=== PATIENT | female | born 1940 | race Caucasian/White ===

== ENCOUNTER 2016-11-29 18:42 | Inpatient (IN) | payer MEDICARE, OTHER ==
[~2016-11-29] VITALS: Ht 162.6 cm; Wt 71.8 kg
--- NOTE | 2016-11-29 18:48 | ED.ADGEN ---
Past History Past Medical History: Dementia, UTI Adult General Chief Complaint Chief Complaint ".. Nothing is really bothering in me.." HPI HPI Patient is a 76 year old female who presents with above hx and complaints of mental status change. Pt. Primary is Dr. Jose Onofre. Pt. has a hx of dementia, Alzheimer, hyper thyroid. Pt has new exacerbation of dementia complaints, Hallucinations, increased confusion, urinating on floors, constantly agitated, walking floors , going into other pts. rooms, psychotic behaviors, talking to people not present. Patient recently had a neuro-psych evaluation prior to admission to [place], [place]. She has been a resident there since 11/28/16. Mohit Brasher, . Family advised patient has had some of these problems agitation, delusions, confusion, and disruptive behavior for some time, it just that behavioral management has become more difficult. Current [facility] at [facility] requested further evaluation because of behavior management problems. Review of Systems Review of Systems Constitutional: Denies fever or chills [] Eyes: Denies change in visual acuity, redness, or eye pain [] HENT: Denies nasal congestion or sore throat [] Respiratory: Denies cough or shortness of breath [] Cardiovascular: No additional information not addressed in HPI [] GI: Denies abdominal pain, nausea, vomiting, bloody stools or diarrhea [] : Denies dysuria or hematuria [] Musculoskeletal: Denies back pain or joint pain [] Integument: Denies rash or skin lesions [] Neurologic: Denies headache, focal weakness or sensory changes [] Endocrine: Denies polyuria or polydipsia [] Family History Family History Noncontributory Current Medications Current Medications Current Medications Medications (Trade) Dose Ordered Sig/Venita Start Time Stop Time Status Last Admin Dose Admin Diphenhydramine HCl (Benadryl) 25 mg STK-MED ONCE 11/29/16 20:02 11/29/16 20:03 DC Lorazepam (Ativan) 1 mg 1X ONCE 11/29/16 20:00 11/29/16 20:11 DC 11/29/16 20:05 1 MG Olanzapine (Zyprexa) 10 mg 1X ONCE 11/29/16 20:00 11/29/16 20:12 DC 11/29/16 20:05 10 MG See nursing for home meds Allergies Allergies Allergies Coded Allergies Type Severity Reaction Last Updated Verified No Known Drug Allergies 11/29/16 No NKDA Physical Exam Physical Exam Constitutional: no acute distress, non-toxic appearance. [] HENT: Normocephalic, atraumatic, bilateral external ears normal, oropharynx moist, no oral exudates, nose normal. [] Eyes: PERRLA, EOMI, conjunctiva normal, no discharge. [] Neck: Normal range of motion, no tenderness, supple, no stridor. [] Cardiovascular:Heart rate regular rhythm, no murmur , PMI to Lt. Lungs & Thorax: Bilateral breath sounds clear to auscultation at apexes. Abdomen: Bowel sounds normal, soft, no tenderness, no masses, no pulsatile masses. Obese. Skin: Warm, dry, no erythema, no rash. Poor turgor. Back: No tenderness, no CVA tenderness. [] Extremities: No tenderness, no cyanosis, no clubbing, ROM intact, no edema. Arthritic changes.- Neurologic: Alert and oriented X 3, gross motor function deficits,no gross sensory function deficits, moves all ext. on request and is ambulatory with slightly wide gait. . DTR's 2 patella and brachial. Psychologic: Affect mildly anxious, judgement unable to determine, mood normal. At base line per son and at her bedside. Current Patient Data Vital Signs Vital Signs Date Time Temp Pulse Resp B/P Pulse Ox O2 Delivery O2 Flow Rate FiO2 11/29/16 20:16 98.2 11/29/16 20:10 72 16 140/71 98 Room Air Lab Results Laboratory Tests Test 11/29/16 19:10 11/29/16 19:30 White Blood Count 7.5x10^3/uL (4.0-11.0) Red Blood Count 4.42x10^6/uL (3.50-5.40) Hemoglobin 13.4g/dL (12.0-15.5) Hematocrit 41.0% (36.0-47.0) Mean Corpuscular Volume 93fL (79-100) Mean Corpuscular Hemoglobin 30pg (25-35) Mean Corpuscular Hemoglobin Concent 33g/dL (31-37) Red Cell Distribution Width 14.2% (11.5-14.5) Platelet Count 215x10^3/uL (140-400) Neutrophils (%) (Auto) 68% (31-73) Lymphocytes (%) (Auto) 19% (24-48) L Monocytes (%) (Auto) 8% (0-9) Eosinophils (%) (Auto) 4% (0-3) H Basophils (%) (Auto) 1% (0-3) Neutrophils # (Auto) 5.1x10^3uL (1.8-7.7) Lymphocytes # (Auto) 1.4x10^3/uL (1.0-4.8) Monocytes # (Auto) 0.6x10^3/uL (0.0-1.1) Eosinophils # (Auto) 0.3x10^3/uL (0.0-0.7) Basophils # (Auto) 0.0x10^3/uL (0.0-0.2) Erythrocyte Sedimentation Rate Pending Sodium Level 141mmol/L (136-145) Potassium Level 3.7mmol/L (3.5-5.1) Chloride Level 106mmol/L (98-107) Carbon Dioxide Level 28mmol/L (21-32) Anion Gap 7 (6-14) Blood Urea Nitrogen 14mg/dL (7-20) Creatinine 0.9mg/dL (0.6-1.0) Estimated GFR (Cockcroft-Gault) 61.2 Glucose Level 182mg/dL (70-99) H Calcium Level 8.8mg/dL (8.5-10.1) Magnesium Level 2.1mg/dL (1.8-2.4) Total Bilirubin 0.6mg/dL (0.2-1.0) Direct Bilirubin 0.1mg/dL (0.0-0.2) Aspartate Amino Transferase (AST) 27U/L (15-37) Alanine Aminotransferase (ALT) 46U/L (14-59) Alkaline Phosphatase 75U/L (46-116) Creatine Kinase 188U/L (26-192) Creatine Kinase MB (Mass) 2.7ng/mL (0.0-3.6) Creatine Kinase MB Relative Index 1.4% (0-4) Troponin I Quantitative < 0.017ng/mL (0-0.055) C-Reactive Protein 1.6mg/L (0-3.3) XS-Gqv-M-Type Natriuretic Peptide 383pg/mL (0-124) H Total Protein 6.2g/dL (6.4-8.2) L Albumin 3.3g/dL (3.4-5.0) L Lipase 235U/L (73-393) Urine Collection Type U cath Urine Color Yellow Urine Clarity Clear Urine pH 5.0 Urine Specific [place] 1.015 Urine Protein Neg (NEG-TRACE) Urine Glucose (UA) Negmg/dL (NEG) Urine Ketones (Stick) 15mg/dL (NEG) Urine Blood Small (NEG) Urine Nitrite Pos (NEG) Urine Bilirubin Neg (NEG) Urine Urobilinogen Dipstick 0.2mg/dL (0.2 mg/dL) Urine Leukocyte Esterase Small (NEG) Urine RBC 1-2/HPF (0-2) Urine WBC >40/HPF (0-4) Urine Squamous Epithelial Cells Mod/LPF Urine Bacteria Mod/HPF (0-FEW) Urine Opiates Screen Neg (NEG) Urine Methadone Screen Neg (NEG) Urine Barbiturates Neg (NEG) Urine Phencyclidine Screen Neg (NEG) Urine Amphetamine/Methamphetamine Neg (NEG) Urine Benzodiazepines Screen Neg (NEG) Urine Cocaine Screen Neg (NEG) Urine Cannabinoids Screen Neg (NEG) Urine Ethyl Alcohol Neg (NEG) EKG EKG My interpretation of EKG shows a sinus rhythm at 81 bpm. Does have left axis deviation. Some anterior fascicular block. No finding to acute STEMI of contralateral changes. [] Radiology/Procedures Radiology/Procedures My interpretation CT of head shows dilated ventricles. Generalized atrophy. No findings of acute bleed, edema, shift, mass, or bleed or fracture. [] My interpretation chest x-ray shows chronic changes . Large H. Hernia. Course & Med Decision Making Course & Med Decision Making Pertinent Labs and Imaging studies reviewed. (See chart for details)./ Admit to Dr. Middleton, Consult to Med- Dr. Middleton- for follow up UA, Glucose and Thyroid and pending labs. UA still pending at time of admit. [] Final Impression Final Impression 1. Mental Status Change 2. Dementia[]-Alzheimer 3. History of hyperthyroid ? 4. Elevated Glucose 5. UTI 6. H. Hernia 7. Delusions Problems: Dragon Disclaimer Dragon Disclaimer This electronic medical record was generated, in whole or in part, using a voice recognition dictation system. JASON CUEVA MD Nov 29, 2016 18:48
--- NOTE | 2016-11-29 19:14 | EKG ---
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
[2016-11-29 19:48] LABS: BASO % 1 % (0-3); EOS # 0.3 x10^3/uL (0.0-0.7); EOS % 4 % (0-3); HEMOGLOBIN 13.4 g/dL (12.0-15.5); LYMPH # 1.4 x10^3/uL (1.0-4.8); LYMPH % 19 % (24-48); MEAN CORPUSCULAR HEMOGLOBIN 30 pg (25-35); MEAN CORPUSCULAR HGB CONC 33 g/dL (31-37); MEAN CORPUSCULAR VOLUME 93 fL (79-100); MONO # 0.6 x10^3/uL (0.0-1.1); MONO % 8 % (0-9); NEUT # 5.1 x10^3uL (1.8-7.7); NEUT % 68 % (31-73); PLATELET COUNT 215 x10^3/uL (140-400); RED BLOOD COUNT 4.42 x10^6/uL (3.50-5.40); RED CELL DISTRIBUTION WIDTH 14.2 % (11.5-14.5); WHITE BLOOD COUNT 7.5 x10^3/uL (4.0-11.0)
[2016-11-29] MEDS ORDERED: OLANZAPINE 2.5 MG TABLET PO ONE (20:00)
[2016-11-29] MEDS ORDERED: LORAZEPAM 1 MG TABLET. PO ONE (20:00)
[2016-11-29] MEDS ORDERED: DIPHENHYDRAMINE HCL 50 MG CAPSULE PO ONE (20:00)
[2016-11-29] MEDS ORDERED: DIPHENHYDRAMINE HCL 25 MG CAPSULE PO ONE (20:02)
[2016-11-29 20:09] LABS: ALBUMIN 3.3 g/dL (3.4-5.0); C REACTIVE PROTEIN 1.6 mg/L (0-3.3); CALCIUM 8.8 mg/dL (8.5-10.1); CREATININE 0.9 mg/dL (0.6-1.0); DIRECT BILIRUBIN 0.1 mg/dL (0.0-0.2); GFR 61.2; MAGNESIUM 2.1 mg/dL (1.8-2.4); POTASSIUM 3.7 mmol/L (3.5-5.1); TOTAL BILIRUBIN 0.6 mg/dL (0.2-1.0); TOTAL PROTEIN 6.2 g/dL (6.4-8.2)
[2016-11-29 20:10] LABS: AMPHETAMINE/METHAMPHETAMINE NEG (NEG); BARBITURATES NEG (NEG); BENZODIAZEPINES NEG (NEG); CANNABINOIDS NEG (NEG); COCAINE NEG (NEG); METHADONE NEG (NEG); OPIATES NEG (NEG); PHENCYCLIDINE NEG (NEG)
--- NOTE | 2016-11-29 20:13 | RAD ---
PROCEDURE CT of the head without contrast HISTORY Mental status change. Frequent falls. TECHNIQUE Standard noncontrast images are obtained. Exposure: One or more of the following individualized dose reduction techniques were utilized for this exam: 1. Automated exposure control. 2. Adjustment of the mA and/or kV according to patient size. 3. Use of iterative reconstruction technique. COMPARISON None FINDINGS Posterior fossa unremarkable. Partially included sinuses are clear. Visualized orbits unremarkable. No acute skull pathology. No acute intracranial hemorrhage, mass effect, midline shift or abnormal extra-axial fluid collection. Generalized atrophy is seen. Enlargement of the lateral ventricles may be due to atrophy, but hydrocephalus is possible as well. Low-density in the white matter bilaterally, typically represent small vessel ischemic disease in a patient of this age. Orbits unremarkable. Partially visualized paranasal sinuses are clear. No evidence of acute skull abnormality IMPRESSION 1. Chronic changes as detailed above. 2. No evidence of acute intracranial pathology. Electronically signed by: Deion Goldberg MD (Nov 29, 2016 20:12:49)
[2016-11-29 20:19] LABS: BILIRUBIN,URINE NEG (NEG); CLARITY,URINE CLEAR; COLOR,URINE YELLOW; GLUCOSE,URINE NEG (NEG); NITRITE,URINE POS (NEG); UROBILINOGEN,URINE 0.2 mg/dL (0.2 mg/dL)
[2016-11-29 20:20] LABS: BACTERIA,URINE MOD /HPF (0-FEW); SQUAMOUS EPITHELIAL CELL,UR MOD /LPF; WBC,URINE >40 /HPF (0-4)
[2016-11-29] MEDS ORDERED: [UNRECOGNIZED DRUG - CODE] PO (20:31)
[2016-11-29] MEDS ORDERED: SERT25TA PO (20:31)
[2016-11-29] MEDS ORDERED: MEMA5TAB PO ×2 (20:31)
[2016-11-29] MEDS ORDERED: CALC-222 PO (20:31)
[2016-11-29] MEDS ORDERED: LEVO25TA2 PO (20:31)
[2016-11-29] MEDS ORDERED: RIVA1PAT TD (20:31)
[2016-11-29] MEDS ORDERED: MEMA7CAP PO (20:31)
[2016-11-29] MEDS ORDERED: RALO60TA PO (20:31)
[2016-11-29] MEDS ORDERED: OLAN10TA5 PO (20:31)
[2016-11-29] MEDS ORDERED: OLAN2.5T3 PO (20:31)
[2016-11-29] MEDS ORDERED: MAG HYDROX/AL HYDROX/SIMETH 30 ML ORAL.SUSP PO PRN (20:45)
[2016-11-29] MEDS ORDERED: ACETAMINOPHEN 325 MG TABLET PO PRN (20:45)
[2016-11-29] MEDS ORDERED: METHYL SALICYLATE/MENTHOL TOPICAL OINTMENT 29GM TUBE. TP PRN (20:45)
[2016-11-29 21:16] LABS: SEDIMENTATION RATE 8 (0-25)
[2016-11-29] MEDS: CEPHALEXIN 500 MG CAPSULE PO SCH (21:39)
[2016-11-29] MEDS: MEMANTINE 5 MG TABLET. PO SCH (21:39)
[2016-11-29 22:37] VITALS: BP 129/70
[2016-11-29] MEDS ORDERED: IOHEXOL 300 MG/ML 75 ML VIAL. IV ONE (22:45)
[2016-11-29] MEDS ORDERED: CONTRAST GIVEN MC PRN (22:45)
--- NOTE | 2016-11-29 23:24 | RAD ---
PROCEDURE Bilateral lower extremity venous Doppler HISTORY elevated d-dimer 1.38
pt has no leg complaints

limted eval of the calf veins due to pt agitation TECHNIQUE Venous Doppler was utilized to evaluate the lower extremities. Real-time imaging with compression, color flow imaging and spectral Doppler with augmentation were utilized for evaluation. COMPARISON None FINDINGS The common femoral, femoral, greater saphenous, and popliteal veins are compressible in both lower extremities. There is normal antegrade flow with augmentation. There is flow with color imaging. There is flow with color imaging in the the calf veins although the calf veins are incompletely evaluated. IMPRESSION Negative for acute deep venous thrombosis, some limitation in evaluation of the calf veins. Electronically signed by: Barber Iniguez MD (Nov 29, 2016 23:23:10)
--- NOTE | 2016-11-30 00:51 | ACF ---
Admission Criteria Forms MENTAL STATUS CHANGE Clinical Indications for Inpatient Care (Place 'X' for any and all applicable criteria): Ongoing inpatient care may be needed for ANY ONE of the following(1)(2)(3)(5)(6) : [X]I. Suspected serious etiology (eg, medical disorder, SALES ENABLEMENT SPECIALIST event) of mental status change [ ]II. Danger to self or others not manageable at lower level of care [ ]III. Grave disability (eg, inability to perform self care necessary at lower level of care) [ ]IV. Agitation or inappropriate behavior interfering with care for primary condition (eg, attempting to discontinue lines or drains prematurely, unable to cooperate with respiratory care) [ ]V. Delirium [A] [D][E] as described by ANY ONE of the following(26): [ ]a) Delirium due to alcohol or sedative [F] withdrawal [ ]b) Delirium of uncertain etiology that has not responded to appropriate empiric treatment [ ]c) Delirium that prevents performance of a life-sustaining function (eg, feeding or hydrating oneself) [ ]. General contraindications and/or Inappropriate clinical situations for Observational Care in patients with Mental Status Change, when ANY ONE of the following is required: [ ]a) Prediction of prolongation of LOS based on ANY ONE of the following may be considered as a contraindication for observational care 2, 3, 4, 5, 6, 7, 8, 9, 10, 11 [ ]i) Age > 65 yrs. [ ]ii) Patient arriving by ambulance [ ]iii) Patient with high acuity [ ]iv) Patient requiring vital sign monitoring [ ]v) Patient on IV medication [ ]b) Systolic blood pressures 180mmHg 3,12 [ ]c) Patient with altered mental status including delirium and other alteration of consciousness, (3) [ ]d) Patient whose discharge disposition will be to a correction home or rehabilitation home should not be managed in Emergency Department Observation Unit. CMS rule requires 3 days hospital stay before such placement.3,13 [ ]e) Patient with failure to thrive due to broad array of etiologies 3,16,17 [ ]f) Inability to ambulate 3,14 Extended stay beyond goal length of stay for the primary condition may be needed until ALL of the following are present(3)(5): [ ]a) Underlying medical etiology of mental status change is absent, or has been established and adequately treated [ ]b) Danger to self or others is absent or manageable at lower level of care. [ ]c) Behavior crisis management, including physical or chemical restraints, is not required or available at lower level of car [ ]d) Substance or alcohol withdrawal is absent or manageable at lower level of care. [ ]e) Behavioral symptoms (eg, agitation, somnolence, inappropriate behavior) are absent, or are manageable at lower level of care. The original [facility] content created by [facility] has been revised. The portions of the content which have been revised are identified through the use of italic text or in bold, and [facility] has neither reviewed nor approved the modified material. All other unmodified content is copyright [facility]. Please see references footnoted in the original [facility] edition 2016 Admission Criteria Met?: Yes UBALDO HURTADO Nov 30, 2016 00:51
--- NOTE | 2016-11-30 01:24 | RAD ---
PROCEDURE CT arteriogram of the chest HISTORY 253283.001 Elevated D-Dimer. IV contrast omni 300 75cc. No priors. TECHNIQUE One or more of the following individualized dose reduction techniques were utilized for this examination: 1. Automated exposure control; 2. Adjustment of the mA and/or kV according to patient size; 3. Use of iterative reconstruction technique.One or more of the following individualized dose reduction techniques were utilized for this examination: 1. Automated exposure control; 2. Adjustment of the mA and/or kV according to patient size; 3. Use of iterative reconstruction technique. CT arteriogram was done using 75 mL of Omnipaque 300 contrast sagittal and coronal MIP images were reconstructed. COMPARISON None FINDINGS There is a thyroid nodule on the right. There is no mediastinal adenopathy or pleural effusion. There is a large hiatus hernia. The visualized portions of the liver and spleen are normal. Adrenal glands are normal. There is a large cyst at the upper pole of the left kidney. There is no acute infiltrate other than mild basilar atelectasis. The study is negative for evidence of a pulmonary embolus. IMPRESSION No acute pulmonary embolus Large hiatus hernia No acute infiltrates. Right thyroid nodule Electronically signed by: Barber Iniguez MD (Nov 30, 2016 01:22:35)
[2016-11-30] MEDS: LEVOTHYROXINE 25 MCG TABLET. PO SCH (05:47)
[2016-11-30 06:52] VITALS: BP 108/73
[2016-11-30] MEDS: CEPHALEXIN 500 MG CAPSULE PO SCH ×3 (07:35→19:45)
[2016-11-30] MEDS: MEMANTINE 5 MG TABLET. PO SCH ×2 (07:35→19:45)
[2016-11-30] MEDS: VITAMIN B COMPLEX CAPSULE. PO SCH (08:02)
[2016-11-30] MEDS: FOLIC ACID 0.4 MG TABLET PO SCH (08:02)
[2016-11-30] MEDS: RIVASTIGMINE 4.6MG PATCH. TD SCH (08:03)
[2016-11-30] MEDS: RALOXIFENE 60 MG TABLET. PO SCH (08:03)
[2016-11-30] MEDS: SERTRALINE 25 MG TABLET. PO SCH (08:03)
[2016-11-30] MEDS: CALCIUM CARB/VIT D3 500/200 TABLET PO SCH (08:03)
--- NOTE | 2016-11-30 08:24 | RAD ---
Chest, 2 views, 11/29/2016: History: Frequent falls, mental status change The patient is rotated to the right. There is a large hiatal hernia containing gas. The heart size and pulmonary vascularity are normal. There is a calcified granuloma in the left base. There are a few scattered parenchymal scars. No acute infiltrate is seen. There is no evidence of pleural fluid. Moderate spurring is present in the spine. IMPRESSION: 1. Large hiatal hernia. 2. No acute cardiopulmonary abnormality is detected.
--- NOTE | 2016-11-30 08:30 | PDOC ---
Exam Olivier Demential Exam: Olivier Note: Please also refer to the separate dictated note~for this date of service dictated separately.~Patient seen individually. Discussed the patient with Nursing staff reviewed the chart.~Reviewed interim history and current functioning. Reviewed vital signs,~Labs/ Radiology~and current medications noted below. Continue current treatment with the changes noted in the dictated addendum note Assessment: Vital Signs: Vital Signs Date Time Temp Pulse Resp B/P Pulse Ox O2 Delivery O2 Flow Rate FiO2 11/30/16 06:52 98.9 75 22 108/73 96 Room Air Labs: Laboratory Tests Test 11/29/16 19:10 11/29/16 19:30 White Blood Count 7.5x10^3/uL (4.0-11.0) Red Blood Count 4.42x10^6/uL (3.50-5.40) Hemoglobin 13.4g/dL (12.0-15.5) Hematocrit 41.0% (36.0-47.0) Mean Corpuscular Volume 93fL (79-100) Mean Corpuscular Hemoglobin 30pg (25-35) Mean Corpuscular Hemoglobin Concent 33g/dL (31-37) Red Cell Distribution Width 14.2% (11.5-14.5) Platelet Count 215x10^3/uL (140-400) Neutrophils (%) (Auto) 68% (31-73) Lymphocytes (%) (Auto) 19% (24-48) L Monocytes (%) (Auto) 8% (0-9) Eosinophils (%) (Auto) 4% (0-3) H Basophils (%) (Auto) 1% (0-3) Neutrophils # (Auto) 5.1x10^3uL (1.8-7.7) Lymphocytes # (Auto) 1.4x10^3/uL (1.0-4.8) Monocytes # (Auto) 0.6x10^3/uL (0.0-1.1) Eosinophils # (Auto) 0.3x10^3/uL (0.0-0.7) Basophils # (Auto) 0.0x10^3/uL (0.0-0.2) Erythrocyte Sedimentation Rate 8 (0-25) Prothrombin Time 10.5SEC (9.4-11.4) Prothrombin Time INR 1.0 (0.9-1.1) PTT 21SEC (23-33) L D-Dimer ([place]) 1.38mg/L (0.00-0.50) H Sodium Level 141mmol/L (136-145) Potassium Level 3.7mmol/L (3.5-5.1) Chloride Level 106mmol/L (98-107) Carbon Dioxide Level 28mmol/L (21-32) Anion Gap 7 (6-14) Blood Urea Nitrogen 14mg/dL (7-20) Creatinine 0.9mg/dL (0.6-1.0) Estimated GFR (Cockcroft-Gault) 61.2 Glucose Level 182mg/dL (70-99) H Calcium Level 8.8mg/dL (8.5-10.1) Magnesium Level 2.1mg/dL (1.8-2.4) Total Bilirubin 0.6mg/dL (0.2-1.0) Direct Bilirubin 0.1mg/dL (0.0-0.2) Aspartate Amino Transferase (AST) 27U/L (15-37) Alanine Aminotransferase (ALT) 46U/L (14-59) Alkaline Phosphatase 75U/L (46-116) Creatine Kinase 188U/L (26-192) Creatine Kinase MB (Mass) 2.7ng/mL (0.0-3.6) Creatine Kinase MB Relative Index 1.4% (0-4) Troponin I Quantitative < 0.017ng/mL (0-0.055) C-Reactive Protein 1.6mg/L (0-3.3) AC-Ema-S-Type Natriuretic Peptide 383pg/mL (0-124) H Total Protein 6.2g/dL (6.4-8.2) L Albumin 3.3g/dL (3.4-5.0) L Lipase 235U/L (73-393) Urine Collection Type U cath Urine Color Yellow Urine Clarity Clear Urine pH 5.0 Urine Specific [place] 1.015 Urine Protein Neg (NEG-TRACE) Urine Glucose (UA) Negmg/dL (NEG) Urine Ketones (Stick) 15mg/dL (NEG) Urine Blood Small (NEG) Urine Nitrite Pos (NEG) Urine Bilirubin Neg (NEG) Urine Urobilinogen Dipstick 0.2mg/dL (0.2 mg/dL) Urine Leukocyte Esterase Small (NEG) Urine RBC 1-2/HPF (0-2) Urine WBC >40/HPF (0-4) Urine Squamous Epithelial Cells Mod/LPF Urine Bacteria Mod/HPF (0-FEW) Urine Opiates Screen Neg (NEG) Urine Methadone Screen Neg (NEG) Urine Barbiturates Neg (NEG) Urine Phencyclidine Screen Neg (NEG) Urine Amphetamine/Methamphetamine Neg (NEG) Urine Benzodiazepines Screen Neg (NEG) Urine Cocaine Screen Neg (NEG) Urine Cannabinoids Screen Neg (NEG) Urine Ethyl Alcohol Neg (NEG) Current Medications: Meds: Current Medications Diphenhydramine HCl (Benadryl) 50 mg 1X ONCE PO Last administered on 20:00; Start 11/29/16 at 20:00; Stop 11/29/16 at 20:11; Status DC Olanzapine (Zyprexa) 10 mg 1X ONCE PO Last administered on 11/29/16 20:05; Start 11/29/16 at 20:00; Stop 11/29/16 at 20:12; Status DC Lorazepam (Ativan) 1 mg 1X ONCE PO Last administered on 11/29/16 20:05; Start 11/29/16 at 20:00; Stop 11/29/16 at 20:11; Status DC Diphenhydramine HCl (Benadryl) 25 mg STK-MED ONCE PO ; Start 11/29/16 at 20:02; Stop 11/29/16 at 20:03; Status DC Cephalexin HCl (Keflex) 500 mg TID PO Last administered on 11/30/16 07:35; Start 11/29/16 at 21:00 Acetaminophen (Tylenol) 650 mg PRN Q6HRS PRN PO PAIN / TEMP; Start 11/29/16 at 20:45 Multi-Ingredient Ointment (Analgesic [place]) 1 sagar PRN QID PRN TP MUSCLE PAIN; Start 11/29/16 at 20:45 Al Hydroxide/Mg Hydroxide (Mylanta Plus Xs) 15 ml PRN AFTMEALHC PRN PO DYSPEPSIA; Start 11/29/16 at 20:45 Magnesium Hydroxide (Milk Of Magnesia) 2,400 mg PRN QHS PRN PO CONSTIPATION; Start 11/29/16 at 20:45 Memantine (Namenda) 5 mg BID PO Last administered on 11/30/16 07:35; Start at 21:00 Rivastigmine (Exelon) 1 patch DAILY TD Last administered on 11/30/16 08:03; Start 11/30/16 at 09:00 Sertraline HCl (Zoloft) 25 mg DAILY PO Last administered on 11/30/16 08:03; Start 11/30/16 at 09:00 Olanzapine (Zyprexa Zydis) 2.5 mg PRN Q2HR PRN PO Psych; Start 11/29/16 at 20: 45 Calcium/Vitamin D (Oscal D 500mg/ 200uts) 1 tab DAILYWBKFT PO Last administered on 11/30/16 08:03; Start 11/30/16 at 08:00 Levothyroxine Sodium (Synthroid) 25 mcg DAILY06 PO Last administered on 05:47; Start 11/30/16 at 06:00 Raloxifene HCl (Evista) 60 mg DAILY PO Last administered on 11/30/16 08:03; Start 11/30/16 at 09:00 Vitamin B Complex 1 cap DAILY PO Last administered on 11/30/16 08:02; Start at 09:00 Iohexol (Omnipaque 300 Mg/ml) 75 ml 1X ONCE IV ; Start 11/29/16 at 22:45; Stop 11/29/16 at 22:46; Status DC Info (Do NOT chart on this entry -- for MONITORING) 1 each PRN DAILY PRN MC SEE COMMENTS; Start 11/29/16 at 22:45; Stop 12/01/16 at 22:44 Folic Acid (Folic Acid) 0.8 mg DAILY PO Last administered on 11/30/16 08:02; Start 11/30/16 at 09:00 Active Scripts Active Reported Zyprexa Zydis (Olanzapine) 10 Mg Tab.rapdis 10 Mg PO PRN Q4HRS PRN Zyprexa (Olanzapine) 2.5 Mg Tablet 2.5 Mg PO QHS Namenda (Memantine Hcl) 5 Mg Tablet 2.5 Mg PO QHS 4 Days Namenda (Memantine Hcl) 5 Mg Tablet 5 Mg PO DAILY 4 Days Synthroid (Levothyroxine Sodium) 25 Mcg Tablet 25 Mcg PO DAILY06 Zoloft (Sertraline Hcl) 25 Mg Tablet 25 Mg PO DAILY Oyster Shell 500 Mg + Vit D Tb (Calcium Carbonate/Vitamin D3) 1 Each Tablet 1 Tab PO DAILY Evista (Raloxifene Hcl) 60 Mg Tablet 60 Mg PO DAILY Gnp B-50 Complex Tablet (Vitamin B Complex/Folic Acid) 0.4 Mg Tablet.er 0.8 Mg PO DAILY Namenda Xr (Memantine Hcl) 7 Mg Cap.spr.24 7 Mg PO DAILY EXELON 4.6mg/24hr (Rivastigmine) 1 Each Patch.td24 1 Patch TD DAILY Diagnosis: Problems: (1) Mental status change YOGESH VELASQUEZ MD Nov 30, 2016 08:30
[2016-11-30 11:08] LABS: THYROXINE 5.8 ug/dL (4.5-12.0)
--- NOTE | 2016-11-30 11:47 | PDOC1 ---
History of Present Illness Reason for Visit: Behaviors History of Present Illness Pt has been having hallucinations, increased confusion, urinating on floors, constantly agitated, going into other patients' rooms, psychotic behaviors, visual hallucinations. She had been evaluated from a neuropsych perspective recently, and admitted to a [facility] on 11/28. Unfortunately, the behaviors were felt to have worsened, so she was sent here for evaluation and treatment. 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 Allergies: Coded Allergies: No Known Drug Allergies (Unverified , 11/29/16) Medications Current Medications Diphenhydramine HCl (Benadryl) 50 mg 1X ONCE PO Last administered on 20:00; Start 11/29/16 at 20:00; Stop 11/29/16 at 20:11; Status DC Olanzapine (Zyprexa) 10 mg 1X ONCE PO Last administered on 11/29/16 20:05; Start 11/29/16 at 20:00; Stop 11/29/16 at 20:12; Status DC Lorazepam (Ativan) 1 mg 1X ONCE PO Last administered on 11/29/16 20:05; Start 11/29/16 at 20:00; Stop 11/29/16 at 20:11; Status DC Diphenhydramine HCl (Benadryl) 25 mg STK-MED ONCE PO ; Start 11/29/16 at 20:02; Stop 11/29/16 at 20:03; Status DC Cephalexin HCl (Keflex) 500 mg TID PO Last administered on 11/30/16 07:35; Start 11/29/16 at 21:00 Acetaminophen (Tylenol) 650 mg PRN Q6HRS PRN PO PAIN / TEMP; Start 11/29/16 at 20:45 Multi-Ingredient Ointment (Analgesic [place]) 1 sagar PRN QID PRN TP MUSCLE PAIN; Start 11/29/16 at 20:45 Al Hydroxide/Mg Hydroxide (Mylanta Plus Xs) 15 ml PRN AFTMEALHC PRN PO DYSPEPSIA; Start 11/29/16 at 20:45 Magnesium Hydroxide (Milk Of Magnesia) 2,400 mg PRN QHS PRN PO CONSTIPATION; Start 11/29/16 at 20:45 Memantine (Namenda) 5 mg BID PO Last administered on 11/30/16 07:35; Start at 21:00 Rivastigmine (Exelon) 1 patch DAILY TD Last administered on 11/30/16 08:03; Start 11/30/16 at 09:00 Sertraline HCl (Zoloft) 25 mg DAILY PO Last administered on 11/30/16 08:03; Start 11/30/16 at 09:00 Olanzapine (Zyprexa Zydis) 2.5 mg PRN Q2HR PRN PO Psych; Start 11/29/16 at 20: 45 Calcium/Vitamin D (Oscal D 500mg/ 200uts) 1 tab DAILYWBKFT PO Last administered on 11/30/16 08:03; Start 11/30/16 at 08:00 Levothyroxine Sodium (Synthroid) 25 mcg DAILY06 PO Last administered on 05:47; Start 11/30/16 at 06:00 Raloxifene HCl (Evista) 60 mg DAILY PO Last administered on 11/30/16 08:03; Start 11/30/16 at 09:00 Vitamin B Complex 1 cap DAILY PO Last administered on 11/30/16 08:02; Start at 09:00 Iohexol (Omnipaque 300 Mg/ml) 75 ml 1X ONCE IV ; Start 11/29/16 at 22:45; Stop 11/29/16 at 22:46; Status DC Info (Do NOT chart on this entry -- for MONITORING) 1 each PRN DAILY PRN MC SEE COMMENTS; Start 11/29/16 at 22:45; Stop 12/01/16 at 22:44 Folic Acid (Folic Acid) 0.8 mg DAILY PO Last administered on 11/30/16 08:02; Start 11/30/16 at 09:00 Active Scripts Active Reported Zyprexa Zydis (Olanzapine) 10 Mg Tab.rapdis 10 Mg PO PRN Q4HRS PRN Zyprexa (Olanzapine) 2.5 Mg Tablet 2.5 Mg PO QHS Namenda (Memantine Hcl) 5 Mg Tablet 2.5 Mg PO QHS 4 Days Namenda (Memantine Hcl) 5 Mg Tablet 5 Mg PO DAILY 4 Days Synthroid (Levothyroxine Sodium) 25 Mcg Tablet 25 Mcg PO DAILY06 Zoloft (Sertraline Hcl) 25 Mg Tablet 25 Mg PO DAILY Oyster Shell 500 Mg + Vit D Tb (Calcium Carbonate/Vitamin D3) 1 Each Tablet 1 Tab PO DAILY Evista (Raloxifene Hcl) 60 Mg Tablet 60 Mg PO DAILY Gnp B-50 Complex Tablet (Vitamin B Complex/Folic Acid) 0.4 Mg Tablet.er 0.8 Mg PO DAILY Namenda Xr (Memantine Hcl) 7 Mg Cap.spr.24 7 Mg PO DAILY EXELON 4.6mg/24hr (Rivastigmine) 1 Each Patch.td24 1 Patch TD DAILY Exam Vital Signs Vital Signs Date Time Temp Pulse Resp B/P Pulse Ox O2 Delivery O2 Flow Rate FiO2 11/30/16 06:52 98.9 75 22 108/73 96 Room Air General Appearance: Alert, Cooperative, No acute distress HEENT: Atraumatic, PERRLA, EOMI, Mucous membr. moist/pink, Other (Neck supple, no JVD, no thyromegaly) Respiratory: Clear to auscultation, Normal air movement Heart: Regular rate, Normal S1, Normal S2, No murmurs Abdominal: Normal bowel sounds, Soft, No tenderness, No masses Extremities: Other (Trace BLE edema) Skin: No rashes Neuro: Other (No focal findings) Psych/Mental Status: Other (Cooperative, not aware of her surroundings.) Assessment/Plan Assessment/Plan 1. Dementia w/ behavioral disturbances: Per Dr. Middleton 2. Osteoporosis: Continue Evista. 3. Hypothyroid: F/u on TSH, continue Levothyroxine. 4. Thyroid nodule: Incidental finding on CT, can pursue sono as outpatient if family wishes. 5. D-Dimer elevateD: Ct chest neg, venous doppler neg. 6. DVT proph: Pt covered in bruises due to frequent falls, will encourage ambulation w/ assistance, no blood thinners. COURSE Allergies Coded Allergies Type Severity Reaction Last Updated Verified No Known Drug Allergies 11/29/16 No Laboratory Tests Test 11/29/16 19:10 11/29/16 19:30 11/29/16 20:50 White Blood Count 7.5x10^3/uL (4.0-11.0) Red Blood Count 4.42x10^6/uL (3.50-5.40) Hemoglobin 13.4g/dL (12.0-15.5) Hematocrit 41.0% (36.0-47.0) Mean Corpuscular Volume 93fL (79-100) Mean Corpuscular Hemoglobin 30pg (25-35) Mean Corpuscular Hemoglobin Concent 33g/dL (31-37) Red Cell Distribution Width 14.2% (11.5-14.5) Platelet Count 215x10^3/uL (140-400) Neutrophils (%) (Auto) 68% (31-73) Lymphocytes (%) (Auto) 19% (24-48) Monocytes (%) (Auto) 8% (0-9) Eosinophils (%) (Auto) 4% (0-3) Basophils (%) (Auto) 1% (0-3) Neutrophils # (Auto) 5.1x10^3uL (1.8-7.7) Lymphocytes # (Auto) 1.4x10^3/uL (1.0-4.8) Monocytes # (Auto) 0.6x10^3/uL (0.0-1.1) Eosinophils # (Auto) 0.3x10^3/uL (0.0-0.7) Basophils # (Auto) 0.0x10^3/uL (0.0-0.2) Erythrocyte Sedimentation Rate 8 (0-25) Prothrombin Time 10.5SEC (9.4-11.4) Prothromb Time International Ratio 1.0 (0.9-1.1) Activated Partial Thromboplast Time 21SEC (23-33) D-Dimer (Letha) 1.38mg/L (0.00-0.50) Sodium Level 141mmol/L (136-145) Potassium Level 3.7mmol/L (3.5-5.1) Chloride Level 106mmol/L (98-107) Carbon Dioxide Level 28mmol/L (21-32) Anion Gap 7 (6-14) Blood Urea Nitrogen 14mg/dL (7-20) Creatinine 0.9mg/dL (0.6-1.0) Estimated GFR (Cockcroft-Gault) 61.2 Glucose Level 182mg/dL (70-99) Calcium Level 8.8mg/dL (8.5-10.1) Magnesium Level 2.1mg/dL (1.8-2.4) Total Bilirubin 0.6mg/dL (0.2-1.0) Direct Bilirubin 0.1mg/dL (0.0-0.2) Aspartate Amino Transf (AST/SGOT) 27U/L (15-37) Alanine Aminotransferase (ALT/SGPT) 46U/L (14-59) Alkaline Phosphatase 75U/L (46-116) Creatine Kinase 188U/L (26-192) Creatine Kinase MB (Mass) 2.7ng/mL (0.0-3.6) Creatine Kinase MB Relative Index 1.4% (0-4) Troponin I Quantitative < 0.017ng/mL (0-0.055) C-Reactive Protein 1.6mg/L (0-3.3) EN-Ysd-D-Type Natriuretic Peptide 383pg/mL (0-124) Total Protein 6.2g/dL (6.4-8.2) Albumin 3.3g/dL (3.4-5.0) Lipase 235U/L (73-393) Urine Collection Type U cath Urine Color Yellow Urine Clarity Clear Urine pH 5.0 Urine Specific [place]askell 1.015 Urine Protein Neg (NEG-TRACE) Urine Glucose (UA) Negmg/dL (NEG) Urine Ketones (Stick) 15mg/dL (NEG) Urine Blood Small (NEG) Urine Nitrite Pos (NEG) Urine Bilirubin Neg (NEG) Urine Urobilinogen Dipstick 0.2mg/dL (0.2 mg/dL) Urine Leukocyte Esterase Small (NEG) Urine RBC 1-2/HPF (0-2) Urine WBC >40/HPF (0-4) Urine Squamous Epithelial Cells Mod/LPF Urine Bacteria Mod/HPF (0-FEW) Urine Opiates Screen Neg (NEG) Urine Methadone Screen Neg (NEG) Urine Barbiturates Neg (NEG) Urine Phencyclidine Screen Neg (NEG) Urine Amphetamine/Methamphetamine Neg (NEG) Urine Benzodiazepines Screen Neg (NEG) Urine Cocaine Screen Neg (NEG) Urine Cannabinoids Screen Neg (NEG) Urine Ethyl Alcohol Neg (NEG) Thyroxine (T4) 5.8ug/dL (4.5-12.0) Total Triiodothyronine 93ng/dL (71-180) Current Medications Medications (Trade) Dose Ordered Sig/Venita Route PRN Reason Start Time Stop Time Status Last Admin Dose Admin Diphenhydramine HCl (Benadryl) 50 mg 1X ONCE PO 11/29/16 20:00 11/29/16 20:11 DC 11/29/16 20:00 Olanzapine (Zyprexa) 10 mg 1X ONCE PO 11/29/16 20:00 11/29/16 20:12 DC 11/29/16 20:05 Lorazepam (Ativan) 1 mg 1X ONCE PO 11/29/16 20:00 11/29/16 20:11 DC 11/29/16 20:05 Diphenhydramine HCl (Benadryl) 25 mg STK-MED ONCE PO 11/29/16 20:02 11/29/16 20:03 DC Cephalexin HCl (Keflex) 500 mg TID PO 11/29/16 21:00 11/30/16 07:35 Acetaminophen (Tylenol) 650 mg PRN Q6HRS PRN PO PAIN / TEMP 11/29/16 20:45 Multi-Ingredient Ointment (Analgesic [place]) 1 sagar PRN QID PRN TP MUSCLE PAIN 11/29/16 20:45 Al Hydroxide/Mg Hydroxide (Mylanta Plus Xs) 15 ml PRN AFTMEALHC PRN PO DYSPEPSIA 11/29/16 20:45 Magnesium Hydroxide (Milk Of Magnesia) 2,400 mg PRN QHS PRN PO CONSTIPATION 11/29/16 20:45 Memantine (Namenda) 5 mg BID PO 11/29/16 21:00 11/30/16 07:35 Rivastigmine (Exelon) 1 patch DAILY TD 11/30/16 09:00 11/30/16 08:03 Sertraline HCl (Zoloft) 25 mg DAILY PO 11/30/16 09:00 11/30/16 08:03 Olanzapine (Zyprexa Zydis) 2.5 mg PRN Q2HR PRN PO Psych 11/29/16 20:45 Calcium/Vitamin D (Oscal D 500mg/ 200uts) 1 tab DAILYWBKFT PO 11/30/16 08:00 11/30/16 08:03 Levothyroxine Sodium (Synthroid) 25 mcg DAILY06 PO 11/30/16 06:00 11/30/16 05:47 Raloxifene HCl (Evista) 60 mg DAILY PO 11/30/16 09:00 11/30/16 08:03 Vitamin B Complex 1 cap DAILY PO 11/30/16 09:00 11/30/16 08:02 Iohexol (Omnipaque 300 Mg/ml) 75 ml 1X ONCE IV 11/29/16 22:45 11/29/16 22:46 DC Info (Do NOT chart on this entry -- for MONITORING) 1 each PRN DAILY PRN MC SEE COMMENTS 11/29/16 22:45 12/01/16 22:44 Folic Acid (Folic Acid) 0.8 mg DAILY PO 11/30/16 09:00 11/30/16 08:02 Vital Signs Date Time Temp Pulse Resp B/P Pulse Ox O2 Delivery O2 Flow Rate FiO2 11/30/16 06:52 98.9 75 22 108/73 [address] of the head without contrast HISTORY Mental status change. Frequent falls. TECHNIQUE Standard noncontrast images are obtained. Exposure: One or more of the following individualized dose reduction techniques were utilized for this exam: 1. Automated exposure control. 2. Adjustment of the mA and/or kV according to patient size. 3. Use of iterative reconstruction technique. COMPARISON None FINDINGS Posterior fossa unremarkable. Partially included sinuses are clear. Visualized orbits unremarkable. No acute skull pathology. No acute intracranial hemorrhage, mass effect, midline shift or abnormal extra-axial fluid collection. Generalized atrophy is seen. Enlargement of the lateral ventricles may be due to atrophy, but hydrocephalus is possible as well. Low-density in the white matter bilaterally, typically represent small vessel ischemic disease in a patient of this age. Orbits unremarkable. Partially visualized paranasal sinuses are clear. No evidence of acute skull abnormality IMPRESSION 1. Chronic changes as detailed above. 2. No evidence of acute intracranial pathology. Chest, 2 views, 11/29/2016: History: Frequent falls, mental status change The patient is rotated to the right. There is a large hiatal hernia containing gas. The heart size and pulmonary vascularity are normal. There is a calcified granuloma in the left base. There are a few scattered parenchymal scars. No acute infiltrate is seen. There is no evidence of pleural fluid. Moderate spurring is present in the spine. IMPRESSION: 1. Large hiatal hernia. 2. No acute cardiopulmonary abnormality is detected. PROCEDURE Bilateral lower extremity venous Doppler HISTORY elevated d-dimer 1.38
pt has no leg complaints

limted eval of the calf veins due to pt agitation TECHNIQUE Venous Doppler was utilized to evaluate the lower extremities. Real-time imaging with compression, color flow imaging and spectral Doppler with augmentation were utilized for evaluation. COMPARISON None FINDINGS The common femoral, femoral, greater saphenous, and popliteal veins are compressible in both lower extremities. There is normal antegrade flow with augmentation. There is flow with color imaging. There is flow with color imaging in the the calf veins although the calf veins are incompletely evaluated. IMPRESSION Negative for acute deep venous thrombosis, some limitation in evaluation of the calf veins. PROCEDURE CT arteriogram of the chest HISTORY 711230.001 Elevated D-Dimer. IV contrast omni 300 75cc. No priors. TECHNIQUE One or more of the following individualized dose reduction techniques were utilized for this examination: 1. Automated exposure control; 2. Adjustment of the mA and/or kV according to patient size; 3. Use of iterative reconstruction technique.One or more of the following individualized dose reduction techniques were utilized for this examination: 1. Automated exposure control; 2. Adjustment of the mA and/or kV according to patient size; 3. Use of iterative reconstruction technique. CT arteriogram was done using 75 mL of Omnipaque 300 contrast sagittal and coronal MIP images were reconstructed. COMPARISON None FINDINGS There is a thyroid nodule on the right. There is no mediastinal adenopathy or pleural effusion. There is a large hiatus hernia. The visualized portions of the liver and spleen are normal. Adrenal glands are normal. There is a large cyst at the upper pole of the left kidney. There is no acute infiltrate other than mild basilar atelectasis. The study is negative for evidence of a pulmonary embolus. IMPRESSION No acute pulmonary embolus Large hiatus hernia No acute infiltrates. Right thyroid nodule SILVINA ENNIS MD Nov 30, 2016 11:46
[2016-11-30 13:31] LABS: IRON,SERUM 50 ug/dL (50-170)
[2016-11-30 15:46] VITALS: BP 126/90
[2016-11-30] MEDS: traZODone 50 MG TABLET. PO PRN ×2 (19:46→21:08)
[2016-11-30] MEDS: OLANZAPINE ZYDIS 5 MG TAB.RAPDIS PO PRN (21:47)
[2016-12-01] MEDS: LEVOTHYROXINE 25 MCG TABLET. PO SCH (05:56)
[2016-12-01 06:07] VITALS: BP 161/65
[2016-12-01] MEDS: RALOXIFENE 60 MG TABLET. PO SCH (07:57)
[2016-12-01] MEDS: CALCIUM CARB/VIT D3 500/200 TABLET PO SCH (07:57)
[2016-12-01] MEDS: RIVASTIGMINE 4.6MG PATCH. TD SCH (07:57)
[2016-12-01] MEDS: MEMANTINE 5 MG TABLET. PO SCH ×2 (07:57→20:16)
[2016-12-01] MEDS: VITAMIN B COMPLEX CAPSULE. PO SCH (07:57)
[2016-12-01] MEDS: SERTRALINE 25 MG TABLET. PO SCH (07:57)
[2016-12-01] MEDS: FOLIC ACID 0.4 MG TABLET PO SCH (07:57)
[2016-12-01] MEDS: CEPHALEXIN 500 MG CAPSULE PO SCH ×2 (07:57→13:48)
[2016-12-01 09:08] LABS: RPR REFLEX Non Reactive (Non Reactive)
--- NOTE | 2016-12-01 09:12 | PDOC ---
Exam Olivier Demential Exam: Olivier Note: Please also refer to the separate dictated note~for this date of service dictated separately.~Patient seen individually. Discussed the patient with Nursing staff reviewed the chart.~Reviewed interim history and current functioning. Reviewed vital signs,~Labs/ Radiology~and current medications noted below. Continue current treatment with the changes noted in the dictated addendum note Assessment: Vital Signs: Vital Signs Date Time Temp Pulse Resp B/P Pulse Ox O2 Delivery O2 Flow Rate FiO2 12/01/16 06:07 98.1 72 18 161/65 96 11/30/16 06:52 Room Air I&O Intake and Output 12/01/16 07:00 Intake Total 1320 ml Balance 1320 ml Intake Oral 1320 ml Current Medications: Meds: Current Medications Diphenhydramine HCl (Benadryl) 50 mg 1X ONCE PO Last administered on 20:00; Start 11/29/16 at 20:00; Stop 11/29/16 at 20:11; Status DC Olanzapine (Zyprexa) 10 mg 1X ONCE PO Last administered on 11/29/16 20:05; Start 11/29/16 at 20:00; Stop 11/29/16 at 20:12; Status DC Lorazepam (Ativan) 1 mg 1X ONCE PO Last administered on 11/29/16 20:05; Start 11/29/16 at 20:00; Stop 11/29/16 at 20:11; Status DC Diphenhydramine HCl (Benadryl) 25 mg STK-MED ONCE PO ; Start 11/29/16 at 20:02; Stop 11/29/16 at 20:03; Status DC Cephalexin HCl (Keflex) 500 mg TID PO Last administered on 12/01/16 07:57; Start 11/29/16 at 21:00 Acetaminophen (Tylenol) 650 mg PRN Q6HRS PRN PO PAIN / TEMP; Start 11/29/16 at 20:45 Multi-Ingredient Ointment (Analgesic [place]) 1 sagar PRN QID PRN TP MUSCLE PAIN; Start 11/29/16 at 20:45 Al Hydroxide/Mg Hydroxide (Mylanta Plus Xs) 15 ml PRN AFTMEALHC PRN PO DYSPEPSIA; Start 11/29/16 at 20:45 Magnesium Hydroxide (Milk Of Magnesia) 2,400 mg PRN QHS PRN PO CONSTIPATION; Start 11/29/16 at 20:45 Memantine (Namenda) 5 mg BID PO Last administered on 12/01/16 07:57; Start at 21:00 Rivastigmine (Exelon) 1 patch DAILY TD Last administered on 12/01/16 07:57; Start 11/30/16 at 09:00 Sertraline HCl (Zoloft) 25 mg DAILY PO Last administered on 12/01/16 07:57; Start 11/30/16 at 09:00 Olanzapine (Zyprexa Zydis) 2.5 mg PRN Q2HR PRN PO Psych Last administered on 21:47; Start 11/29/16 at 20:45 Calcium/Vitamin D (Oscal D 500mg/ 200uts) 1 tab DAILYWBKFT PO Last administered on 12/01/16 07:57; Start 11/30/16 at 08:00 Levothyroxine Sodium (Synthroid) 25 mcg DAILY06 PO Last administered on 05:56; Start 11/30/16 at 06:00 Raloxifene HCl (Evista) 60 mg DAILY PO Last administered on 12/01/16 07:57; Start 11/30/16 at 09:00 Vitamin B Complex 1 cap DAILY PO Last administered on 12/01/16 07:57; Start at 09:00 Iohexol (Omnipaque 300 Mg/ml) 75 ml 1X ONCE IV ; Start 11/29/16 at 22:45; Stop 11/29/16 at 22:46; Status DC Info (Do NOT chart on this entry -- for MONITORING) 1 each PRN DAILY PRN MC SEE COMMENTS; Start 11/29/16 at 22:45; Stop 12/01/16 at 22:44 Folic Acid (Folic Acid) 0.8 mg DAILY PO Last administered on 12/01/16 07:57; Start 11/30/16 at 09:00 Trazodone HCl (Desyrel) 50 mg PRN QHS PRN PO INSOMNIA, MAY REPEAT X1 Last administered on 11/30/16 21:08; Start 11/30/16 at 16:45 Active Scripts Active Reported Zyprexa Zydis (Olanzapine) 10 Mg Tab.rapdis 10 Mg PO PRN Q4HRS PRN Zyprexa (Olanzapine) 2.5 Mg Tablet 2.5 Mg PO QHS Namenda (Memantine Hcl) 5 Mg Tablet 2.5 Mg PO QHS 4 Days Namenda (Memantine Hcl) 5 Mg Tablet 5 Mg PO DAILY 4 Days Synthroid (Levothyroxine Sodium) 25 Mcg Tablet 25 Mcg PO DAILY06 Zoloft (Sertraline Hcl) 25 Mg Tablet 25 Mg PO DAILY Oyster Shell 500 Mg + Vit D Tb (Calcium Carbonate/Vitamin D3) 1 Each Tablet 1 Tab PO DAILY Evista (Raloxifene Hcl) 60 Mg Tablet 60 Mg PO DAILY Gnp B-50 Complex Tablet (Vitamin B Complex/Folic Acid) 0.4 Mg Tablet.er 0.8 Mg PO DAILY Namenda Xr (Memantine Hcl) 7 Mg Cap.spr.24 7 Mg PO DAILY EXELON 4.6mg/24hr (Rivastigmine) 1 Each Patch.td24 1 Patch TD DAILY Diagnosis: Problems: (1) Mental status change YOGESH VELASQUEZ MD Dec 01, 2016 09:12
[2016-12-01 12:08] LABS: HEMOGLOBIN A1C 5.1 % (4.8-5.6)
[2016-12-01 15:43] VITALS: BP 119/66
--- NOTE | 2016-12-01 19:46 | HP ---
ADMIT DATE: 11/30/2016 This is a late entry for 11/30/2016. The patient was seen individually evening of 11/30/2016 for this assessment. Reviewed information from [facility], reviewed the chart, discussed with nursing staff. IDENTIFYING DATA: The patient is a 76-year-old female referred to us from [facility] in [place] by her primary care physician, Dr. Jose Rivera on account of increasing confusion, agitation, delusions, hallucinations inappropriate, aggressive, disruptive behaviors. The patient was urinating on the floor crawling on the floor getting into other patient's rooms, nonredirectable, agitated, aggressive and had failed outpatient psychiatric interventions. She had recently been hospitalized at the [facility] in [place] and had failed this treatment. Nursing staff had specifically called the prior to admission to get a sense from if he felt she needed to be rehospitalized given her recent psychiatric admission and he felt this was necessary given the extent of the patient's behaviors. CHIEF COMPLAINT: "No." HISTORY OF PRESENT ILLNESS: The patient has a history of dementia, Alzheimer's vascular type. More recently, she has been increasingly psychotic, agitated, disruptive, difficult to redirect. No clear suicidal or homicidal ideation. No clear history of bipolar disorder. PAST PSYCHIATRIC HISTORY: As above. MEDICAL HISTORY: Hyperthyroidism. She takes her medications crushed. DRUG ALLERGIES: Negative. CODE STATUS: DNR. LABORATORY DATA: UA is positive. Culture is pending. CURRENT PSYCHOTROPICS: Exelon patch 4.6 mg a day, Namenda 5 mg b.i.d., Zoloft 25 mg a day and we have added Zyprexa Zydis p.r.n. for psychosis, agitation and she was on scheduled Zyprexa 5 mg at bedtime at admission as well. FAMILY HISTORY: Noncontributory. SOCIAL HISTORY: The patient is . No alcohol or drug abuse, physical, sexual, or elder abuse. She is not known to be a perpetrator. Reaction to hospitalization, the patient oblivious of this. Assets: Supportive family, reasonably physically healthy. MENTAL STATUS EXAM: The patient was seen individually evening of 11/30/2016. She is oriented to herself. Insight, judgment, recent and remote memory, attention, concentration, fund of knowledge poor, consistent with her diagnosis. She is in a Broda chair, was attempting to eat a chocolate ice cream by pressing the cup and was unable to do this. I fed her most of the chocolate ice cream cup as I assessed her. REVIEW OF SYSTEMS: Ambulation impaired. No CV, , pulmonary, eye, ENT system symptoms on review. Reliability poor. PHYSICAL EXAMINATION: VITAL SIGNS: Temperature 98.9, BP 108/73, pulse 75, respirations 22. IMPRESSION: Major neurocognitive disorder, Alzheimer, vascular with depression, delusion, behavioral disturbance; anxiety disorder, unspecified; impulse control disorder, unspecified. Rest as above. PLAN: Admit to the geropsychiatry unit at [facility]. I will see the patient daily individually from a psychiatric standpoint. Request medical followup with Dr. Bob/Dr. Carson. Continue patient on her current psychotropics, observe baseline and make further adjustments as clinically indicated. May consider Depakote as a mood stabilizer, BuSpar for anxiety and/or increase of Zoloft and consider atypical antipsychotics if necessary and consider increase of Exelon patch as well. MAN Jaclyn VELASQUEZ MD DR: AMARJIT/mason JOB#: [id number] / [id number]
[2016-12-01] MEDS: AMOXICILLIN 500 MG CAPSULE PO SCH (20:16)
[2016-12-01] MEDS: MIRTAZAPINE 7.5 MG TABLET. PO SCH (20:17)
[2016-12-02] MEDS: LEVOTHYROXINE 25 MCG TABLET. PO SCH (05:15)
[2016-12-02 06:14] VITALS: BP 139/64
[2016-12-02] MEDS: MEMANTINE 5 MG TABLET. PO SCH ×2 (07:48→20:07)
[2016-12-02] MEDS: VITAMIN B COMPLEX CAPSULE. PO SCH (07:48)
[2016-12-02] MEDS: CALCIUM CARB/VIT D3 500/200 TABLET PO SCH (07:48)
[2016-12-02] MEDS: RALOXIFENE 60 MG TABLET. PO SCH (07:48)
[2016-12-02] MEDS: SERTRALINE 25 MG TABLET. PO SCH (07:48)
[2016-12-02] MEDS: AMOXICILLIN 500 MG CAPSULE PO SCH ×3 (07:48→20:06)
[2016-12-02] MEDS: RIVASTIGMINE 4.6MG PATCH. TD SCH (07:48)
[2016-12-02] MEDS: FOLIC ACID 0.4 MG TABLET PO SCH (07:48)
--- NOTE | 2016-12-02 09:53 | PDOC ---
Exam Olivier Demential Exam: Olivier Note: Please also refer to the separate dictated note~for this date of service dictated separately.~Patient seen individually. Discussed the patient with Nursing staff reviewed the chart.~Reviewed interim history and current functioning. Reviewed vital signs,~Labs/ Radiology~and current medications noted below. Continue current treatment with the changes noted in the dictated addendum note Assessment: Vital Signs: Vital Signs Date Time Temp Pulse Resp B/P Pulse Ox O2 Delivery O2 Flow Rate FiO2 12/02/16 06:14 98.3 78 20 139/64 93 11/30/16 06:52 Room Air I&O Intake and Output 12/02/16 07:00 Intake Total 1080 ml Balance 1080 ml Intake Oral 1080 ml Current Medications: Meds: Current Medications Diphenhydramine HCl (Benadryl) 50 mg 1X ONCE PO Last administered on 20:00; Start 11/29/16 at 20:00; Stop 11/29/16 at 20:11; Status DC Olanzapine (Zyprexa) 10 mg 1X ONCE PO Last administered on 11/29/16 20:05; Start 11/29/16 at 20:00; Stop 11/29/16 at 20:12; Status DC Lorazepam (Ativan) 1 mg 1X ONCE PO Last administered on 11/29/16 20:05; Start 11/29/16 at 20:00; Stop 11/29/16 at 20:11; Status DC Diphenhydramine HCl (Benadryl) 25 mg STK-MED ONCE PO ; Start 11/29/16 at 20:02; Stop 11/29/16 at 20:03; Status DC Cephalexin HCl (Keflex) 500 mg TID PO Last administered on 12/01/16 13:48; Start 11/29/16 at 21:00; Stop 12/01/16 at 14:15; Status DC Acetaminophen (Tylenol) 650 mg PRN Q6HRS PRN PO PAIN / TEMP; Start 11/29/16 at 20:45 Multi-Ingredient Ointment (Analgesic [place]) 1 sagar PRN QID PRN TP MUSCLE PAIN; Start 11/29/16 at 20:45 Al Hydroxide/Mg Hydroxide (Mylanta Plus Xs) 15 ml PRN AFTMEALHC PRN PO DYSPEPSIA; Start 11/29/16 at 20:45 Magnesium Hydroxide (Milk Of Magnesia) 2,400 mg PRN QHS PRN PO CONSTIPATION; Start 11/29/16 at 20:45 Memantine (Namenda) 5 mg BID PO Last administered on 12/02/16 07:48; Start at 21:00 Rivastigmine (Exelon) 1 patch DAILY TD Last administered on 12/02/16 07:48; Start 11/30/16 at 09:00 Sertraline HCl (Zoloft) 25 mg DAILY PO Last administered on 12/02/16 07:48; Start 11/30/16 at 09:00 Olanzapine (Zyprexa Zydis) 2.5 mg PRN Q2HR PRN PO Psych Last administered on 21:47; Start 11/29/16 at 20:45 Calcium/Vitamin D (Oscal D 500mg/ 200uts) 1 tab DAILYWBKFT PO Last administered on 12/02/16 07:48; Start 11/30/16 at 08:00 Levothyroxine Sodium (Synthroid) 25 mcg DAILY06 PO Last administered on 05:15; Start 11/30/16 at 06:00 Raloxifene HCl (Evista) 60 mg DAILY PO Last administered on 12/02/16 07:48; Start 11/30/16 at 09:00 Vitamin B Complex 1 cap DAILY PO Last administered on 12/02/16 07:48; Start at 09:00 Iohexol (Omnipaque 300 Mg/ml) 75 ml 1X ONCE IV ; Start 11/29/16 at 22:45; Stop 11/29/16 at 22:46; Status DC Info (Do NOT chart on this entry -- for MONITORING) 1 each PRN DAILY PRN MC SEE COMMENTS; Start 11/29/16 at 22:45; Stop 12/01/16 at 22:44; Status DC Folic Acid (Folic Acid) 0.8 mg DAILY PO Last administered on 12/02/16 07:48; Start 11/30/16 at 09:00 Trazodone HCl (Desyrel) 50 mg PRN QHS PRN PO INSOMNIA, MAY REPEAT X1 Last administered on 11/30/16 21:08; Start 11/30/16 at 16:45 Amoxicillin (Amoxil) 500 mg [id number] PO Last administered on 12/02/16 07:48; Start 12/01/16 at 21:00; Stop 12/08/16 at 20:59 Mirtazapine (Remeron) 7.5 mg QHS PO Last administered on 12/01/16 20:17; Start 12/01/16 at 21:00 Hydroxyzine HCl (Atarax) 25 mg PRN Q2HR PRN PO ANXIETY / AGITATION; Start 12/01 at 18:15 Active Scripts Active Reported Zyprexa Zydis (Olanzapine) 10 Mg Tab.rapdis 10 Mg PO PRN Q4HRS PRN Zyprexa (Olanzapine) 2.5 Mg Tablet 2.5 Mg PO QHS Namenda (Memantine Hcl) 5 Mg Tablet 2.5 Mg PO QHS 4 Days Namenda (Memantine Hcl) 5 Mg Tablet 5 Mg PO DAILY 4 Days Synthroid (Levothyroxine Sodium) 25 Mcg Tablet 25 Mcg PO DAILY06 Zoloft (Sertraline Hcl) 25 Mg Tablet 25 Mg PO DAILY Oyster Shell 500 Mg + Vit D Tb (Calcium Carbonate/Vitamin D3) 1 Each Tablet 1 Tab PO DAILY Evista (Raloxifene Hcl) 60 Mg Tablet 60 Mg PO DAILY Gnp B-50 Complex Tablet (Vitamin B Complex/Folic Acid) 0.4 Mg Tablet.er 0.8 Mg PO DAILY Namenda Xr (Memantine Hcl) 7 Mg Cap.spr.24 7 Mg PO DAILY EXELON 4.6mg/24hr (Rivastigmine) 1 Each Patch.td24 1 Patch TD DAILY Diagnosis: Problems: (1) Mental status change YOGESH VELASQUEZ MD Dec 02, 2016 09:53
[2016-12-02] MEDS: HYDROXYZINE HCL 25 MG TABLET PO PRN (11:21)
[2016-12-02 15:55] VITALS: BP 118/78
[2016-12-02] MEDS: QUEtiapine 25 MG TABLET. PO SCH (20:07)
[2016-12-02] MEDS: MIRTAZAPINE 7.5 MG TABLET. PO SCH (20:07)
[2016-12-03] MEDS: LEVOTHYROXINE 25 MCG TABLET. PO SCH (05:54)
[2016-12-03 06:18] VITALS: BP 117/77
--- NOTE | 2016-12-03 08:39 | PDOC ---
Exam Olivier Demential Exam: Olivier Note: Please also refer to the separate dictated note~for this date of service dictated separately.~Patient seen individually. Discussed the patient with Nursing staff reviewed the chart.~Reviewed interim history and current functioning. Reviewed vital signs,~Labs/ Radiology~and current medications noted below. Continue current treatment with the changes noted in the dictated addendum note Assessment: Vital Signs: Vital Signs Date Time Temp Pulse Resp B/P Pulse Ox O2 Delivery O2 Flow Rate FiO2 12/03/16 06:18 99.5 78 18 117/77 95 Room Air I&O Intake and Output 12/03/16 07:00 Intake Total 960 ml Balance 960 ml Intake Oral 960 ml Current Medications: Meds: Current Medications Diphenhydramine HCl (Benadryl) 50 mg 1X ONCE PO Last administered on 20:00; Start 11/29/16 at 20:00; Stop 11/29/16 at 20:11; Status DC Olanzapine (Zyprexa) 10 mg 1X ONCE PO Last administered on 11/29/16 20:05; Start 11/29/16 at 20:00; Stop 11/29/16 at 20:12; Status DC Lorazepam (Ativan) 1 mg 1X ONCE PO Last administered on 11/29/16 20:05; Start 11/29/16 at 20:00; Stop 11/29/16 at 20:11; Status DC Diphenhydramine HCl (Benadryl) 25 mg STK-MED ONCE PO ; Start 11/29/16 at 20:02; Stop 11/29/16 at 20:03; Status DC Cephalexin HCl (Keflex) 500 mg TID PO Last administered on 12/01/16 13:48; Start 11/29/16 at 21:00; Stop 12/01/16 at 14:15; Status DC Acetaminophen (Tylenol) 650 mg PRN Q6HRS PRN PO PAIN / TEMP; Start 11/29/16 at 20:45 Multi-Ingredient Ointment (Analgesic [place]) 1 sagar PRN QID PRN TP MUSCLE PAIN; Start 11/29/16 at 20:45 Al Hydroxide/Mg Hydroxide (Mylanta Plus Xs) 15 ml PRN AFTMEALHC PRN PO DYSPEPSIA; Start 11/29/16 at 20:45 Magnesium Hydroxide (Milk Of Magnesia) 2,400 mg PRN QHS PRN PO CONSTIPATION; Start 11/29/16 at 20:45 Memantine (Namenda) 5 mg BID PO Last administered on 12/02/16 20:07; Start at 21:00 Rivastigmine (Exelon) 1 patch DAILY TD Last administered on 12/02/16 07:48; Start 11/30/16 at 09:00 Sertraline HCl (Zoloft) 25 mg DAILY PO Last administered on 12/02/16 07:48; Start 11/30/16 at 09:00 Olanzapine (Zyprexa Zydis) 2.5 mg PRN Q2HR PRN PO Psych Last administered on 21:47; Start 11/29/16 at 20:45 Calcium/Vitamin D (Oscal D 500mg/ 200uts) 1 tab DAILYWBKFT PO Last administered on 12/02/16 07:48; Start 11/30/16 at 08:00 Levothyroxine Sodium (Synthroid) 25 mcg DAILY06 PO Last administered on 05:54; Start 11/30/16 at 06:00 Raloxifene HCl (Evista) 60 mg DAILY PO Last administered on 12/02/16 07:48; Start 11/30/16 at 09:00 Vitamin B Complex 1 cap DAILY PO Last administered on 12/02/16 07:48; Start at 09:00 Iohexol (Omnipaque 300 Mg/ml) 75 ml 1X ONCE IV ; Start 11/29/16 at 22:45; Stop 11/29/16 at 22:46; Status DC Info (Do NOT chart on this entry -- for MONITORING) 1 each PRN DAILY PRN MC SEE COMMENTS; Start 11/29/16 at 22:45; Stop 12/01/16 at 22:44; Status DC Folic Acid (Folic Acid) 0.8 mg DAILY PO Last administered on 12/02/16 07:48; Start 11/30/16 at 09:00 Trazodone HCl (Desyrel) 50 mg PRN QHS PRN PO INSOMNIA, MAY REPEAT X1 Last administered on 11/30/16 21:08; Start 11/30/16 at 16:45 Amoxicillin (Amoxil) 500 mg [id number] PO Last administered on 12/02/16 20:06; Start 12/01/16 at 21:00; Stop 12/08/16 at 20:59 Mirtazapine (Remeron) 7.5 mg QHS PO Last administered on 12/02/16 20:07; Start 12/01/16 at 21:00 Hydroxyzine HCl (Atarax) 25 mg PRN Q2HR PRN PO ANXIETY / AGITATION Last administered on 12/02/16 11:21; Start 12/01/16 at 18:15 Vitamin D (Vitamin D3) 50,000 unit WEEKLY PO ; Start 12/03/16 at 09:00 Quetiapine Fumarate (SEROquel) 12.5 mg BID PO Last administered on 12/02/16 20 :07; Start 12/02/16 at 21:00 Active Scripts Active Reported Zyprexa Zydis (Olanzapine) 10 Mg Tab.rapdis 10 Mg PO PRN Q4HRS PRN Zyprexa (Olanzapine) 2.5 Mg Tablet 2.5 Mg PO QHS Namenda (Memantine Hcl) 5 Mg Tablet 2.5 Mg PO QHS 4 Days Namenda (Memantine Hcl) 5 Mg Tablet 5 Mg PO DAILY 4 Days Synthroid (Levothyroxine Sodium) 25 Mcg Tablet 25 Mcg PO DAILY06 Zoloft (Sertraline Hcl) 25 Mg Tablet 25 Mg PO DAILY Oyster Shell 500 Mg + Vit D Tb (Calcium Carbonate/Vitamin D3) 1 Each Tablet 1 Tab PO DAILY Evista (Raloxifene Hcl) 60 Mg Tablet 60 Mg PO DAILY Gnp B-50 Complex Tablet (Vitamin B Complex/Folic Acid) 0.4 Mg Tablet.er 0.8 Mg PO DAILY Namenda Xr (Memantine Hcl) 7 Mg Cap.spr.24 7 Mg PO DAILY EXELON 4.6mg/24hr (Rivastigmine) 1 Each Patch.td24 1 Patch TD DAILY Diagnosis: Problems: (1) Mental status change YOGESH VELASQUEZ MD Dec 03, 2016 08:39
[2016-12-03] MEDS: AMOXICILLIN 500 MG CAPSULE PO SCH ×3 (09:18→19:20)
[2016-12-03] MEDS: CALCIUM CARB/VIT D3 500/200 TABLET PO SCH (09:18)
[2016-12-03] MEDS: SERTRALINE 25 MG TABLET. PO SCH (09:18)
[2016-12-03] MEDS: FOLIC ACID 0.4 MG TABLET PO SCH (09:18)
[2016-12-03] MEDS: MEMANTINE 5 MG TABLET. PO SCH ×2 (09:18→19:20)
[2016-12-03] MEDS: RALOXIFENE 60 MG TABLET. PO SCH (09:18)
[2016-12-03] MEDS: VITAMIN B COMPLEX CAPSULE. PO SCH (09:18)
[2016-12-03] MEDS: RIVASTIGMINE 4.6MG PATCH. TD SCH (09:18)
[2016-12-03] MEDS: QUEtiapine 25 MG TABLET. PO SCH ×2 (09:18→19:20)
[2016-12-03] MEDS: CHOLECALCIFEROL (VITAMIN D3) 50,000 UNIT CAPSULE PO SCH (09:20)
[2016-12-03] MEDS: HYDROXYZINE HCL 25 MG TABLET PO PRN (09:24)
[2016-12-03] MEDS: MAGNESIUM HYDROXIDE 2,400 MG/30 ML ORAL.SUSP. PO PRN ×2 (10:06→19:22)
--- NOTE | 2016-12-03 14:02 | PN ---
DATE: 12/01/2016 PSYCHIATRIC PROGRESS NOTE This is a late entry 12/01/2016, covers elements not covered in my initial note. SUBJECTIVE: The patient does have a UTI, which was nonresponsive to Keflex and this is being changed to Amoxil. She remains agitated, slept very poorly the night before. We will add Remeron 7.5 mg at bedtime. Nursing staff had called me earlier in the day because of her marked agitation and we had added hydroxyzine 25 mg q.2 hours p.r.n. anxiety, agitation, maximum 100 mg in 24 hours. REVIEW OF SYSTEMS: No eye, ENT, CV, , pulmonary system symptoms on review. She is in a Broda chair, oblivious of her surroundings, asking for her . MENTAL STATUS EXAM: Oriented to herself. Insight, judgment, recent and remote memory, attention, concentration, fund of knowledge poor, consistent with her diagnoses. LABORATORY DATA: Major neurocognitive disorder, Alzheimer, vascular with depression, delusion, behavioral disturbance; anxiety disorder, unspecified; impulse control disorder, unspecified. PLAN: Treat the UTI. Maintain Exelon patch 4.6 mg a day, Namenda 5 mg b.i.d., Zoloft 25 mg a day, Zyprexa Zydis p.r.n. We will add scheduled Seroquel 12.5 mg twice a day. Make further adjustments as clinically indicated. Hopefully, as the UTIs results she will do better with her mood lability as well. YOGESH VELASQUEZ MD DR: AMARJIT/mason JOB#: [id number] / [id number]
[2016-12-03 15:55] VITALS: BP 110/57
[2016-12-03] MEDS: MIRTAZAPINE 7.5 MG TABLET. PO SCH (19:20)
--- NOTE | 2016-12-04 02:28 | PN ---
DATE: 12/02/2016 This late entry for date of service 12/02/2016 covers elements not covered in my initial note. SUBJECTIVE: Per nursing report, the patient remains confused, oriented just to herself intermittently restless, anxious, trying to get out of the Broda chair. REVIEW OF SYSTEMS: Ambulation impaired. No CV, , pulmonary, eye, ENT system symptoms on review. Reliability poor. MENTAL STATUS EXAM: Oriented to herself. Insight, judgment, recent and remote memory, attention, concentration, fund of knowledge poor, consistent with her diagnosis mentioned in my initial note. She is trying to push herself out of the Broda, pulling on the alarm system, pushing on the table in front of her, nursing staff had to intervene. LABORATORY DATA: Reviewed. IMPRESSION: Major neurocognitive disorder, Alzheimer, vascular with depression, delusion, behavioral disturbance; anxiety disorder, unspecified; impulse control disorder, unspecified. PLAN: Maintain Seroquel 12.5 b.i.d., which was just started. Continue Remeron, Atarax, trazodone, Zoloft, and Exelon patch and Namenda at current dosage. Adjust further as clinically indicated. YOGESH VELASQUEZ MD DR: AMARJIT/mason JOB#: [id number] / [id number]
[2016-12-04] MEDS: LEVOTHYROXINE 25 MCG TABLET. PO SCH (05:49)
[2016-12-04 06:20] VITALS: BP 113/66
--- NOTE | 2016-12-04 08:36 | PDOC ---
Exam Olivier Demential Exam: Olivier Note: Please also refer to the separate dictated note~for this date of service dictated separately.~Patient seen individually. Discussed the patient with Nursing staff reviewed the chart.~Reviewed interim history and current functioning. Reviewed vital signs,~Labs/ Radiology~and current medications noted below. Continue current treatment with the changes noted in the dictated addendum note Assessment: Vital Signs: Vital Signs Date Time Temp Pulse Resp B/P Pulse Ox O2 Delivery O2 Flow Rate FiO2 12/04/16 06:20 98.6 71 18 113/66 95 Room Air I&O Intake and Output 12/04/16 07:00 Intake Total 1200 ml Balance 1200 ml Intake Oral 1200 ml Current Medications: Meds: Current Medications Diphenhydramine HCl (Benadryl) 50 mg 1X ONCE PO Last administered on 20:00; Start 11/29/16 at 20:00; Stop 11/29/16 at 20:11; Status DC Olanzapine (Zyprexa) 10 mg 1X ONCE PO Last administered on 11/29/16 20:05; Start 11/29/16 at 20:00; Stop 11/29/16 at 20:12; Status DC Lorazepam (Ativan) 1 mg 1X ONCE PO Last administered on 11/29/16 20:05; Start 11/29/16 at 20:00; Stop 11/29/16 at 20:11; Status DC Diphenhydramine HCl (Benadryl) 25 mg STK-MED ONCE PO ; Start 11/29/16 at 20:02; Stop 11/29/16 at 20:03; Status DC Cephalexin HCl (Keflex) 500 mg TID PO Last administered on 12/01/16 13:48; Start 11/29/16 at 21:00; Stop 12/01/16 at 14:15; Status DC Acetaminophen (Tylenol) 650 mg PRN Q6HRS PRN PO PAIN / TEMP; Start 11/29/16 at 20:45 Multi-Ingredient Ointment (Analgesic [place]) 1 sagar PRN QID PRN TP MUSCLE PAIN; Start 11/29/16 at 20:45 Al Hydroxide/Mg Hydroxide (Mylanta Plus Xs) 15 ml PRN AFTMEALHC PRN PO DYSPEPSIA; Start 11/29/16 at 20:45 Magnesium Hydroxide (Milk Of Magnesia) 2,400 mg PRN QHS PRN PO CONSTIPATION Last administered on 12/03/16 19:22; Start 11/29/16 at 20:45 Memantine (Namenda) 5 mg BID PO Last administered on 12/03/16 19:20; Start at 21:00 Rivastigmine (Exelon) 1 patch DAILY TD Last administered on 12/03/16 09:18; Start 11/30/16 at 09:00 Sertraline HCl (Zoloft) 25 mg DAILY PO Last administered on 12/03/16 09:18; Start 11/30/16 at 09:00 Olanzapine (Zyprexa Zydis) 2.5 mg PRN Q2HR PRN PO Psych Last administered on 21:47; Start 11/29/16 at 20:45 Calcium/Vitamin D (Oscal D 500mg/ 200uts) 1 tab DAILYWBKFT PO Last administered on 12/03/16 09:18; Start 11/30/16 at 08:00 Levothyroxine Sodium (Synthroid) 25 mcg DAILY06 PO Last administered on 05:49; Start 11/30/16 at 06:00 Raloxifene HCl (Evista) 60 mg DAILY PO Last administered on 12/03/16 09:18; Start 11/30/16 at 09:00 Vitamin B Complex 1 cap DAILY PO Last administered on 12/03/16 09:18; Start at 09:00 Iohexol (Omnipaque 300 Mg/ml) 75 ml 1X ONCE IV ; Start 11/29/16 at 22:45; Stop 11/29/16 at 22:46; Status DC Info (Do NOT chart on this entry -- for MONITORING) 1 each PRN DAILY PRN MC SEE COMMENTS; Start 11/29/16 at 22:45; Stop 12/01/16 at 22:44; Status DC Folic Acid (Folic Acid) 0.8 mg DAILY PO Last administered on 12/03/16 09:18; Start 11/30/16 at 09:00 Trazodone HCl (Desyrel) 50 mg PRN QHS PRN PO INSOMNIA, MAY REPEAT X1 Last administered on 2/26/17at 21:08; Start 11/30/16 at 16:45 Amoxicillin (Amoxil) 500 mg [id number] PO Last administered on 12/03/16 19:20; Start 12/01/16 at 21:00; Stop 12/08/16 at 20:59 Mirtazapine (Remeron) 7.5 mg QHS PO Last administered on 12/03/16 19:20; Start 12/01/16 at 21:00 Hydroxyzine HCl (Atarax) 25 mg PRN Q2HR PRN PO ANXIETY / AGITATION Last administered on 12/03/16 09:24; Start 12/01/16 at 18:15 Vitamin D (Vitamin D3) 50,000 unit WEEKLY PO Last administered on 12/03/16 09: 20; Start 12/03/16 at 09:00 Quetiapine Fumarate (SEROquel) 12.5 mg BID PO Last administered on 12/03/16 19: 20; Start 12/02/16 at 21:00 Active Scripts Active Reported Zyprexa Zydis (Olanzapine) 10 Mg Tab.rapdis 10 Mg PO PRN Q4HRS PRN Zyprexa (Olanzapine) 2.5 Mg Tablet 2.5 Mg PO QHS Namenda (Memantine Hcl) 5 Mg Tablet 2.5 Mg PO QHS 4 Days Namenda (Memantine Hcl) 5 Mg Tablet 5 Mg PO DAILY 4 Days Synthroid (Levothyroxine Sodium) 25 Mcg Tablet 25 Mcg PO DAILY06 Zoloft (Sertraline Hcl) 25 Mg Tablet 25 Mg PO DAILY Oyster Shell 500 Mg + Vit D Tb (Calcium Carbonate/Vitamin D3) 1 Each Tablet 1 Tab PO DAILY Evista (Raloxifene Hcl) 60 Mg Tablet 60 Mg PO DAILY Gnp B-50 Complex Tablet (Vitamin B Complex/Folic Acid) 0.4 Mg Tablet.er 0.8 Mg PO DAILY Namenda Xr (Memantine Hcl) 7 Mg Cap.spr.24 7 Mg PO DAILY EXELON 4.6mg/24hr (Rivastigmine) 1 Each Patch.td24 1 Patch TD DAILY Diagnosis: Problems: (1) Mental status change RONYOGESH Dec 04, 2016 08:36
[2016-12-04] MEDS: OLANZAPINE ZYDIS 5 MG TAB.RAPDIS PO PRN ×2 (09:27→14:47)
[2016-12-04] MEDS: VITAMIN B COMPLEX CAPSULE. PO SCH (09:29)
[2016-12-04] MEDS: CALCIUM CARB/VIT D3 500/200 TABLET PO SCH (09:29)
[2016-12-04] MEDS: RALOXIFENE 60 MG TABLET. PO SCH (09:30)
[2016-12-04] MEDS: AMOXICILLIN 500 MG CAPSULE PO SCH ×3 (09:30→19:37)
[2016-12-04] MEDS: FOLIC ACID 0.4 MG TABLET PO SCH (09:30)
[2016-12-04] MEDS: QUEtiapine 25 MG TABLET. PO SCH ×2 (09:31→19:38)
[2016-12-04] MEDS: MEMANTINE 5 MG TABLET. PO SCH ×2 (09:31→19:37)
[2016-12-04] MEDS: SERTRALINE 25 MG TABLET. PO SCH (09:32)
[2016-12-04] MEDS: RIVASTIGMINE 4.6MG PATCH. TD SCH (09:32)
[2016-12-04 15:40] VITALS: BP 148/83
[2016-12-04] MEDS: MIRTAZAPINE 7.5 MG TABLET. PO SCH (19:37)
[2016-12-05] MEDS: LEVOTHYROXINE 25 MCG TABLET. PO SCH (05:44)
[2016-12-05 06:13] VITALS: BP 146/68
[2016-12-05] MEDS: CALCIUM CARB/VIT D3 500/200 TABLET PO SCH (08:21)
[2016-12-05] MEDS: SERTRALINE 25 MG TABLET. PO SCH (08:21)
[2016-12-05] MEDS: RALOXIFENE 60 MG TABLET. PO SCH (08:21)
[2016-12-05] MEDS: VITAMIN B COMPLEX CAPSULE. PO SCH (08:21)
[2016-12-05] MEDS: MEMANTINE 5 MG TABLET. PO SCH ×2 (08:21→19:47)
[2016-12-05] MEDS: QUEtiapine 25 MG TABLET. PO SCH ×4 (08:21→19:47)
[2016-12-05] MEDS: AMOXICILLIN 500 MG CAPSULE PO SCH ×3 (08:21→19:47)
[2016-12-05] MEDS: FOLIC ACID 0.4 MG TABLET PO SCH (08:22)
[2016-12-05] MEDS: RIVASTIGMINE 4.6MG PATCH. TD SCH (08:22)
--- NOTE | 2016-12-05 13:13 | PN ---
DATE: 12/04/2016 PSYCHIATRIC PROGRESS NOTE This is a late entry 12/04/2016, covers elements not covered in my initial note. SUBJECTIVE: The patient was staffed at treatment team meeting morning of 12/04/2016 with entire team and the patient's attended together with her son, . Lengthy discussion about the patient's diagnoses, current medications, discharge, aftercare plans. The patient seen individually evening of 12/04/2016. Appetite about 85% of meals, sleeping 3 to 4 hours. Remains restless, anxious in a Broda chair, trying to get out of it frequently as I met with her. REVIEW OF SYSTEMS: No CV, , pulmonary, eye, ENT system symptoms on review. Reliability poor. MENTAL STATUS EXAM: Oriented to herself. Insight, judgment, recent and remote memory, attention, concentration, fund of knowledge poor, consistent with her diagnoses as mentioned in my initial note. IMPRESSION: Major neurocognitive disorder, Alzheimer, vascular with depression, delusions and behavior disturbance; anxiety disorder, unspecified; impulse control disorder, unspecified. PLAN: The patient is ambulating feet with physical therapy. History reveals she was living at home with her until about 2 weeks back, ambulating on her own, certainly confused. She had large bowel movement on 12/04/2016, restless at times. Increase Seroquel from 12.5 b.i.d. to 12.5 four times a day. Maintain Remeron 7.5 at bedtime, Atarax p.r.n., trazodone p.r.n., Zoloft 25 mg a day, Namenda 5 b.i.d., Exelon patch 4.6 mg a day. Adjust further as clinically indicated. MAN Jaclyn VELASQUEZ MD DR: AMARIJT/mason JOB#: [id number] / [id number]
[2016-12-05 16:08] VITALS: BP 127/91
[2016-12-05] MEDS: MIRTAZAPINE 7.5 MG TABLET. PO SCH (19:47)
--- NOTE | 2016-12-05 20:14 | PDOC ---
Exam Olivier Demential Exam: Olivier Note: Please also refer to the separate dictated note~for this date of service dictated separately.~Patient seen individually. Discussed the patient with Nursing staff reviewed the chart.~Reviewed interim history and current functioning. Reviewed vital signs,~Labs/ Radiology~and current medications noted below. Continue current treatment with the changes noted in the dictated addendum note Assessment: Vital Signs: Vital Signs Date Time Temp Pulse Resp B/P Pulse Ox O2 Delivery O2 Flow Rate FiO2 12/05/16 16:08 98.4 84 16 127/91 98 12/05/16 06:13 Room Air I&O Intake and Output 12/05/16 07:00 Intake Total 840 ml Balance 840 ml Intake Oral 840 ml # Bowel Movements 1 Current Medications: Meds: Current Medications Diphenhydramine HCl (Benadryl) 50 mg 1X ONCE PO Last administered on 20:00; Start 11/29/16 at 20:00; Stop 11/29/16 at 20:11; Status DC Olanzapine (Zyprexa) 10 mg 1X ONCE PO Last administered on 11/29/16 20:05; Start 11/29/16 at 20:00; Stop 11/29/16 at 20:12; Status DC Lorazepam (Ativan) 1 mg 1X ONCE PO Last administered on 11/29/16 20:05; Start 11/29/16 at 20:00; Stop 11/29/16 at 20:11; Status DC Diphenhydramine HCl (Benadryl) 25 mg STK-MED ONCE PO ; Start 11/29/16 at 20:02; Stop 11/29/16 at 20:03; Status DC Cephalexin HCl (Keflex) 500 mg TID PO Last administered on 12/01/16 13:48; Start 11/29/16 at 21:00; Stop 12/01/16 at 14:15; Status DC Acetaminophen (Tylenol) 650 mg PRN Q6HRS PRN PO PAIN / TEMP; Start 11/29/16 at 20:45 Multi-Ingredient Ointment (Analgesic [place]) 1 sagar PRN QID PRN TP MUSCLE PAIN; Start 11/29/16 at 20:45 Al Hydroxide/Mg Hydroxide (Mylanta Plus Xs) 15 ml PRN AFTMEALHC PRN PO DYSPEPSIA; Start 11/29/16 at 20:45 Magnesium Hydroxide (Milk Of Magnesia) 2,400 mg PRN QHS PRN PO CONSTIPATION Last administered on 12/03/16 19:22; Start 11/29/16 at 20:45 Memantine (Namenda) 5 mg BID PO Last administered on 12/05/16 19:47; Start at 21:00 Rivastigmine (Exelon) 1 patch DAILY TD Last administered on 12/05/16 08:22; Start 11/30/16 at 09:00 Sertraline HCl (Zoloft) 25 mg DAILY PO Last administered on 12/05/16 08:21; Start 11/30/16 at 09:00 Olanzapine (Zyprexa Zydis) 2.5 mg PRN Q2HR PRN PO Psych Last administered on 14:47; Start 11/29/16 at 20:45 Calcium/Vitamin D (Oscal D 500mg/ 200uts) 1 tab DAILYWBKFT PO Last administered on 12/05/16 08:21; Start 11/30/16 at 08:00 Levothyroxine Sodium (Synthroid) 25 mcg DAILY06 PO Last administered on 05:44; Start 11/30/16 at 06:00 Raloxifene HCl (Evista) 60 mg DAILY PO Last administered on 12/05/16 08:21; Start 11/30/16 at 09:00 Vitamin B Complex 1 cap DAILY PO Last administered on 12/05/16 08:21; Start at 09:00 Iohexol (Omnipaque 300 Mg/ml) 75 ml 1X ONCE IV ; Start 11/29/16 at 22:45; Stop 11/29/16 at 22:46; Status DC Info (Do NOT chart on this entry -- for MONITORING) 1 each PRN DAILY PRN MC SEE COMMENTS; Start 11/29/16 at 22:45; Stop 12/01/16 at 22:44; Status DC Folic Acid (Folic Acid) 0.8 mg DAILY PO Last administered on 12/05/16 08:22; Start 11/30/16 at 09:00 Trazodone HCl (Desyrel) 50 mg PRN QHS PRN PO INSOMNIA, MAY REPEAT X1 Last administered on 11/30/16 21:08; Start 11/30/16 at 16:45 Amoxicillin (Amoxil) 500 mg [id number] PO Last administered on 12/05/16 19:47; Start 12/01/16 at 21:00; Stop 12/08/16 at 20:59 Mirtazapine (Remeron) 7.5 mg QHS PO Last administered on 12/05/16 19:47; Start 12/01/16 at 21:00 Hydroxyzine HCl (Atarax) 25 mg PRN Q2HR PRN PO ANXIETY / AGITATION Last administered on 12/03/16 09:24; Start 12/01/16 at 18:15 Vitamin D (Vitamin D3) 50,000 unit WEEKLY PO Last administered on 12/03/16 09: 20; Start 12/03/16 at 09:00 Quetiapine Fumarate (SEROquel) 12.5 mg BID PO Last administered on 12/04/16 09: 31; Start 12/02/16 at 21:00; Stop 12/04/16 at 18:23; Status DC Quetiapine Fumarate (SEROquel) 12.5 mg QID PO Last administered on 12/05/16 19: 47; Start 12/04/16 at 21:00 Active Scripts Active Reported Zyprexa Zydis (Olanzapine) 10 Mg Tab.rapdis 10 Mg PO PRN Q4HRS PRN Zyprexa (Olanzapine) 2.5 Mg Tablet 2.5 Mg PO QHS Namenda (Memantine Hcl) 5 Mg Tablet 2.5 Mg PO QHS 4 Days Namenda (Memantine Hcl) 5 Mg Tablet 5 Mg PO DAILY 4 Days Synthroid (Levothyroxine Sodium) 25 Mcg Tablet 25 Mcg PO DAILY06 Zoloft (Sertraline Hcl) 25 Mg Tablet 25 Mg PO DAILY Oyster Shell 500 Mg + Vit D Tb (Calcium Carbonate/Vitamin D3) 1 Each Tablet 1 Tab PO DAILY Evista (Raloxifene Hcl) 60 Mg Tablet 60 Mg PO DAILY Gnp B-50 Complex Tablet (Vitamin B Complex/Folic Acid) 0.4 Mg Tablet.er 0.8 Mg PO DAILY Namenda Xr (Memantine Hcl) 7 Mg Cap.spr.24 7 Mg PO DAILY EXELON 4.6mg/24hr (Rivastigmine) 1 Each Patch.td24 1 Patch TD DAILY Diagnosis: Problems: (1) Mental status change (2) Anxiety disorder (3) Dementia in Alzheimer's disease with depression (4) Dementia, vascular, with delusions (5) Dementia, vascular, with depression (6) Dementia in Alzheimer's disease with delusions (7) Impulse control disorder YOGESH VELASQUEZ MD Dec 05, 2016 20:14
--- NOTE | 2016-12-05 22:38 | PN ---
DATE: 12/03/2016 PSYCHIATRIC PROGRESS NOTE This is a late entry for 12/03/2016, covers elements not covered in my initial note. SUBJECTIVE: Per nursing report, the patient has been anxious, restless, constantly moving as a fall risk. She is in a Broda chair and staff have to be with her almost all the time. She takes her medications crushed. Received Atarax at 9:30 a.m. because of her restlessness with some help. REVIEW OF SYSTEMS: Ambulation impaired. No CV, , pulmonary, eye, ENT system symptoms on review. Reliability poor. MENTAL STATUS EXAM: Oriented to herself. Insight, judgment, recent and remote memory, attention, concentration, fund of knowledge poor, consistent with her diagnosis. LABORATORY DATA: Reviewed. IMPRESSION: Major neurocognitive disorder, Alzheimer, vascular with depression, delusion and behavioral disturbance; anxiety disorder, unspecified; impulse control disorder, unspecified. PLAN: Continue Exelon patch 4.6 mg a day, may increase it to 9.5 mg a day in due course, Namenda 5 mg b.i.d., Zoloft 25 mg a day, Zyprexa p.r.n., trazodone p.r.n., Remeron 7.5 mg at bedtime, Atarax p.r.n., Seroquel 12.5 mg b.i.d., may need to be adjusted gradually as well. Make further adjustments as clinically indicated. YOGESH VELASQUEZ MD DR: AMARJIT/mason JOB#: [id number] / [id number]
[2016-12-06] MEDS: LEVOTHYROXINE 25 MCG TABLET. PO SCH (06:09)
[2016-12-06 06:26] VITALS: BP 115/54
[2016-12-06] MEDS: HYDROXYZINE HCL 25 MG TABLET PO PRN (06:26)
--- NOTE | 2016-12-06 08:07 | PDOC ---
Exam Olivier Demential Exam: Olivier Note: Please also refer to the separate dictated note~for this date of service dictated separately.~Patient seen individually. Discussed the patient with Nursing staff reviewed the chart.~Reviewed interim history and current functioning. Reviewed vital signs,~Labs/ Radiology~and current medications noted below. Continue current treatment with the changes noted in the dictated addendum note Assessment: Vital Signs: Vital Signs Date Time Temp Pulse Resp B/P Pulse Ox O2 Delivery O2 Flow Rate FiO2 12/06/16 06:26 98.3 74 18 115/54 95 12/05/16 06:13 Room Air I&O Intake and Output 12/06/16 07:00 Intake Total 840 ml Balance 840 ml Intake Oral 840 ml Current Medications: Meds: Current Medications Diphenhydramine HCl (Benadryl) 50 mg 1X ONCE PO Last administered on 20:00; Start 11/29/16 at 20:00; Stop 11/29/16 at 20:11; Status DC Olanzapine (Zyprexa) 10 mg 1X ONCE PO Last administered on 11/29/16 20:05; Start 11/29/16 at 20:00; Stop 11/29/16 at 20:12; Status DC Lorazepam (Ativan) 1 mg 1X ONCE PO Last administered on 11/29/16 20:05; Start 11/29/16 at 20:00; Stop 11/29/16 at 20:11; Status DC Diphenhydramine HCl (Benadryl) 25 mg STK-MED ONCE PO ; Start 11/29/16 at 20:02; Stop 11/29/16 at 20:03; Status DC Cephalexin HCl (Keflex) 500 mg TID PO Last administered on 12/01/16 13:48; Start 11/29/16 at 21:00; Stop 12/01/16 at 14:15; Status DC Acetaminophen (Tylenol) 650 mg PRN Q6HRS PRN PO PAIN / TEMP; Start 11/29/16 at 20:45 Multi-Ingredient Ointment (Analgesic [place]) 1 sagar PRN QID PRN TP MUSCLE PAIN; Start 11/29/16 at 20:45 Al Hydroxide/Mg Hydroxide (Mylanta Plus Xs) 15 ml PRN AFTMEALHC PRN PO DYSPEPSIA; Start 11/29/16 at 20:45 Magnesium Hydroxide (Milk Of Magnesia) 2,400 mg PRN QHS PRN PO CONSTIPATION Last administered on 12/03/16 19:22; Start 11/29/16 at 20:45 Memantine (Namenda) 5 mg BID PO Last administered on 12/05/16 19:47; Start at 21:00 Rivastigmine (Exelon) 1 patch DAILY TD Last administered on 12/05/16 08:22; Start 11/30/16 at 09:00 Sertraline HCl (Zoloft) 25 mg DAILY PO Last administered on 12/05/16 08:21; Start 11/30/16 at 09:00 Olanzapine (Zyprexa Zydis) 2.5 mg PRN Q2HR PRN PO Psych Last administered on 14:47; Start 11/29/16 at 20:45 Calcium/Vitamin D (Oscal D 500mg/ 200uts) 1 tab DAILYWBKFT PO Last administered on 12/05/16 08:21; Start 11/30/16 at 08:00 Levothyroxine Sodium (Synthroid) 25 mcg DAILY06 PO Last administered on 06:09; Start 11/30/16 at 06:00 Raloxifene HCl (Evista) 60 mg DAILY PO Last administered on 12/05/16 08:21; Start 11/30/16 at 09:00 Vitamin B Complex 1 cap DAILY PO Last administered on 12/05/16 08:21; Start at 09:00 Iohexol (Omnipaque 300 Mg/ml) 75 ml 1X ONCE IV ; Start 11/29/16 at 22:45; Stop 11/29/16 at 22:46; Status DC Info (Do NOT chart on this entry -- for MONITORING) 1 each PRN DAILY PRN MC SEE COMMENTS; Start 11/29/16 at 22:45; Stop 12/01/16 at 22:44; Status DC Folic Acid (Folic Acid) 0.8 mg DAILY PO Last administered on 12/05/16 08:22; Start 11/30/16 at 09:00 Trazodone HCl (Desyrel) 50 mg PRN QHS PRN PO INSOMNIA, MAY REPEAT X1 Last administered on 11/30/16 21:08; Start 11/30/16 at 16:45 Amoxicillin (Amoxil) 500 mg [id number] PO Last administered on 12/05/16 19:47; Start 12/01/16 at 21:00; Stop 12/08/16 at 20:59 Mirtazapine (Remeron) 7.5 mg QHS PO Last administered on 12/05/16 19:47; Start 12/01/16 at 21:00 Hydroxyzine HCl (Atarax) 25 mg PRN Q2HR PRN PO ANXIETY / AGITATION Last administered on 12/06/16 06:26; Start 12/01/16 at 18:15 Vitamin D (Vitamin D3) 50,000 unit WEEKLY PO Last administered on 12/03/16 09: 20; Start 12/03/16 at 09:00 Quetiapine Fumarate (SEROquel) 12.5 mg BID PO Last administered on 12/04/16 09: 31; Start 12/02/16 at 21:00; Stop 12/04/16 at 18:23; Status DC Quetiapine Fumarate (SEROquel) 12.5 mg QID PO Last administered on 12/05/16 19: 47; Start 12/04/16 at 21:00 Active Scripts Active Reported Zyprexa Zydis (Olanzapine) 10 Mg Tab.rapdis 10 Mg PO PRN Q4HRS PRN Zyprexa (Olanzapine) 2.5 Mg Tablet 2.5 Mg PO QHS Namenda (Memantine Hcl) 5 Mg Tablet 2.5 Mg PO QHS 4 Days Namenda (Memantine Hcl) 5 Mg Tablet 5 Mg PO DAILY 4 Days Synthroid (Levothyroxine Sodium) 25 Mcg Tablet 25 Mcg PO DAILY06 Zoloft (Sertraline Hcl) 25 Mg Tablet 25 Mg PO DAILY Oyster Shell 500 Mg + Vit D Tb (Calcium Carbonate/Vitamin D3) 1 Each Tablet 1 Tab PO DAILY Evista (Raloxifene Hcl) 60 Mg Tablet 60 Mg PO DAILY Gnp B-50 Complex Tablet (Vitamin B Complex/Folic Acid) 0.4 Mg Tablet.er 0.8 Mg PO DAILY Namenda Xr (Memantine Hcl) 7 Mg Cap.spr.24 7 Mg PO DAILY EXELON 4.6mg/24hr (Rivastigmine) 1 Each Patch.td24 1 Patch TD DAILY Diagnosis: Problems: (1) Mental status change (2) Anxiety disorder (3) Dementia in Alzheimer's disease with depression (4) Dementia, vascular, with delusions (5) Dementia, vascular, with depression (6) Dementia in Alzheimer's disease with delusions (7) Impulse control disorder YOGESH VELASQUEZ MD Dec 06, 2016 08:07
[2016-12-06] MEDS: MEMANTINE 5 MG TABLET. PO SCH ×2 (08:20→21:09)
[2016-12-06] MEDS: VITAMIN B COMPLEX CAPSULE. PO SCH (08:20)
[2016-12-06] MEDS: QUEtiapine 25 MG TABLET. PO SCH ×3 (08:20→16:33)
[2016-12-06] MEDS: AMOXICILLIN 500 MG CAPSULE PO SCH ×3 (08:20→21:10)
[2016-12-06] MEDS: SERTRALINE 25 MG TABLET. PO SCH (08:20)
[2016-12-06] MEDS: CALCIUM CARB/VIT D3 500/200 TABLET PO SCH (08:20)
[2016-12-06] MEDS: FOLIC ACID 0.4 MG TABLET PO SCH (08:20)
[2016-12-06] MEDS: RALOXIFENE 60 MG TABLET. PO SCH (08:20)
[2016-12-06] MEDS: RIVASTIGMINE 4.6MG PATCH. TD SCH (08:21)
[2016-12-06 08:27] LABS: HEMATOCRIT 40.2 % (36.0-47.0); HEMOGLOBIN 13.1 g/dL (12.0-15.5); RED BLOOD COUNT 4.35 x10^6/uL (3.50-5.40); RED CELL DISTRIBUTION WIDTH 14.2 % (11.5-14.5); WHITE BLOOD COUNT 7.3 x10^3/uL (4.0-11.0)
[2016-12-06 08:41] LABS: ALBUMIN 3.2 g/dL (3.4-5.0); ALBUMIN/GLOBULIN RATIO 0.9 (1.0-1.7); CALCIUM 8.7 mg/dL (8.5-10.1); CREATININE 0.8 mg/dL (0.6-1.0); GFR 70.1; MAGNESIUM 2.1 mg/dL (1.8-2.4); POTASSIUM 3.8 mmol/L (3.5-5.1); TOTAL BILIRUBIN 0.5 mg/dL (0.2-1.0); TOTAL PROTEIN 6.7 g/dL (6.4-8.2)
[2016-12-06] MEDS: OLANZAPINE ZYDIS 5 MG TAB.RAPDIS PO PRN (13:07)
[2016-12-06 15:42] VITALS: BP 108/65
[2016-12-06] MEDS ORDERED: OLANZAPINE ZYDIS 5 MG TAB.RAPDIS PO SCH ×2 (21:00)
[2016-12-06] MEDS: MIRTAZAPINE 7.5 MG TABLET. PO SCH (21:09)
--- NOTE | 2016-12-06 23:00 | PN ---
DATE: 12/05/2016 This is a late entry for 12/05/2016 and covers elements not covered in my initial note. SUBJECTIVE: Per nursing report, the patient remains restless. She remains in a Broda chair, constantly moving, slept about 5-1/2 hours, remains on Amoxil 500 t.i.d. until 12/08/2016 for her UTI. REVIEW OF SYSTEMS: Ambulation impaired. No CV, , pulmonary, eye, ENT system symptoms on review. Reliability poor. MENTAL STATUS EXAM: Oriented to herself. Insight, judgment, recent and remote memory, attention, concentration, fund of knowledge poor, consistent with her diagnosis mentioned in my initial note. IMPRESSION: Major neurocognitive disorder, Alzheimer, vascular with depression, delusion, behavioral disturbance; anxiety disorder, unspecified; impulse control disorder, unspecified. PLAN: Continue Exelon patch 4.6 mg a day, which we will go ahead and increase to 9.5 mg a day; Namenda 5 b.i.d.; Zoloft 25 mg a day will be increased to 50 mg a day; Zyprexa Zydis p.r.n.; trazodone p.r.n.; Remeron 7.5 at bedtime; Atarax p.r.n.; Seroquel 25 four times a day. Adjust further as clinically indicated. MAN Jaclyn VELASQUEZ MD DR: AMARJIT/mason JOB#: [id number] / [id number]
[2016-12-07] MEDS: LEVOTHYROXINE 25 MCG TABLET. PO SCH (05:24)
[2016-12-07 06:33] VITALS: BP 137/75
[2016-12-07] MEDS: FOLIC ACID 0.4 MG TABLET PO SCH (07:50)
[2016-12-07] MEDS: VITAMIN B COMPLEX CAPSULE. PO SCH (07:50)
[2016-12-07] MEDS: RALOXIFENE 60 MG TABLET. PO SCH (07:51)
[2016-12-07] MEDS: AMOXICILLIN 500 MG CAPSULE PO SCH ×3 (07:53→19:46)
[2016-12-07] MEDS: CALCIUM CARB/VIT D3 500/200 TABLET PO SCH (07:53)
[2016-12-07] MEDS: MEMANTINE 5 MG TABLET. PO SCH ×2 (07:53→19:46)
[2016-12-07] MEDS: SERTRALINE 50 MG TABLET. PO SCH (07:56)
[2016-12-07] MEDS: OLANZAPINE ZYDIS 5 MG TAB.RAPDIS PO SCH ×2 (07:56→13:36)
[2016-12-07] MEDS: RIVASTIGMINE 9.5MG PATCH. TD SCH (07:56)
--- NOTE | 2016-12-07 08:40 | PDOC ---
Exam Olivier Demential Exam: Olivier Note: Please also refer to the separate dictated note~for this date of service dictated separately.~Patient seen individually. Discussed the patient with Nursing staff reviewed the chart.~Reviewed interim history and current functioning. Reviewed vital signs,~Labs/ Radiology~and current medications noted below. Continue current treatment with the changes noted in the dictated addendum note Assessment: Vital Signs: Vital Signs Date Time Temp Pulse Resp B/P Pulse Ox O2 Delivery O2 Flow Rate FiO2 12/07/16 06:33 97.8 80 137/75 97 12/06/16 15:42 20 12/05/16 06:13 Room Air I&O Intake and Output 12/07/16 07:00 Intake Total 840 ml Balance 840 ml Intake Oral 840 ml Current Medications: Meds: Current Medications Diphenhydramine HCl (Benadryl) 50 mg 1X ONCE PO Last administered on 20:00; Start 11/29/16 at 20:00; Stop 11/29/16 at 20:11; Status DC Olanzapine (Zyprexa) 10 mg 1X ONCE PO Last administered on 11/29/16 20:05; Start 11/29/16 at 20:00; Stop 11/29/16 at 20:12; Status DC Lorazepam (Ativan) 1 mg 1X ONCE PO Last administered on 11/29/16 20:05; Start 11/29/16 at 20:00; Stop 11/29/16 at 20:11; Status DC Diphenhydramine HCl (Benadryl) 25 mg STK-MED ONCE PO ; Start 11/29/16 at 20:02; Stop 11/29/16 at 20:03; Status DC Cephalexin HCl (Keflex) 500 mg TID PO Last administered on 12/01/16 13:48; Start 11/29/16 at 21:00; Stop 12/01/16 at 14:15; Status DC Acetaminophen (Tylenol) 650 mg PRN Q6HRS PRN PO PAIN / TEMP; Start 11/29/16 at 20:45 Multi-Ingredient Ointment (Analgesic [place]) 1 sagar PRN QID PRN TP MUSCLE PAIN; Start 11/29/16 at 20:45 Al Hydroxide/Mg Hydroxide (Mylanta Plus Xs) 15 ml PRN AFTMEALHC PRN PO DYSPEPSIA; Start 11/29/16 at 20:45 Magnesium Hydroxide (Milk Of Magnesia) 2,400 mg PRN QHS PRN PO CONSTIPATION Last administered on 12/03/16 19:22; Start 11/29/16 at 20:45 Memantine (Namenda) 5 mg BID PO Last administered on 12/07/16 07:53; Start at 21:00 Rivastigmine (Exelon) 1 patch DAILY TD Last administered on 12/06/16 08:21; Start 11/30/16 at 09:00; Stop 12/06/16 at 12:19; Status DC Sertraline HCl (Zoloft) 25 mg DAILY PO Last administered on 12/06/16 08:20; Start 11/30/16 at 09:00; Stop 12/06/16 at 12:19; Status DC Olanzapine (Zyprexa Zydis) 2.5 mg PRN Q2HR PRN PO Psych Last administered on 13:07; Start 11/29/16 at 20:45 Calcium/Vitamin D (Oscal D 500mg/ 200uts) 1 tab DAILYWBKFT PO Last administered on 12/07/16 07:53; Start 11/30/16 at 08:00 Levothyroxine Sodium (Synthroid) 25 mcg DAILY06 PO Last administered on 05:24; Start 11/30/16 at 06:00 Raloxifene HCl (Evista) 60 mg DAILY PO Last administered on 12/07/16 07:51; Start 11/30/16 at 09:00 Vitamin B Complex 1 cap DAILY PO Last administered on 12/07/16 07:50; Start at 09:00 Iohexol (Omnipaque 300 Mg/ml) 75 ml 1X ONCE IV ; Start 11/29/16 at 22:45; Stop 11/29/16 at 22:46; Status DC Info (Do NOT chart on this entry -- for MONITORING) 1 each PRN DAILY PRN MC SEE COMMENTS; Start 11/29/16 at 22:45; Stop 12/01/16 at 22:44; Status DC Folic Acid (Folic Acid) 0.8 mg DAILY PO Last administered on 12/07/16 07:50; Start 11/30/16 at 09:00 Trazodone HCl (Desyrel) 50 mg PRN QHS PRN PO INSOMNIA, MAY REPEAT X1 Last administered on 11/30/16 21:08; Start 11/30/16 at 16:45 Amoxicillin (Amoxil) 500 mg [id number] PO Last administered on 12/07/16 07:53; Start 12/01/16 at 21:00; Stop 12/08/16 at 20:59 Mirtazapine (Remeron) 7.5 mg QHS PO Last administered on 12/06/16 21:09; Start 12/01/16 at 21:00 Hydroxyzine HCl (Atarax) 25 mg PRN Q2HR PRN PO ANXIETY / AGITATION Last administered on 12/06/16 06:26; Start 12/01/16 at 18:15 Vitamin D (Vitamin D3) 50,000 unit WEEKLY PO Last administered on 12/03/16 09: 20; Start 12/03/16 at 09:00 Quetiapine Fumarate (SEROquel) 12.5 mg BID PO Last administered on 12/04/16 09: 31; Start 12/02/16 at 21:00; Stop 12/04/16 at 18:23; Status DC Quetiapine Fumarate (SEROquel) 12.5 mg QID PO Last administered on 12/06/16 16: 33; Start 12/04/16 at 21:00; Stop 12/06/16 at 17:46; Status DC Sertraline HCl (Zoloft) 50 mg DAILY PO Last administered on 12/07/16 07:56; Start 12/07/16 at 09:00 Rivastigmine (Exelon) 1 patch DAILY TD Last administered on 12/07/16 07:56; Start 12/07/16 at 09:00 Olanzapine (Zyprexa Zydis) 2.5 mg BID PO ; Start 12/06/16 at 21:00; Stop 12/06/16 at 21:00; Status DC Olanzapine (Zyprexa Zydis) 2.5 mg BID92 PO ; Start 12/06/16 at 21:00; Status Cancel Olanzapine (Zyprexa Zydis) 2.5 mg [id number] PO Last administered on 3/5/17at 07:56 ; Start 12/07/16 at 09:00 Active Scripts Active Reported Zyprexa Zydis (Olanzapine) 10 Mg Tab.rapdis 10 Mg PO PRN Q4HRS PRN Zyprexa (Olanzapine) 2.5 Mg Tablet 2.5 Mg PO QHS Namenda (Memantine Hcl) 5 Mg Tablet 2.5 Mg PO QHS 4 Days Namenda (Memantine Hcl) 5 Mg Tablet 5 Mg PO DAILY 4 Days Synthroid (Levothyroxine Sodium) 25 Mcg Tablet 25 Mcg PO DAILY06 Zoloft (Sertraline Hcl) 25 Mg Tablet 25 Mg PO DAILY Oyster Shell 500 Mg + Vit D Tb (Calcium Carbonate/Vitamin D3) 1 Each Tablet 1 Tab PO DAILY Evista (Raloxifene Hcl) 60 Mg Tablet 60 Mg PO DAILY Gnp B-50 Complex Tablet (Vitamin B Complex/Folic Acid) 0.4 Mg Tablet.er 0.8 Mg PO DAILY Namenda Xr (Memantine Hcl) 7 Mg Cap.spr.24 7 Mg PO DAILY EXELON 4.6mg/24hr (Rivastigmine) 1 Each Patch.td24 1 Patch TD DAILY Diagnosis: Problems: (1) Mental status change (2) Anxiety disorder (3) Dementia in Alzheimer's disease with depression (4) Dementia, vascular, with delusions (5) Dementia, vascular, with depression (6) Dementia in Alzheimer's disease with delusions (7) Impulse control disorder YOGESH VELASQUEZ MD Dec 07, 2016 08:40
[2016-12-07 15:51] VITALS: BP 136/82
[2016-12-07] MEDS: MIRTAZAPINE 7.5 MG TABLET. PO SCH (19:46)
[2016-12-07] MEDS: busPIRone 5 MG TABLET. PO SCH (20:08)
[2016-12-07] MEDS: QUEtiapine 25 MG TABLET. PO SCH (20:08)
[2016-12-08] MEDS: LEVOTHYROXINE 25 MCG TABLET. PO SCH (06:03)
[2016-12-08 06:35] VITALS: BP 113/62
[2016-12-08] MEDS: RIVASTIGMINE 9.5MG PATCH. TD SCH (08:17)
[2016-12-08] MEDS: AMOXICILLIN 500 MG CAPSULE PO SCH ×2 (08:17→12:33)
[2016-12-08] MEDS: FOLIC ACID 0.4 MG TABLET PO SCH (08:18)
[2016-12-08] MEDS: VITAMIN B COMPLEX CAPSULE. PO SCH (08:18)
[2016-12-08] MEDS: busPIRone 5 MG TABLET. PO SCH ×2 (08:18→20:13)
[2016-12-08] MEDS: CALCIUM CARB/VIT D3 500/200 TABLET PO SCH (08:18)
[2016-12-08] MEDS: QUEtiapine 25 MG TABLET. PO SCH ×4 (08:19→20:13)
[2016-12-08] MEDS: MEMANTINE 5 MG TABLET. PO SCH ×2 (08:19→20:13)
[2016-12-08] MEDS: SERTRALINE 50 MG TABLET. PO SCH (08:19)
[2016-12-08] MEDS: RALOXIFENE 60 MG TABLET. PO SCH (09:25)
[2016-12-08] MEDS: OLANZAPINE ZYDIS 5 MG TAB.RAPDIS PO PRN (13:56)
[2016-12-08 16:26] VITALS: BP 105/66
--- NOTE | 2016-12-08 20:12 | PDOC ---
Exam Olivier Demential Exam: Olivier Note: Please also refer to the separate dictated note~for this date of service dictated separately.~Patient seen individually. Discussed the patient with Nursing staff reviewed the chart.~Reviewed interim history and current functioning. Reviewed vital signs,~Labs/ Radiology~and current medications noted below. Continue current treatment with the changes noted in the dictated addendum note Assessment: Vital Signs: Vital Signs Date Time Temp Pulse Resp B/P Pulse Ox O2 Delivery O2 Flow Rate FiO2 12/08/16 16:26 98.1 89 20 105/66 95 Room Air I&O Intake and Output 12/08/16 07:00 Intake Total 1080 ml Balance 1080 ml Intake Oral 1080 ml # Bowel Movements 3 Current Medications: Meds: Current Medications Diphenhydramine HCl (Benadryl) 50 mg 1X ONCE PO Last administered on 20:00; Start 11/29/16 at 20:00; Stop 11/29/16 at 20:11; Status DC Olanzapine (Zyprexa) 10 mg 1X ONCE PO Last administered on 11/29/16 20:05; Start 11/29/16 at 20:00; Stop 11/29/16 at 20:12; Status DC Lorazepam (Ativan) 1 mg 1X ONCE PO Last administered on 11/29/16 20:05; Start 11/29/16 at 20:00; Stop 11/29/16 at 20:11; Status DC Diphenhydramine HCl (Benadryl) 25 mg STK-MED ONCE PO ; Start 11/29/16 at 20:02; Stop 11/29/16 at 20:03; Status DC Cephalexin HCl (Keflex) 500 mg TID PO Last administered on 12/01/16 13:48; Start 11/29/16 at 21:00; Stop 12/01/16 at 14:15; Status DC Acetaminophen (Tylenol) 650 mg PRN Q6HRS PRN PO PAIN / TEMP; Start 11/29/16 at 20:45 Multi-Ingredient Ointment (Analgesic [place]) 1 sagar PRN QID PRN TP MUSCLE PAIN; Start 11/29/16 at 20:45 Al Hydroxide/Mg Hydroxide (Mylanta Plus Xs) 15 ml PRN AFTMEALHC PRN PO DYSPEPSIA; Start 11/29/16 at 20:45 Magnesium Hydroxide (Milk Of Magnesia) 2,400 mg PRN QHS PRN PO CONSTIPATION Last administered on 12/03/16 19:22; Start 11/29/16 at 20:45 Memantine (Namenda) 5 mg BID PO Last administered on 12/08/16 08:19; Start at 21:00 Rivastigmine (Exelon) 1 patch DAILY TD Last administered on 12/06/16 08:21; Start 11/30/16 at 09:00; Stop 12/06/16 at 12:19; Status DC Sertraline HCl (Zoloft) 25 mg DAILY PO Last administered on 12/06/16 08:20; Start 11/30/16 at 09:00; Stop 12/06/16 at 12:19; Status DC Olanzapine (Zyprexa Zydis) 2.5 mg PRN Q2HR PRN PO Psych Last administered on 13:56; Start 11/29/16 at 20:45 Calcium/Vitamin D (Oscal D 500mg/ 200uts) 1 tab DAILYWBKFT PO Last administered on 12/08/16 08:18; Start 11/30/16 at 08:00 Levothyroxine Sodium (Synthroid) 25 mcg DAILY06 PO Last administered on 06:03; Start 11/30/16 at 06:00 Raloxifene HCl (Evista) 60 mg DAILY PO Last administered on 12/08/16 09:25; Start 11/30/16 at 09:00 Vitamin B Complex 1 cap DAILY PO Last administered on 12/08/16 08:18; Start at 09:00 Iohexol (Omnipaque 300 Mg/ml) 75 ml 1X ONCE IV ; Start 11/29/16 at 22:45; Stop 11/29/16 at 22:46; Status DC Info (Do NOT chart on this entry -- for MONITORING) 1 each PRN DAILY PRN MC SEE COMMENTS; Start 11/29/16 at 22:45; Stop 12/01/16 at 22:44; Status DC Folic Acid (Folic Acid) 0.8 mg DAILY PO Last administered on 12/08/16 08:18; Start 11/30/16 at 09:00 Trazodone HCl (Desyrel) 50 mg PRN QHS PRN PO INSOMNIA, MAY REPEAT X1 Last administered on 11/30/16 21:08; Start 11/30/16 at 16:45 Amoxicillin (Amoxil) 500 mg [id number] PO Last administered on 12/08/16 12:33; Start 12/01/16 at 21:00; Stop 12/08/16 at 20:59 Mirtazapine (Remeron) 7.5 mg QHS PO Last administered on 12/07/16 19:46; Start 12/01/16 at 21:00 Hydroxyzine HCl (Atarax) 25 mg PRN Q2HR PRN PO ANXIETY / AGITATION Last administered on 12/06/16 06:26; Start 12/01/16 at 18:15 Vitamin D (Vitamin D3) 50,000 unit WEEKLY PO Last administered on 12/03/16 09: 20; Start 12/03/16 at 09:00 Quetiapine Fumarate (SEROquel) 12.5 mg BID PO Last administered on 12/04/16 09: 31; Start 12/02/16 at 21:00; Stop 12/04/16 at 18:23; Status DC Quetiapine Fumarate (SEROquel) 12.5 mg QID PO Last administered on 12/06/16 16: 33; Start 12/04/16 at 21:00; Stop 12/06/16 at 17:46; Status DC Sertraline HCl (Zoloft) 50 mg DAILY PO Last administered on 12/08/16 08:19; Start 12/07/16 at 09:00 Rivastigmine (Exelon) 1 patch DAILY TD Last administered on 12/08/16 08:17; Start 12/07/16 at 09:00 Olanzapine (Zyprexa Zydis) 2.5 mg BID PO ; Start 12/06/16 at 21:00; Stop 12/06/16 at 21:00; Status DC Olanzapine (Zyprexa Zydis) 2.5 mg BID92 PO ; Start 12/06/16 at 21:00; Status Cancel Olanzapine (Zyprexa Zydis) 2.5 mg BID92 PO Last administered on 12/07/16 13:36 ; Start 12/07/16 at 09:00; Stop 12/07/16 at 18:46; Status DC Quetiapine Fumarate (SEROquel) 25 mg QID PO Last administered on 12/08/16 17:00 ; Start 12/07/16 at 21:00 Buspirone HCl (Buspar) 5 mg BID PO Last administered on 12/08/16 08:18; Start 12/07/16 at 21:00 Active Scripts Active Reported Zyprexa Zydis (Olanzapine) 10 Mg Tab.rapdis 10 Mg PO PRN Q4HRS PRN Zyprexa (Olanzapine) 2.5 Mg Tablet 2.5 Mg PO QHS Namenda (Memantine Hcl) 5 Mg Tablet 2.5 Mg PO QHS 4 Days Namenda (Memantine Hcl) 5 Mg Tablet 5 Mg PO DAILY 4 Days Synthroid (Levothyroxine Sodium) 25 Mcg Tablet 25 Mcg PO DAILY06 Zoloft (Sertraline Hcl) 25 Mg Tablet 25 Mg PO DAILY Oyster Shell 500 Mg + Vit D Tb (Calcium Carbonate/Vitamin D3) 1 Each Tablet 1 Tab PO DAILY Evista (Raloxifene Hcl) 60 Mg Tablet 60 Mg PO DAILY Gnp B-50 Complex Tablet (Vitamin B Complex/Folic Acid) 0.4 Mg Tablet.er 0.8 Mg PO DAILY Namenda Xr (Memantine Hcl) 7 Mg Cap.spr.24 7 Mg PO DAILY EXELON 4.6mg/24hr (Rivastigmine) 1 Each Patch.td24 1 Patch TD DAILY Diagnosis: Problems: (1) Mental status change (2) Anxiety disorder (3) Dementia in Alzheimer's disease with depression (4) Dementia, vascular, with delusions (5) Dementia, vascular, with depression (6) Dementia in Alzheimer's disease with delusions (7) Impulse control disorder YOGESH VELASQUEZ MD Dec 08, 2016 20:12
[2016-12-08] MEDS: MIRTAZAPINE 7.5 MG TABLET. PO SCH (20:13)
[2016-12-09] MEDS: LEVOTHYROXINE 25 MCG TABLET. PO SCH (05:08)
[2016-12-09 06:01] VITALS: BP 135/77
[2016-12-09] MEDS: VITAMIN B COMPLEX CAPSULE. PO SCH (08:33)
[2016-12-09] MEDS: RIVASTIGMINE 9.5MG PATCH. TD SCH (08:33)
[2016-12-09] MEDS: CALCIUM CARB/VIT D3 500/200 TABLET PO SCH (08:34)
[2016-12-09] MEDS: SERTRALINE 50 MG TABLET. PO SCH (08:34)
[2016-12-09] MEDS: RALOXIFENE 60 MG TABLET. PO SCH (08:34)
[2016-12-09] MEDS: FOLIC ACID 0.4 MG TABLET PO SCH (08:34)
[2016-12-09] MEDS: busPIRone 5 MG TABLET. PO SCH ×2 (08:35→20:07)
[2016-12-09] MEDS: MEMANTINE 5 MG TABLET. PO SCH ×2 (08:35→20:07)
[2016-12-09] MEDS: QUEtiapine 25 MG TABLET. PO SCH ×4 (08:35→20:07)
--- NOTE | 2016-12-09 09:32 | PN ---
DATE: 12/06/2016 SUBJECTIVE: This is a late entry 12/06/2016 covers elements not covered in my initial note. Per nursing report, the patient has been restless. Received Atarax at 6:30 with no effect, but Zyprexa seemed to help better. Staff do not feel the Seroquel is helping. REVIEW OF SYSTEMS: No CV, , pulmonary, eye, or ENT system symptoms on review. Reliability poor. Ambulation impaired. MENTAL STATUS EXAM: Oriented to herself. Insight, judgment, recent and remote memory, attention, concentration, fund of knowledge poor, consistent with her diagnosis mentioned in my initial note. IMPRESSION: Major neurocognitive disorder, Alzheimer, vascular with depression, delusions; anxiety disorder, unspecified; and impulse control disorder, unspecified. PLAN: Change Seroquel to Zyprexa 2.5 mg scheduled 9 a.m. and 2 p.m. as nursing staff feel he has done better on Zyprexa as compared to Seroquel. Continue Exelon patch, Namenda, Zoloft, Zyprexa p.r.n., and Remeron at current dosage. Seroquel was discontinued. Adjust further as clinically indicated. YOGESH VELASQUEZ MD DR: AMARJIT/mason JOB#: [id number] / [id number]
--- NOTE | 2016-12-09 09:47 | PN ---
DATE: 12/07/2016 PSYCHIATRIC PROGRESS NOTE This late entry for 12/07/2016 covers the elements not covered in my initial note. SUBJECTIVE: Per nursing report, the patient has had intermittent hallucinations, restless at times. REVIEW OF SYSTEMS: No CV, , pulmonary, eye, ENT system symptoms on review. Reliability is poor. MENTAL STATUS EXAM: Insight, judgment, recent and remote memory, attention, concentration, fund of knowledge poor, consistent with her diagnosis. LABORATORY DATA: Reviewed. IMPRESSION: Major neurocognitive disorder, Alzheimer, vascular with depression, delusion, behavioral disturbance; anxiety disorder, unspecified; impulse control disorder, unspecified. PLAN: Treat on Amoxil for UTI until 12/08/2016. Change Zyprexa to p.r.n., start Seroquel 25 mg 4 times a day in place of Zyprexa 2.5 b.i.d. Start BuSpar 5 b.i.d. Adjust further as clinically indicated. YOGESH VELASQUEZ MD DR: AMARJIT/mason JOB#: [id number] / [id number]
[2016-12-09] MEDS: OLANZAPINE ZYDIS 5 MG TAB.RAPDIS PO PRN (15:36)
[2016-12-09 15:52] VITALS: BP 129/67
[2016-12-09] MEDS: MIRTAZAPINE 7.5 MG TABLET. PO SCH (20:07)
--- NOTE | 2016-12-09 20:11 | PDOC ---
Exam Olivier Demential Exam: Olivier Note: Please also refer to the separate dictated note~for this date of service dictated separately.~Patient seen individually. Discussed the patient with Nursing staff reviewed the chart.~Reviewed interim history and current functioning. Reviewed vital signs,~Labs/ Radiology~and current medications noted below. Continue current treatment with the changes noted in the dictated addendum note Assessment: Vital Signs: Vital Signs Date Time Temp Pulse Resp B/P Pulse Ox O2 Delivery O2 Flow Rate FiO2 12/09/16 15:52 98.6 84 20 129/67 95 12/08/16 16:26 Room Air I&O Intake and Output 12/09/16 07:00 Intake Total 1315 ml Balance 1315 ml Intake Oral 1315 ml Current Medications: Meds: Current Medications Diphenhydramine HCl (Benadryl) 50 mg 1X ONCE PO Last administered on 20:00; Start 11/29/16 at 20:00; Stop 11/29/16 at 20:11; Status DC Olanzapine (Zyprexa) 10 mg 1X ONCE PO Last administered on 11/29/16 20:05; Start 11/29/16 at 20:00; Stop 11/29/16 at 20:12; Status DC Lorazepam (Ativan) 1 mg 1X ONCE PO Last administered on 11/29/16 20:05; Start 11/29/16 at 20:00; Stop 11/29/16 at 20:11; Status DC Diphenhydramine HCl (Benadryl) 25 mg STK-MED ONCE PO ; Start 11/29/16 at 20:02; Stop 11/29/16 at 20:03; Status DC Cephalexin HCl (Keflex) 500 mg TID PO Last administered on 12/01/16 13:48; Start 11/29/16 at 21:00; Stop 12/01/16 at 14:15; Status DC Acetaminophen (Tylenol) 650 mg PRN Q6HRS PRN PO PAIN / TEMP; Start 11/29/16 at 20:45 Multi-Ingredient Ointment (Analgesic [place]) 1 sagar PRN QID PRN TP MUSCLE PAIN; Start 11/29/16 at 20:45 Al Hydroxide/Mg Hydroxide (Mylanta Plus Xs) 15 ml PRN AFTMEALHC PRN PO DYSPEPSIA; Start 11/29/16 at 20:45 Magnesium Hydroxide (Milk Of Magnesia) 2,400 mg PRN QHS PRN PO CONSTIPATION Last administered on 12/03/16 19:22; Start 11/29/16 at 20:45 Memantine (Namenda) 5 mg BID PO Last administered on 12/09/16 20:07; Start at 21:00 Rivastigmine (Exelon) 1 patch DAILY TD Last administered on 12/06/16 08:21; Start 11/30/16 at 09:00; Stop 12/06/16 at 12:19; Status DC Sertraline HCl (Zoloft) 25 mg DAILY PO Last administered on 12/06/16 08:20; Start 11/30/16 at 09:00; Stop 12/06/16 at 12:19; Status DC Olanzapine (Zyprexa Zydis) 2.5 mg PRN Q2HR PRN PO Psych Last administered on 15:36; Start 11/29/16 at 20:45 Calcium/Vitamin D (Oscal D 500mg/ 200uts) 1 tab DAILYWBKFT PO Last administered on 12/09/16 08:34; Start 11/30/16 at 08:00 Levothyroxine Sodium (Synthroid) 25 mcg DAILY06 PO Last administered on 05:08; Start 11/30/16 at 06:00 Raloxifene HCl (Evista) 60 mg DAILY PO Last administered on 12/09/16 08:34; Start 11/30/16 at 09:00 Vitamin B Complex 1 cap DAILY PO Last administered on 12/09/16 08:33; Start at 09:00 Iohexol (Omnipaque 300 Mg/ml) 75 ml 1X ONCE IV ; Start 11/29/16 at 22:45; Stop 11/29/16 at 22:46; Status DC Info (Do NOT chart on this entry -- for MONITORING) 1 each PRN DAILY PRN MC SEE COMMENTS; Start 11/29/16 at 22:45; Stop 12/01/16 at 22:44; Status DC Folic Acid (Folic Acid) 0.8 mg DAILY PO Last administered on 12/09/16 08:34; Start 11/30/16 at 09:00 Trazodone HCl (Desyrel) 50 mg PRN QHS PRN PO INSOMNIA, MAY REPEAT X1 Last administered on 11/30/16 21:08; Start 11/30/16 at 16:45 Amoxicillin (Amoxil) 500 mg [id number] PO Last administered on 12/08/16 12:33; Start 12/01/16 at 21:00; Stop 12/08/16 at 20:59; Status DC Mirtazapine (Remeron) 7.5 mg QHS PO Last administered on 12/09/16 20:07; Start 12/01/16 at 21:00 Hydroxyzine HCl (Atarax) 25 mg PRN Q2HR PRN PO ANXIETY / AGITATION Last administered on 12/06/16 06:26; Start 12/01/16 at 18:15 Vitamin D (Vitamin D3) 50,000 unit WEEKLY PO Last administered on 12/03/16 09: 20; Start 12/03/16 at 09:00 Quetiapine Fumarate (SEROquel) 12.5 mg BID PO Last administered on 12/04/16 09: 31; Start 12/02/16 at 21:00; Stop 12/04/16 at 18:23; Status DC Quetiapine Fumarate (SEROquel) 12.5 mg QID PO Last administered on 12/06/16 16: 33; Start 12/04/16 at 21:00; Stop 12/06/16 at 17:46; Status DC Sertraline HCl (Zoloft) 50 mg DAILY PO Last administered on 12/09/16 08:34; Start 12/07/16 at 09:00 Rivastigmine (Exelon) 1 patch DAILY TD Last administered on 12/09/16 08:33; Start 12/07/16 at 09:00 Olanzapine (Zyprexa Zydis) 2.5 mg BID PO ; Start 12/06/16 at 21:00; Stop 12/06/16 at 21:00; Status DC Olanzapine (Zyprexa Zydis) 2.5 mg BID92 PO ; Start 12/06/16 at 21:00; Status Cancel Olanzapine (Zyprexa Zydis) 2.5 mg BID92 PO Last administered on 12/07/16 13:36 ; Start 12/07/16 at 09:00; Stop 12/07/16 at 18:46; Status DC Quetiapine Fumarate (SEROquel) 25 mg QID PO Last administered on 12/09/16 20:07 ; Start 12/07/16 at 21:00 Buspirone HCl (Buspar) 5 mg BID PO Last administered on 12/09/16 08:35; Start 12/07/16 at 21:00; Stop 12/09/16 at 18:31; Status DC Buspirone HCl (Buspar) 5 mg TID PO Last administered on 12/09/16 20:07; Start 12/09/16 at 21:00 Active Scripts Active Reported Zyprexa Zydis (Olanzapine) 10 Mg Tab.rapdis 10 Mg PO PRN Q4HRS PRN Zyprexa (Olanzapine) 2.5 Mg Tablet 2.5 Mg PO QHS Namenda (Memantine Hcl) 5 Mg Tablet 2.5 Mg PO QHS 4 Days Namenda (Memantine Hcl) 5 Mg Tablet 5 Mg PO DAILY 4 Days Synthroid (Levothyroxine Sodium) 25 Mcg Tablet 25 Mcg PO DAILY06 Zoloft (Sertraline Hcl) 25 Mg Tablet 25 Mg PO DAILY Oyster Shell 500 Mg + Vit D Tb (Calcium Carbonate/Vitamin D3) 1 Each Tablet 1 Tab PO DAILY Evista (Raloxifene Hcl) 60 Mg Tablet 60 Mg PO DAILY Gnp B-50 Complex Tablet (Vitamin B Complex/Folic Acid) 0.4 Mg Tablet.er 0.8 Mg PO DAILY Namenda Xr (Memantine Hcl) 7 Mg Cap.spr.24 7 Mg PO DAILY EXELON 4.6mg/24hr (Rivastigmine) 1 Each Patch.td24 1 Patch TD DAILY Diagnosis: Problems: (1) Mental status change (2) Anxiety disorder (3) Dementia in Alzheimer's disease with depression (4) Dementia, vascular, with delusions (5) Dementia, vascular, with depression (6) Dementia in Alzheimer's disease with delusions (7) Impulse control disorder YOGESH VELASQUEZ MD Dec 09, 2016 20:11
[2016-12-10] MEDS: LEVOTHYROXINE 25 MCG TABLET. PO SCH (06:02)
[2016-12-10 06:15] VITALS: BP 145/97
--- NOTE | 2016-12-10 07:34 | PN ---
DATE: 12/08/2016 PSYCHIATRIC PROGRESS NOTE This is a late entry 12/08/2016, covers elements not covered in my initial note. SUBJECTIVE: Per nursing report, the patient has been extremely restless, anxious, compliant with the medications, does let the staff assess her, which in itself is an improvement. REVIEW OF SYSTEMS: She is unable to ambulate on her own. No CV, , pulmonary, eye, ENT system symptoms on review. MENTAL STATUS EXAM: Oriented to herself. Insight, judgment, recent and remote memory, attention, concentration, fund of knowledge poor, consistent with her diagnosis mentioned in my initial note. IMPRESSION: Major neurocognitive disorder; Alzheimer, vascular with depression; delusions; behavioral disturbance; urinary tract infection, treated. Rest diagnosis unchanged. 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 Continue Exelon patch 9.5 mg a day, Namenda 5 mg b.i.d., Zoloft 50 mg a day, Zyprexa p.r.n., trazodone p.r.n., Remeron 7.5 mg at bedtime, Atarax p.r.n., BuSpar 5 mg b.i.d., Seroquel 25 mg four times a day. Adjust further as clinically indicated. MAN Jaclyn VELASQUEZ MD DR: AMARJIT/mason JOB#: [id number] / [id number]
--- NOTE | 2016-12-10 08:04 | PDOC ---
Exam Olivier Demential Exam: Olivier Note: Please also refer to the separate dictated note~for this date of service dictated separately.~Patient seen individually. Discussed the patient with Nursing staff reviewed the chart.~Reviewed interim history and current functioning. Reviewed vital signs,~Labs/ Radiology~and current medications noted below. Continue current treatment with the changes noted in the dictated addendum note Assessment: Vital Signs: Vital Signs Date Time Temp Pulse Resp B/P Pulse Ox O2 Delivery O2 Flow Rate FiO2 12/10/16 06:15 97.2 72 18 145/97 96 12/08/16 16:26 Room Air I&O Intake and Output 12/10/16 07:00 Intake Total 720 ml Balance 720 ml Intake Oral 720 ml Current Medications: Meds: Current Medications Diphenhydramine HCl (Benadryl) 50 mg 1X ONCE PO Last administered on 20:00; Start 11/29/16 at 20:00; Stop 11/29/16 at 20:11; Status DC Olanzapine (Zyprexa) 10 mg 1X ONCE PO Last administered on 11/29/16 20:05; Start 11/29/16 at 20:00; Stop 11/29/16 at 20:12; Status DC Lorazepam (Ativan) 1 mg 1X ONCE PO Last administered on 11/29/16 20:05; Start 11/29/16 at 20:00; Stop 11/29/16 at 20:11; Status DC Diphenhydramine HCl (Benadryl) 25 mg STK-MED ONCE PO ; Start 11/29/16 at 20:02; Stop 11/29/16 at 20:03; Status DC Cephalexin HCl (Keflex) 500 mg TID PO Last administered on 12/01/16 13:48; Start 11/29/16 at 21:00; Stop 12/01/16 at 14:15; Status DC Acetaminophen (Tylenol) 650 mg PRN Q6HRS PRN PO PAIN / TEMP; Start 11/29/16 at 20:45 Multi-Ingredient Ointment (Analgesic [place]) 1 sagar PRN QID PRN TP MUSCLE PAIN; Start 11/29/16 at 20:45 Al Hydroxide/Mg Hydroxide (Mylanta Plus Xs) 15 ml PRN AFTMEALHC PRN PO DYSPEPSIA; Start 11/29/16 at 20:45 Magnesium Hydroxide (Milk Of Magnesia) 2,400 mg PRN QHS PRN PO CONSTIPATION Last administered on 12/03/16 19:22; Start 11/29/16 at 20:45 Memantine (Namenda) 5 mg BID PO Last administered on 12/09/16 20:07; Start at 21:00 Rivastigmine (Exelon) 1 patch DAILY TD Last administered on 12/06/16 08:21; Start 11/30/16 at 09:00; Stop 12/06/16 at 12:19; Status DC Sertraline HCl (Zoloft) 25 mg DAILY PO Last administered on 12/06/16 08:20; Start 11/30/16 at 09:00; Stop 12/06/16 at 12:19; Status DC Olanzapine (Zyprexa Zydis) 2.5 mg PRN Q2HR PRN PO Psych Last administered on 15:36; Start 11/29/16 at 20:45 Calcium/Vitamin D (Oscal D 500mg/ 200uts) 1 tab DAILYWBKFT PO Last administered on 12/09/16 08:34; Start 11/30/16 at 08:00 Levothyroxine Sodium (Synthroid) 25 mcg DAILY06 PO Last administered on 06:02; Start 11/30/16 at 06:00 Raloxifene HCl (Evista) 60 mg DAILY PO Last administered on 12/09/16 08:34; Start 11/30/16 at 09:00 Vitamin B Complex 1 cap DAILY PO Last administered on 12/09/16 08:33; Start at 09:00 Iohexol (Omnipaque 300 Mg/ml) 75 ml 1X ONCE IV ; Start 11/29/16 at 22:45; Stop 11/29/16 at 22:46; Status DC Info (Do NOT chart on this entry -- for MONITORING) 1 each PRN DAILY PRN MC SEE COMMENTS; Start 11/29/16 at 22:45; Stop 12/01/16 at 22:44; Status DC Folic Acid (Folic Acid) 0.8 mg DAILY PO Last administered on 12/09/16 08:34; Start 11/30/16 at 09:00 Trazodone HCl (Desyrel) 50 mg PRN QHS PRN PO INSOMNIA, MAY REPEAT X1 Last administered on 11/30/16 21:08; Start 11/30/16 at 16:45 Amoxicillin (Amoxil) 500 mg [id number] PO Last administered on 12/08/16 12:33; Start 12/01/16 at 21:00; Stop 12/08/16 at 20:59; Status DC Mirtazapine (Remeron) 7.5 mg QHS PO Last administered on 12/09/16 20:07; Start 12/01/16 at 21:00 Hydroxyzine HCl (Atarax) 25 mg PRN Q2HR PRN PO ANXIETY / AGITATION Last administered on 12/06/16 06:26; Start 12/01/16 at 18:15 Vitamin D (Vitamin D3) 50,000 unit WEEKLY PO Last administered on 12/03/16 09: 20; Start 12/03/16 at 09:00 Quetiapine Fumarate (SEROquel) 12.5 mg BID PO Last administered on 12/04/16 09: 31; Start 12/02/16 at 21:00; Stop 12/04/16 at 18:23; Status DC Quetiapine Fumarate (SEROquel) 12.5 mg QID PO Last administered on 12/06/16 16: 33; Start 12/04/16 at 21:00; Stop 12/06/16 at 17:46; Status DC Sertraline HCl (Zoloft) 50 mg DAILY PO Last administered on 12/09/16 08:34; Start 12/07/16 at 09:00 Rivastigmine (Exelon) 1 patch DAILY TD Last administered on 12/09/16 08:33; Start 12/07/16 at 09:00 Olanzapine (Zyprexa Zydis) 2.5 mg BID PO ; Start 12/06/16 at 21:00; Stop 12/06/16 at 21:00; Status DC Olanzapine (Zyprexa Zydis) 2.5 mg BID92 PO ; Start 12/06/16 at 21:00; Status Cancel Olanzapine (Zyprexa Zydis) 2.5 mg BID92 PO Last administered on 12/07/16 13:36 ; Start 12/07/16 at 09:00; Stop 12/07/16 at 18:46; Status DC Quetiapine Fumarate (SEROquel) 25 mg QID PO Last administered on 12/09/16 20:07 ; Start 12/07/16 at 21:00 Buspirone HCl (Buspar) 5 mg BID PO Last administered on 12/09/16 08:35; Start 12/07/16 at 21:00; Stop 12/09/16 at 18:31; Status DC Buspirone HCl (Buspar) 5 mg TID PO Last administered on 12/09/16 20:07; Start 12/09/16 at 21:00 Active Scripts Active Reported Zyprexa Zydis (Olanzapine) 10 Mg Tab.rapdis 10 Mg PO PRN Q4HRS PRN Zyprexa (Olanzapine) 2.5 Mg Tablet 2.5 Mg PO QHS Namenda (Memantine Hcl) 5 Mg Tablet 2.5 Mg PO QHS 4 Days Namenda (Memantine Hcl) 5 Mg Tablet 5 Mg PO DAILY 4 Days Synthroid (Levothyroxine Sodium) 25 Mcg Tablet 25 Mcg PO DAILY06 Zoloft (Sertraline Hcl) 25 Mg Tablet 25 Mg PO DAILY Oyster Shell 500 Mg + Vit D Tb (Calcium Carbonate/Vitamin D3) 1 Each Tablet 1 Tab PO DAILY Evista (Raloxifene Hcl) 60 Mg Tablet 60 Mg PO DAILY Gnp B-50 Complex Tablet (Vitamin B Complex/Folic Acid) 0.4 Mg Tablet.er 0.8 Mg PO DAILY Namenda Xr (Memantine Hcl) 7 Mg Cap.spr.24 7 Mg PO DAILY EXELON 4.6mg/24hr (Rivastigmine) 1 Each Patch.td24 1 Patch TD DAILY Diagnosis: Problems: (1) Mental status change (2) Anxiety disorder (3) Dementia in Alzheimer's disease with depression (4) Dementia, vascular, with delusions (5) Dementia, vascular, with depression (6) Dementia in Alzheimer's disease with delusions (7) Impulse control disorder YOGESH VELASQUEZ MD Dec 10, 2016 08:04
[2016-12-10] MEDS: CALCIUM CARB/VIT D3 500/200 TABLET PO SCH (08:29)
[2016-12-10] MEDS: VITAMIN B COMPLEX CAPSULE. PO SCH (08:29)
[2016-12-10] MEDS: busPIRone 5 MG TABLET. PO SCH ×3 (08:30→19:27)
[2016-12-10] MEDS: FOLIC ACID 0.4 MG TABLET PO SCH (08:30)
[2016-12-10] MEDS: RALOXIFENE 60 MG TABLET. PO SCH (08:30)
[2016-12-10] MEDS: SERTRALINE 50 MG TABLET. PO SCH (08:30)
[2016-12-10] MEDS: MEMANTINE 5 MG TABLET. PO SCH ×2 (08:30→19:27)
[2016-12-10] MEDS: QUEtiapine 25 MG TABLET. PO SCH ×4 (08:30→19:27)
[2016-12-10] MEDS: RIVASTIGMINE 9.5MG PATCH. TD SCH (08:31)
[2016-12-10] MEDS: CHOLECALCIFEROL (VITAMIN D3) 50,000 UNIT CAPSULE PO SCH (08:32)
[2016-12-10] MEDS: HYDROXYZINE HCL 25 MG TABLET PO PRN (15:11)
[2016-12-10 16:18] VITALS: BP 128/99
[2016-12-10] MEDS: MIRTAZAPINE 7.5 MG TABLET. PO SCH (19:27)
--- NOTE | 2016-12-10 21:49 | PN ---
DATE: 12/09/2016 SUBJECTIVE: This is a late entry 12/09/2016 covers elements not covered in my initial note. Per nursing report, the patient has been restless, oriented just to herself, hallucinating at times, constantly moving as ___ and oblivious of circumstances around her. REVIEW OF SYSTEMS: Ambulation impaired. She is in a Broda chair. No CV, , pulmonary, eye, or ENT system symptoms on review. Reliability poor. MENTAL STATUS EXAM: Oriented to herself. Insight, judgment, recent and remote memory, attention, concentration, fund of knowledge poor, consistent with her diagnosis. LABORATORY DATA: Reviewed. IMPRESSION: Major neurocognitive disorder, Alzheimer, vascular with depression, delusion, behavioral disturbance; anxiety disorder, unspecified; and impulse control disorder, unspecified. PLAN: Increase BuSpar from 5 mg b.i.d. to 5 mg 3 times a day. Continue Seroquel 25 mg 4 times a day, Remeron 7.5 mg at bedtime, Atarax p.r.n., Zyprexa p.r.n., trazodone at bedtime p.r.n., Exelon patch 9.5 mg a day, Namenda 5 b.i.d., Zoloft 50 mg a day, and Zyprexa p.r.n. Adjust further as clinically indicated. MAN Jaclyn VELASQUEZ MD DR: AMARJIT/mason JOB#: [id number] / [id number]
[2016-12-11 06:00] VITALS: BP 130/80
[2016-12-11] MEDS: LEVOTHYROXINE 25 MCG TABLET. PO SCH (06:28)
[2016-12-11] MEDS: CALCIUM CARB/VIT D3 500/200 TABLET PO SCH (08:34)
[2016-12-11] MEDS: MEMANTINE 5 MG TABLET. PO SCH ×2 (08:34→19:46)
[2016-12-11] MEDS: QUEtiapine 25 MG TABLET. PO SCH ×4 (08:34→19:46)
[2016-12-11] MEDS: busPIRone 5 MG TABLET. PO SCH ×3 (08:34→19:46)
[2016-12-11] MEDS: RALOXIFENE 60 MG TABLET. PO SCH (08:34)
[2016-12-11] MEDS: SERTRALINE 50 MG TABLET. PO SCH (08:34)
[2016-12-11] MEDS: FOLIC ACID 0.4 MG TABLET PO SCH (08:35)
[2016-12-11] MEDS: RIVASTIGMINE 9.5MG PATCH. TD SCH (08:35)
[2016-12-11] MEDS: VITAMIN B COMPLEX CAPSULE. PO SCH (08:35)
[2016-12-11] MEDS: OLANZAPINE ZYDIS 5 MG TAB.RAPDIS PO PRN (12:39)
[2016-12-11 16:32] VITALS: BP 117/61
[2016-12-11] MEDS: MIRTAZAPINE 7.5 MG TABLET. PO SCH (19:46)
[2016-12-12] MEDS: LEVOTHYROXINE 25 MCG TABLET. PO SCH (05:12)
--- NOTE | 2016-12-12 06:19 | PN ---
DATE: 12/10/2016 This is a late entry for 12/10/2016 and covers elements not covered in my initial note. Per nursing report, the patient is intermittently agitated, restless, received a p.r.n. and then does better. She walked with staff for 90 minutes to help calm her down and this seemed to help, played black hosea. Despite her cognitive difficulties, she was able semi-participate in this. REVIEW OF SYSTEMS: Ambulation impaired, in a Broda chair. No CV, , pulmonary, eye, ENT system symptoms on review. MENTAL STATUS EXAM: Oriented to herself. Insight, judgment, recent and remote memory, attention, concentration, fund of knowledge poor, consistent with her diagnosis as mentioned in my initial note. PLAN: Continue current psychotropics. Adjust as clinically indicated. MAN Jaclyn VELASQUEZ MD DR: AMARJIT/mason JOB#: [id number] / [id number]
[2016-12-12 06:33] VITALS: BP 116/66
[2016-12-12] MEDS: RIVASTIGMINE 9.5MG PATCH. TD SCH (08:35)
[2016-12-12] MEDS: FOLIC ACID 0.4 MG TABLET PO SCH (08:35)
[2016-12-12] MEDS: VITAMIN B COMPLEX CAPSULE. PO SCH (08:35)
[2016-12-12] MEDS: QUEtiapine 25 MG TABLET. PO SCH ×4 (08:36→20:31)
[2016-12-12] MEDS: MEMANTINE 5 MG TABLET. PO SCH ×2 (08:36→20:31)
[2016-12-12] MEDS: busPIRone 5 MG TABLET. PO SCH ×3 (08:36→20:31)
[2016-12-12] MEDS: SERTRALINE 50 MG TABLET. PO SCH (08:36)
[2016-12-12] MEDS: CALCIUM CARB/VIT D3 500/200 TABLET PO SCH (08:36)
[2016-12-12] MEDS: RALOXIFENE 60 MG TABLET. PO SCH (08:36)
[2016-12-12 15:34] VITALS: BP 116/71
[2016-12-12] MEDS: MIRTAZAPINE 7.5 MG TABLET. PO SCH (20:31)
--- NOTE | 2016-12-12 20:48 | PDOC ---
Exam Olivier Demential Exam: Olivier Note: Please also refer to the separate dictated note~for this date of service dictated separately.~Patient seen individually. Discussed the patient with Nursing staff reviewed the chart.~Reviewed interim history and current functioning. Reviewed vital signs,~Labs/ Radiology~and current medications noted below. Continue current treatment with the changes noted in the dictated addendum note Assessment: Vital Signs: Vital Signs Date Time Temp Pulse Resp B/P Pulse Ox O2 Delivery O2 Flow Rate FiO2 12/12/16 15:34 98.2 89 16 116/71 95 12/12/16 06:33 Room Air I&O Intake and Output 12/12/16 07:00 Intake Total 540 ml Balance 540 ml Intake Oral 480 ml Tube Feeding 60 ml # Bowel Movements 1 Current Medications: Meds: Current Medications Diphenhydramine HCl (Benadryl) 50 mg 1X ONCE PO Last administered on 20:00; Start 11/29/16 at 20:00; Stop 11/29/16 at 20:11; Status DC Olanzapine (Zyprexa) 10 mg 1X ONCE PO Last administered on 11/29/16 20:05; Start 11/29/16 at 20:00; Stop 11/29/16 at 20:12; Status DC Lorazepam (Ativan) 1 mg 1X ONCE PO Last administered on 11/29/16 20:05; Start 11/29/16 at 20:00; Stop 11/29/16 at 20:11; Status DC Diphenhydramine HCl (Benadryl) 25 mg STK-MED ONCE PO ; Start 11/29/16 at 20:02; Stop 11/29/16 at 20:03; Status DC Cephalexin HCl (Keflex) 500 mg TID PO Last administered on 12/01/16 13:48; Start 11/29/16 at 21:00; Stop 12/01/16 at 14:15; Status DC Acetaminophen (Tylenol) 650 mg PRN Q6HRS PRN PO PAIN / TEMP; Start 11/29/16 at 20:45 Multi-Ingredient Ointment (Analgesic [place]) 1 sagar PRN QID PRN TP MUSCLE PAIN; Start 11/29/16 at 20:45 Al Hydroxide/Mg Hydroxide (Mylanta Plus Xs) 15 ml PRN AFTMEALHC PRN PO DYSPEPSIA; Start 11/29/16 at 20:45 Magnesium Hydroxide (Milk Of Magnesia) 2,400 mg PRN QHS PRN PO CONSTIPATION Last administered on 12/03/16 19:22; Start 11/29/16 at 20:45 Memantine (Namenda) 5 mg BID PO Last administered on 12/12/16 20:31; Start at 21:00 Rivastigmine (Exelon) 1 patch DAILY TD Last administered on 12/06/16 08:21; Start 11/30/16 at 09:00; Stop 12/06/16 at 12:19; Status DC Sertraline HCl (Zoloft) 25 mg DAILY PO Last administered on 12/06/16 08:20; Start 11/30/16 at 09:00; Stop 12/06/16 at 12:19; Status DC Olanzapine (Zyprexa Zydis) 2.5 mg PRN Q2HR PRN PO Psych Last administered on 12:39; Start 11/29/16 at 20:45 Calcium/Vitamin D (Oscal D 500mg/ 200uts) 1 tab DAILYWBKFT PO Last administered on 12/12/16 08:36; Start 11/30/16 at 08:00 Levothyroxine Sodium (Synthroid) 25 mcg DAILY06 PO Last administered on 05:12; Start 11/30/16 at 06:00 Raloxifene HCl (Evista) 60 mg DAILY PO Last administered on 12/12/16 08:36; Start 11/30/16 at 09:00 Vitamin B Complex 1 cap DAILY PO Last administered on 12/12/16 08:35; Start at 09:00 Iohexol (Omnipaque 300 Mg/ml) 75 ml 1X ONCE IV ; Start 11/29/16 at 22:45; Stop 11/29/16 at 22:46; Status DC Info (Do NOT chart on this entry -- for MONITORING) 1 each PRN DAILY PRN MC SEE COMMENTS; Start 11/29/16 at 22:45; Stop 12/01/16 at 22:44; Status DC Folic Acid (Folic Acid) 0.8 mg DAILY PO Last administered on 12/12/16 08:35; Start 11/30/16 at 09:00 Trazodone HCl (Desyrel) 50 mg PRN QHS PRN PO INSOMNIA, MAY REPEAT X1 Last administered on 11/30/16 21:08; Start 11/30/16 at 16:45 Amoxicillin (Amoxil) 500 mg [id number] PO Last administered on 12/08/16 12:33; Start 12/01/16 at 21:00; Stop 12/08/16 at 20:59; Status DC Mirtazapine (Remeron) 7.5 mg QHS PO Last administered on 12/12/16 20:31; Start 12/01/16 at 21:00 Hydroxyzine HCl (Atarax) 25 mg PRN Q2HR PRN PO ANXIETY / AGITATION Last administered on 12/10/16 15:11; Start 12/01/16 at 18:15 Vitamin D (Vitamin D3) 50,000 unit WEEKLY PO Last administered on 12/10/16 08: 32; Start 12/03/16 at 09:00 Quetiapine Fumarate (SEROquel) 12.5 mg BID PO Last administered on 12/04/16 09: 31; Start 12/02/16 at 21:00; Stop 12/04/16 at 18:23; Status DC Quetiapine Fumarate (SEROquel) 12.5 mg QID PO Last administered on 12/06/16 16: 33; Start 12/04/16 at 21:00; Stop 12/06/16 at 17:46; Status DC Sertraline HCl (Zoloft) 50 mg DAILY PO Last administered on 12/12/16 08:36; Start 12/07/16 at 09:00 Rivastigmine (Exelon) 1 patch DAILY TD Last administered on 12/12/16 08:35; Start 12/07/16 at 09:00 Olanzapine (Zyprexa Zydis) 2.5 mg BID PO ; Start 12/06/16 at 21:00; Stop 12/06/16 at 21:00; Status DC Olanzapine (Zyprexa Zydis) 2.5 mg BID92 PO ; Start 12/06/16 at 21:00; Status Cancel Olanzapine (Zyprexa Zydis) 2.5 mg BID92 PO Last administered on 12/07/16 13:36 ; Start 12/07/16 at 09:00; Stop 12/07/16 at 18:46; Status DC Quetiapine Fumarate (SEROquel) 25 mg QID PO Last administered on 12/12/16 20: 31; Start 12/07/16 at 21:00 Buspirone HCl (Buspar) 5 mg BID PO Last administered on 12/09/16 08:35; Start 12/07/16 at 21:00; Stop 12/09/16 at 18:31; Status DC Buspirone HCl (Buspar) 5 mg TID PO Last administered on 12/12/16 13:25; Start 12/09/16 at 21:00; Stop 12/12/16 at 18:03; Status DC Buspirone HCl (Buspar) 5 mg QID PO Last administered on 12/12/16 20:31; Start 12/12/16 at 21:00 Active Scripts Active Reported Zyprexa Zydis (Olanzapine) 10 Mg Tab.rapdis 10 Mg PO PRN Q4HRS PRN Zyprexa (Olanzapine) 2.5 Mg Tablet 2.5 Mg PO QHS Namenda (Memantine Hcl) 5 Mg Tablet 2.5 Mg PO QHS 4 Days Namenda (Memantine Hcl) 5 Mg Tablet 5 Mg PO DAILY 4 Days Synthroid (Levothyroxine Sodium) 25 Mcg Tablet 25 Mcg PO DAILY06 Zoloft (Sertraline Hcl) 25 Mg Tablet 25 Mg PO DAILY Oyster Shell 500 Mg + Vit D Tb (Calcium Carbonate/Vitamin D3) 1 Each Tablet 1 Tab PO DAILY Evista (Raloxifene Hcl) 60 Mg Tablet 60 Mg PO DAILY Gnp B-50 Complex Tablet (Vitamin B Complex/Folic Acid) 0.4 Mg Tablet.er 0.8 Mg PO DAILY Namenda Xr (Memantine Hcl) 7 Mg Cap.spr.24 7 Mg PO DAILY EXELON 4.6mg/24hr (Rivastigmine) 1 Each Patch.td24 1 Patch TD DAILY Diagnosis: Problems: (1) Impulse control disorder (2) Dementia in Alzheimer's disease with delusions (3) Dementia, vascular, with depression (4) Dementia, vascular, with delusions (5) Dementia in Alzheimer's disease with depression (6) Anxiety disorder YOGESH VELASQUEZ MD Dec 12, 2016 20:48
[2016-12-13] MEDS: traZODone 50 MG TABLET. PO PRN (01:48)
[2016-12-13] MEDS: LEVOTHYROXINE 25 MCG TABLET. PO SCH (05:35)
[2016-12-13 05:49] VITALS: BP 132/73
[2016-12-13] MEDS: busPIRone 5 MG TABLET. PO SCH ×4 (09:05→19:10)
[2016-12-13] MEDS: MEMANTINE 5 MG TABLET. PO SCH ×2 (09:05→19:10)
[2016-12-13] MEDS: CALCIUM CARB/VIT D3 500/200 TABLET PO SCH (09:05)
[2016-12-13] MEDS: FOLIC ACID 0.4 MG TABLET PO SCH (09:05)
[2016-12-13] MEDS: QUEtiapine 25 MG TABLET. PO SCH ×4 (09:05→19:10)
[2016-12-13] MEDS: VITAMIN B COMPLEX CAPSULE. PO SCH (09:05)
[2016-12-13] MEDS: RALOXIFENE 60 MG TABLET. PO SCH (09:05)
[2016-12-13] MEDS: SERTRALINE 50 MG TABLET. PO SCH (09:05)
[2016-12-13] MEDS: RIVASTIGMINE 9.5MG PATCH. TD SCH (09:06)
[2016-12-13 15:16] VITALS: BP 102/61
--- NOTE | 2016-12-13 18:00 | PN ---
DATE: 12/11/2016 SUBJECTIVE: The patient was seen on rounds on the evening of 12/11. Discussed with nursing staff, reviewed the chart, staffed at a treatment team meeting with the entire team on the morning of 12/11. The patient's , Mohit and son, Ugo, attended the treatment team meeting on the morning of 12/11. Reviewed the patient's history at length, diagnosis, medications, prognosis. Sleeping about 7-1/2 hours. Appetite 75% to 100%. Labs unremarkable. Compliant with medications. Delusional. Antibiotics for UTI have been completed. Temperature 98.2, BP 130/80, pulse 70, respirations 18. REVIEW OF SYSTEMS: Ambulation impaired. No CV, , pulmonary, eye, ENT system symptoms on review. MENTAL STATUS EXAM: Oriented to herself. Insight, judgment, recent and remote memory, attention, concentration, fund of knowledge poor, consistent with her diagnosis. DIAGNOSES: Major neurocognitive disorder, Alzheimer, vascular with depression, delusion, behavioral disturbance. Rest unchanged. PLAN: The patient may need new placement. Continue Exelon patch 9.5 mg a day, Namenda 5 b.i.d., Zoloft 50 mg a day, Zyprexa p.r.n., trazodone 50 at bedtime, may repeat x 1, Remeron 7.5 at bedtime, BuSpar 5 t.i.d., Seroquel 25 four times a day. Adjust further as clinically indicated. YOGESH VELASQUEZ MD DR: AMARJIT/mason JOB#: [id number] / [id number]
--- NOTE | 2016-12-13 18:22 | PDOC ---
Exam Olivier Demential Exam: Olivier Note: Please also refer to the separate dictated note~for this date of service dictated separately.~Patient seen individually. Discussed the patient with Nursing staff reviewed the chart.~Reviewed interim history and current functioning. Reviewed vital signs,~Labs/ Radiology~and current medications noted below. Continue current treatment with the changes noted in the dictated addendum note Assessment: Vital Signs: Vital Signs Date Time Temp Pulse Resp B/P Pulse Ox O2 Delivery O2 Flow Rate FiO2 12/13/16 15:16 98.0 73 16 102/61 96 Room Air I&O Intake and Output 12/13/16 07:00 Intake Total 840 ml Balance 840 ml Intake Oral 840 ml # Voids 1 # Bowel Movements 1 Current Medications: Meds: Current Medications Diphenhydramine HCl (Benadryl) 50 mg 1X ONCE PO Last administered on 20:00; Start 11/29/16 at 20:00; Stop 11/29/16 at 20:11; Status DC Olanzapine (Zyprexa) 10 mg 1X ONCE PO Last administered on 11/29/16 20:05; Start 11/29/16 at 20:00; Stop 11/29/16 at 20:12; Status DC Lorazepam (Ativan) 1 mg 1X ONCE PO Last administered on 11/29/16 20:05; Start 11/29/16 at 20:00; Stop 11/29/16 at 20:11; Status DC Diphenhydramine HCl (Benadryl) 25 mg STK-MED ONCE PO ; Start 11/29/16 at 20:02; Stop 11/29/16 at 20:03; Status DC Cephalexin HCl (Keflex) 500 mg TID PO Last administered on 12/01/16 13:48; Start 11/29/16 at 21:00; Stop 12/01/16 at 14:15; Status DC Acetaminophen (Tylenol) 650 mg PRN Q6HRS PRN PO PAIN / TEMP; Start 11/29/16 at 20:45 Multi-Ingredient Ointment (Analgesic [place]) 1 sagar PRN QID PRN TP MUSCLE PAIN; Start 11/29/16 at 20:45 Al Hydroxide/Mg Hydroxide (Mylanta Plus Xs) 15 ml PRN AFTMEALHC PRN PO DYSPEPSIA; Start 11/29/16 at 20:45 Magnesium Hydroxide (Milk Of Magnesia) 2,400 mg PRN QHS PRN PO CONSTIPATION Last administered on 12/03/16 19:22; Start 11/29/16 at 20:45 Memantine (Namenda) 5 mg BID PO Last administered on 12/13/16 09:05; Start at 21:00 Rivastigmine (Exelon) 1 patch DAILY TD Last administered on 12/06/16 08:21; Start 11/30/16 at 09:00; Stop 12/06/16 at 12:19; Status DC Sertraline HCl (Zoloft) 25 mg DAILY PO Last administered on 12/06/16 08:20; Start 11/30/16 at 09:00; Stop 12/06/16 at 12:19; Status DC Olanzapine (Zyprexa Zydis) 2.5 mg PRN Q2HR PRN PO Psych Last administered on 12:39; Start 11/29/16 at 20:45 Calcium/Vitamin D (Oscal D 500mg/ 200uts) 1 tab DAILYWBKFT PO Last administered on 12/13/16 09:05; Start 11/30/16 at 08:00 Levothyroxine Sodium (Synthroid) 25 mcg DAILY06 PO Last administered on 05:35; Start 11/30/16 at 06:00 Raloxifene HCl (Evista) 60 mg DAILY PO Last administered on 12/13/16 09:05; Start 11/30/16 at 09:00 Vitamin B Complex 1 cap DAILY PO Last administered on 12/13/16 09:05; Start at 09:00 Iohexol (Omnipaque 300 Mg/ml) 75 ml 1X ONCE IV ; Start 11/29/16 at 22:45; Stop 11/29/16 at 22:46; Status DC Info (Do NOT chart on this entry -- for MONITORING) 1 each PRN DAILY PRN MC SEE COMMENTS; Start 11/29/16 at 22:45; Stop 12/01/16 at 22:44; Status DC Folic Acid (Folic Acid) 0.8 mg DAILY PO Last administered on 12/13/16 09:05; Start 11/30/16 at 09:00 Trazodone HCl (Desyrel) 50 mg PRN QHS PRN PO INSOMNIA, MAY REPEAT X1 Last administered on 12/13/16 01:48; Start 11/30/16 at 16:45 Amoxicillin (Amoxil) 500 mg [id number] PO Last administered on 12/08/16 12:33; Start 12/01/16 at 21:00; Stop 12/08/16 at 20:59; Status DC Mirtazapine (Remeron) 7.5 mg QHS PO Last administered on 12/12/16 20:31; Start 12/01/16 at 21:00 Hydroxyzine HCl (Atarax) 25 mg PRN Q2HR PRN PO ANXIETY / AGITATION Last administered on 12/10/16 15:11; Start 12/01/16 at 18:15 Vitamin D (Vitamin D3) 50,000 unit WEEKLY PO Last administered on 12/10/16 08: 32; Start 12/03/16 at 09:00 Quetiapine Fumarate (SEROquel) 12.5 mg BID PO Last administered on 12/04/16 09: 31; Start 12/02/16 at 21:00; Stop 12/04/16 at 18:23; Status DC Quetiapine Fumarate (SEROquel) 12.5 mg QID PO Last administered on 12/06/16 16: 33; Start 12/04/16 at 21:00; Stop 12/06/16 at 17:46; Status DC Sertraline HCl (Zoloft) 50 mg DAILY PO Last administered on 12/13/16 09:05; Start 12/07/16 at 09:00 Rivastigmine (Exelon) 1 patch DAILY TD Last administered on 12/13/16 09:06; Start 12/07/16 at 09:00 Olanzapine (Zyprexa Zydis) 2.5 mg BID PO ; Start 12/06/16 at 21:00; Stop 12/06/16 at 21:00; Status DC Olanzapine (Zyprexa Zydis) 2.5 mg BID92 PO ; Start 12/06/16 at 21:00; Status Cancel Olanzapine (Zyprexa Zydis) 2.5 mg BID92 PO Last administered on 12/07/16 13:36 ; Start 12/07/16 at 09:00; Stop 12/07/16 at 18:46; Status DC Quetiapine Fumarate (SEROquel) 25 mg QID PO Last administered on 12/13/16 16: 54; Start 12/07/16 at 21:00 Buspirone HCl (Buspar) 5 mg BID PO Last administered on 12/09/16 08:35; Start 12/07/16 at 21:00; Stop 12/09/16 at 18:31; Status DC Buspirone HCl (Buspar) 5 mg TID PO Last administered on 12/12/16 13:25; Start 12/09/16 at 21:00; Stop 12/12/16 at 18:03; Status DC Buspirone HCl (Buspar) 5 mg QID PO Last administered on 12/13/16 16:55; Start 12/12/16 at 21:00 Active Scripts Active Reported Zyprexa Zydis (Olanzapine) 10 Mg Tab.rapdis 10 Mg PO PRN Q4HRS PRN Zyprexa (Olanzapine) 2.5 Mg Tablet 2.5 Mg PO QHS Namenda (Memantine Hcl) 5 Mg Tablet 2.5 Mg PO QHS 4 Days Namenda (Memantine Hcl) 5 Mg Tablet 5 Mg PO DAILY 4 Days Synthroid (Levothyroxine Sodium) 25 Mcg Tablet 25 Mcg PO DAILY06 Zoloft (Sertraline Hcl) 25 Mg Tablet 25 Mg PO DAILY Oyster Shell 500 Mg + Vit D Tb (Calcium Carbonate/Vitamin D3) 1 Each Tablet 1 Tab PO DAILY Evista (Raloxifene Hcl) 60 Mg Tablet 60 Mg PO DAILY Gnp B-50 Complex Tablet (Vitamin B Complex/Folic Acid) 0.4 Mg Tablet.er 0.8 Mg PO DAILY Namenda Xr (Memantine Hcl) 7 Mg Cap.spr.24 7 Mg PO DAILY EXELON 4.6mg/24hr (Rivastigmine) 1 Each Patch.td24 1 Patch TD DAILY Diagnosis: Problems: (1) Impulse control disorder (2) Dementia in Alzheimer's disease with delusions (3) Dementia, vascular, with depression (4) Dementia, vascular, with delusions (5) Dementia in Alzheimer's disease with depression (6) Anxiety disorder YOGESH VELASQUEZ MD Dec 13, 2016 18:22
[2016-12-13] MEDS: MIRTAZAPINE 7.5 MG TABLET. PO SCH (19:10)
[2016-12-14] MEDS: LEVOTHYROXINE 25 MCG TABLET. PO SCH (05:12)
[2016-12-14 05:51] VITALS: BP 113/60
[2016-12-14 07:01] LABS: ALBUMIN 2.8 g/dL (3.4-5.0); ALBUMIN/GLOBULIN RATIO 0.8 (1.0-1.7); CALCIUM 8.4 mg/dL (8.5-10.1); CREATININE 0.9 mg/dL (0.6-1.0); GFR 61.2; POTASSIUM 3.8 mmol/L (3.5-5.1); TOTAL BILIRUBIN 0.4 mg/dL (0.2-1.0); TOTAL PROTEIN 6.1 g/dL (6.4-8.2)
[2016-12-14 07:06] LABS: HEMATOCRIT 38.7 % (36.0-47.0); HEMOGLOBIN 12.5 g/dL (12.0-15.5); RED BLOOD COUNT 4.15 x10^6/uL (3.50-5.40); RED CELL DISTRIBUTION WIDTH 14.4 % (11.5-14.5); WHITE BLOOD COUNT 5.9 x10^3/uL (4.0-11.0)
[2016-12-14] MEDS: RALOXIFENE 60 MG TABLET. PO SCH (08:30)
[2016-12-14] MEDS: VITAMIN B COMPLEX CAPSULE. PO SCH (08:30)
[2016-12-14] MEDS: MEMANTINE 5 MG TABLET. PO SCH ×2 (08:30→20:23)
[2016-12-14] MEDS: CALCIUM CARB/VIT D3 500/200 TABLET PO SCH (08:30)
[2016-12-14] MEDS: SERTRALINE 50 MG TABLET. PO SCH (08:31)
[2016-12-14] MEDS: QUEtiapine 25 MG TABLET. PO SCH ×4 (08:31→20:23)
[2016-12-14] MEDS: RIVASTIGMINE 9.5MG PATCH. TD SCH (08:31)
[2016-12-14] MEDS: busPIRone 5 MG TABLET. PO SCH ×3 (08:31→17:05)
[2016-12-14] MEDS: FOLIC ACID 0.4 MG TABLET PO SCH (08:31)
--- NOTE | 2016-12-14 09:38 | PDOC ---
Exam Olivier Demential Exam: Olivier Note: Please also refer to the separate dictated note~for this date of service dictated separately.~Patient seen individually. Discussed the patient with Nursing staff reviewed the chart.~Reviewed interim history and current functioning. Reviewed vital signs,~Labs/ Radiology~and current medications noted below. Continue current treatment with the changes noted in the dictated addendum note Assessment: Vital Signs: Vital Signs Date Time Temp Pulse Resp B/P Pulse Ox O2 Delivery O2 Flow Rate FiO2 12/14/16 05:51 98.1 74 16 113/60 99 12/13/16 15:16 Room Air I&O Intake and Output 12/14/16 07:00 Intake Total 720 ml Balance 720 ml Intake Oral 720 ml Labs: Laboratory Tests Test 12/14/16 06:36 White Blood Count 5.9x10^3/uL (4.0-11.0) Red Blood Count 4.15x10^6/uL (3.50-5.40) Hemoglobin 12.5g/dL (12.0-15.5) Hematocrit 38.7% (36.0-47.0) Mean Corpuscular Volume 93fL (79-100) Mean Corpuscular Hemoglobin 30pg (25-35) Mean Corpuscular Hemoglobin Concent 32g/dL (31-37) Red Cell Distribution Width 14.4% (11.5-14.5) Platelet Count 230x10^3/uL (140-400) Sodium Level 145mmol/L (136-145) Potassium Level 3.8mmol/L (3.5-5.1) Chloride Level 109mmol/L (98-107) H Carbon Dioxide Level 32mmol/L (21-32) Anion Gap 4 (6-14) L Blood Urea Nitrogen 15mg/dL (7-20) Creatinine 0.9mg/dL (0.6-1.0) Estimated GFR (Cockcroft-Gault) 61.2 BUN/Creatinine Ratio 17 (6-20) Glucose Level 93mg/dL (70-99) Calcium Level 8.4mg/dL (8.5-10.1) L Magnesium Level 2.0mg/dL (1.8-2.4) Total Bilirubin 0.4mg/dL (0.2-1.0) Aspartate Amino Transferase (AST) 25U/L (15-37) Alanine Aminotransferase (ALT) 29U/L (14-59) Alkaline Phosphatase 74U/L (46-116) Total Protein 6.1g/dL (6.4-8.2) L Albumin 2.8g/dL (3.4-5.0) L Albumin/Globulin Ratio 0.8 (1.0-1.7) L Current Medications: Meds: Current Medications Diphenhydramine HCl (Benadryl) 50 mg 1X ONCE PO Last administered on 20:00; Start 11/29/16 at 20:00; Stop 11/29/16 at 20:11; Status DC Olanzapine (Zyprexa) 10 mg 1X ONCE PO Last administered on 11/29/16 20:05; Start 11/29/16 at 20:00; Stop 11/29/16 at 20:12; Status DC Lorazepam (Ativan) 1 mg 1X ONCE PO Last administered on 11/29/16 20:05; Start 11/29/16 at 20:00; Stop 11/29/16 at 20:11; Status DC Diphenhydramine HCl (Benadryl) 25 mg STK-MED ONCE PO ; Start 11/29/16 at 20:02; Stop 11/29/16 at 20:03; Status DC Cephalexin HCl (Keflex) 500 mg TID PO Last administered on 12/01/16 13:48; Start 11/29/16 at 21:00; Stop 12/01/16 at 14:15; Status DC Acetaminophen (Tylenol) 650 mg PRN Q6HRS PRN PO PAIN / TEMP; Start 11/29/16 at 20:45 Multi-Ingredient Ointment (Analgesic [place]) 1 sagar PRN QID PRN TP MUSCLE PAIN; Start 11/29/16 at 20:45 Al Hydroxide/Mg Hydroxide (Mylanta Plus Xs) 15 ml PRN AFTMEALHC PRN PO DYSPEPSIA; Start 11/29/16 at 20:45 Magnesium Hydroxide (Milk Of Magnesia) 2,400 mg PRN QHS PRN PO CONSTIPATION Last administered on 12/03/16 19:22; Start 11/29/16 at 20:45 Memantine (Namenda) 5 mg BID PO Last administered on 12/14/16 08:30; Start at 21:00 Rivastigmine (Exelon) 1 patch DAILY TD Last administered on 12/06/16 08:21; Start 11/30/16 at 09:00; Stop 12/06/16 at 12:19; Status DC Sertraline HCl (Zoloft) 25 mg DAILY PO Last administered on 12/06/16 08:20; Start 11/30/16 at 09:00; Stop 12/06/16 at 12:19; Status DC Olanzapine (Zyprexa Zydis) 2.5 mg PRN Q2HR PRN PO Psych Last administered on 12:39; Start 11/29/16 at 20:45 Calcium/Vitamin D (Oscal D 500mg/ 200uts) 1 tab DAILYWBKFT PO Last administered on 12/14/16 08:30; Start 11/30/16 at 08:00 Levothyroxine Sodium (Synthroid) 25 mcg DAILY06 PO Last administered on 05:12; Start 11/30/16 at 06:00 Raloxifene HCl (Evista) 60 mg DAILY PO Last administered on 12/14/16 08:30; Start 11/30/16 at 09:00 Vitamin B Complex 1 cap DAILY PO Last administered on 12/14/16 08:30; Start at 09:00 Iohexol (Omnipaque 300 Mg/ml) 75 ml 1X ONCE IV ; Start 11/29/16 at 22:45; Stop 11/29/16 at 22:46; Status DC Info (Do NOT chart on this entry -- for MONITORING) 1 each PRN DAILY PRN MC SEE COMMENTS; Start 11/29/16 at 22:45; Stop 12/01/16 at 22:44; Status DC Folic Acid (Folic Acid) 0.8 mg DAILY PO Last administered on 12/14/16 08:31; Start 11/30/16 at 09:00 Trazodone HCl (Desyrel) 50 mg PRN QHS PRN PO INSOMNIA, MAY REPEAT X1 Last administered on 12/13/16 01:48; Start 11/30/16 at 16:45 Amoxicillin (Amoxil) 500 mg [id number] PO Last administered on 12/08/16 12:33; Start 12/01/16 at 21:00; Stop 12/08/16 at 20:59; Status DC Mirtazapine (Remeron) 7.5 mg QHS PO Last administered on 12/13/16 19:10; Start 12/01/16 at 21:00 Hydroxyzine HCl (Atarax) 25 mg PRN Q2HR PRN PO ANXIETY / AGITATION Last administered on 12/10/16 15:11; Start 12/01/16 at 18:15 Vitamin D (Vitamin D3) 50,000 unit WEEKLY PO Last administered on 12/10/16 08: 32; Start 12/03/16 at 09:00 Quetiapine Fumarate (SEROquel) 12.5 mg BID PO Last administered on 12/04/16 09: 31; Start 12/02/16 at 21:00; Stop 12/04/16 at 18:23; Status DC Quetiapine Fumarate (SEROquel) 12.5 mg QID PO Last administered on 12/06/16 16: 33; Start 12/04/16 at 21:00; Stop 12/06/16 at 17:46; Status DC Sertraline HCl (Zoloft) 50 mg DAILY PO Last administered on 12/14/16 08:31; Start 12/07/16 at 09:00 Rivastigmine (Exelon) 1 patch DAILY TD Last administered on 12/14/16 08:31; Start 12/07/16 at 09:00 Olanzapine (Zyprexa Zydis) 2.5 mg BID PO ; Start 12/06/16 at 21:00; Stop 12/06/16 at 21:00; Status DC Olanzapine (Zyprexa Zydis) 2.5 mg BID92 PO ; Start 12/06/16 at 21:00; Status Cancel Olanzapine (Zyprexa Zydis) 2.5 mg BID92 PO Last administered on 12/07/16 13:36 ; Start 12/07/16 at 09:00; Stop 12/07/16 at 18:46; Status DC Quetiapine Fumarate (SEROquel) 25 mg QID PO Last administered on 12/14/16 08: 31; Start 12/07/16 at 21:00 Buspirone HCl (Buspar) 5 mg BID PO Last administered on 12/09/16 08:35; Start 12/07/16 at 21:00; Stop 12/09/16 at 18:31; Status DC Buspirone HCl (Buspar) 5 mg TID PO Last administered on 12/12/16 13:25; Start 12/09/16 at 21:00; Stop 12/12/16 at 18:03; Status DC Buspirone HCl (Buspar) 5 mg QID PO Last administered on 12/14/16 08:31; Start 12/12/16 at 21:00 Active Scripts Active Reported Zyprexa Zydis (Olanzapine) 10 Mg Tab.rapdis 10 Mg PO PRN Q4HRS PRN Zyprexa (Olanzapine) 2.5 Mg Tablet 2.5 Mg PO QHS Namenda (Memantine Hcl) 5 Mg Tablet 2.5 Mg PO QHS 4 Days Namenda (Memantine Hcl) 5 Mg Tablet 5 Mg PO DAILY 4 Days Synthroid (Levothyroxine Sodium) 25 Mcg Tablet 25 Mcg PO DAILY06 Zoloft (Sertraline Hcl) 25 Mg Tablet 25 Mg PO DAILY Oyster Shell 500 Mg + Vit D Tb (Calcium Carbonate/Vitamin D3) 1 Each Tablet 1 Tab PO DAILY Evista (Raloxifene Hcl) 60 Mg Tablet 60 Mg PO DAILY Gnp B-50 Complex Tablet (Vitamin B Complex/Folic Acid) 0.4 Mg Tablet.er 0.8 Mg PO DAILY Namenda Xr (Memantine Hcl) 7 Mg Cap.spr.24 7 Mg PO DAILY EXELON 4.6mg/24hr (Rivastigmine) 1 Each Patch.td24 1 Patch TD DAILY Diagnosis: Problems: (1) Mental status change (2) Anxiety disorder (3) Dementia in Alzheimer's disease with depression (4) Dementia, vascular, with delusions (5) Dementia, vascular, with depression (6) Dementia in Alzheimer's disease with delusions (7) Impulse control disorder YOGESH VELASQUEZ MD Dec 14, 2016 09:38
--- NOTE | 2016-12-14 10:06 | PN ---
DATE: 12/13/2016 PSYCHIATRIC PROGRESS NOTE This note covers elements not covered in my initial note of 12/13/2016. SUBJECTIVE: Per nursing report, the patient has walked with assistance today, which is an improvement, still restless, confused, but less so than before. REVIEW OF SYSTEMS: Ambulation impaired. No CV, , pulmonary, eye, ENT system symptoms on review. MENTAL STATUS EXAM: Oriented to herself. Insight, judgment, recent and remote memory, attention, concentration, fund of knowledge poor, consistent with her diagnosis as mentioned in my initial note. PLAN: Continue current psychotropics. Adjust as indicated clinically. MAN Jaclyn VELASQUEZ MD DR: AMARJIT/mason JOB#: [id number] / [id number]
--- NOTE | 2016-12-14 10:06 | PN ---
DATE: 12/12/2016 PSYCHIATRIC PROGRESS NOTE This is a late entry of 12/12/2016 covers elements not covered in my initial note. SUBJECTIVE: Per nursing report, the patient has been less restless, compliant with her medications. No CV, , pulmonary, eye, ENT system symptoms on review. Ambulation impaired. She is in a Broda chair. MENTAL STATUS EXAM: Oriented to herself. Insight, judgment, recent and remote memory, attention, concentration, fund of knowledge poor, consistent with her diagnosis mentioned in my initial note. PLAN: Increase BuSpar from 5 t.i.d. to 4 times a day. Maintain the rest of psychotropics. Adjust as indicated. MAN Jaclyn VELASQUEZ MD DR: AMARJIT/mason JOB#: [id number] / [id number]
[2016-12-14] MEDS: OLANZAPINE ZYDIS 5 MG TAB.RAPDIS PO PRN (15:13)
[2016-12-14 16:25] VITALS: BP 122/88
[2016-12-14] MEDS: MIRTAZAPINE 7.5 MG TABLET. PO SCH (20:23)
[2016-12-14] MEDS: busPIRone 10 MG TABLET. PO SCH (20:24)
[2016-12-15] MEDS: LEVOTHYROXINE 25 MCG TABLET. PO SCH (06:28)
[2016-12-15 06:45] VITALS: BP 118/62
[2016-12-15 09:16] LABS: BILIRUBIN,URINE NEG (NEG); CLARITY,URINE HAZY; COLOR,URINE AMBER; GLUCOSE,URINE NEG (NEG); NITRITE,URINE NEG (NEG); UROBILINOGEN,URINE 0.2 mg/dL (0.2 mg/dL)
[2016-12-15 09:17] LABS: BACTERIA,URINE MOD /HPF (0-FEW); HYALINE CASTS, URINE FEW /HPF; SQUAMOUS EPITHELIAL CELL,UR FEW /LPF; WBC,URINE 20-40 /HPF (0-4)
[2016-12-15] MEDS: MEMANTINE 5 MG TABLET. PO SCH ×2 (09:37→19:47)
[2016-12-15] MEDS: SERTRALINE 50 MG TABLET. PO SCH (09:37)
[2016-12-15] MEDS: VITAMIN B COMPLEX CAPSULE. PO SCH (09:37)
[2016-12-15] MEDS: FOLIC ACID 0.4 MG TABLET PO SCH (09:37)
[2016-12-15] MEDS: CALCIUM CARB/VIT D3 500/200 TABLET PO SCH (09:37)
[2016-12-15] MEDS: QUEtiapine 25 MG TABLET. PO SCH ×4 (09:37→19:47)
[2016-12-15] MEDS: RALOXIFENE 60 MG TABLET. PO SCH (09:37)
[2016-12-15] MEDS: busPIRone 10 MG TABLET. PO SCH ×3 (09:37→19:47)
[2016-12-15] MEDS: RIVASTIGMINE 9.5MG PATCH. TD SCH (09:38)
[2016-12-15 16:40] VITALS: BP 107/63
[2016-12-15] MEDS: MIRTAZAPINE 7.5 MG TABLET. PO SCH (19:47)
--- NOTE | 2016-12-15 21:26 | PDOC ---
Exam Olivier Demential Exam: Olivier Note: Please also refer to the separate dictated note~for this date of service dictated separately.~Patient seen individually. Discussed the patient with Nursing staff reviewed the chart.~Reviewed interim history and current functioning. Reviewed vital signs,~Labs/ Radiology~and current medications noted below. Continue current treatment with the changes noted in the dictated addendum note Assessment: Vital Signs: Vital Signs Date Time Temp Pulse Resp B/P Pulse Ox O2 Delivery O2 Flow Rate FiO2 12/15/16 16:40 98.5 89 22 107/63 96 Room Air I&O Intake and Output 12/15/16 07:00 Intake Total 1320 ml Balance 1320 ml Intake Oral 1320 ml # Bowel Movements 1 Labs: Laboratory Tests Test 12/15/16 08:15 Urine Collection Type Unknown Urine Color Bri Urine Clarity Hazy Urine pH 5.0 Urine Specific [place] 1.025 Urine Protein Neg (NEG-TRACE) Urine Glucose (UA) Negmg/dL (NEG) Urine Ketones (Stick) Negmg/dL (NEG) Urine Blood Small (NEG) Urine Nitrite Neg (NEG) Urine Bilirubin Neg (NEG) Urine Urobilinogen Dipstick 0.2mg/dL (0.2 mg/dL) Urine Leukocyte Esterase Small (NEG) Urine RBC 11-20/HPF (0-2) Urine WBC 20-40/HPF (0-4) Urine Squamous Epithelial Cells Few/LPF Urine Transitional Epithelial Cells Few/LPF Urine Bacteria Mod/HPF (0-FEW) Urine Hyaline Casts Few/HPF Urine Mucus Mod/LPF Current Medications: Meds: Current Medications Diphenhydramine HCl (Benadryl) 50 mg 1X ONCE PO Last administered on 20:00; Start 11/29/16 at 20:00; Stop 11/29/16 at 20:11; Status DC Olanzapine (Zyprexa) 10 mg 1X ONCE PO Last administered on 11/29/16 20:05; Start 11/29/16 at 20:00; Stop 11/29/16 at 20:12; Status DC Lorazepam (Ativan) 1 mg 1X ONCE PO Last administered on 11/29/16 20:05; Start 11/29/16 at 20:00; Stop 11/29/16 at 20:11; Status DC Diphenhydramine HCl (Benadryl) 25 mg STK-MED ONCE PO ; Start 11/29/16 at 20:02; Stop 11/29/16 at 20:03; Status DC Cephalexin HCl (Keflex) 500 mg TID PO Last administered on 12/01/16 13:48; Start 11/29/16 at 21:00; Stop 12/01/16 at 14:15; Status DC Acetaminophen (Tylenol) 650 mg PRN Q6HRS PRN PO PAIN / TEMP; Start 11/29/16 at 20:45 Multi-Ingredient Ointment (Analgesic [place]) 1 sagar PRN QID PRN TP MUSCLE PAIN; Start 11/29/16 at 20:45 Al Hydroxide/Mg Hydroxide (Mylanta Plus Xs) 15 ml PRN AFTMEALHC PRN PO DYSPEPSIA; Start 11/29/16 at 20:45 Magnesium Hydroxide (Milk Of Magnesia) 2,400 mg PRN QHS PRN PO CONSTIPATION Last administered on 12/03/16 19:22; Start 11/29/16 at 20:45 Memantine (Namenda) 5 mg BID PO Last administered on 12/15/16 19:47; Start at 21:00 Rivastigmine (Exelon) 1 patch DAILY TD Last administered on 12/06/16 08:21; Start 11/30/16 at 09:00; Stop 12/06/16 at 12:19; Status DC Sertraline HCl (Zoloft) 25 mg DAILY PO Last administered on 12/06/16 08:20; Start 11/30/16 at 09:00; Stop 12/06/16 at 12:19; Status DC Olanzapine (Zyprexa Zydis) 2.5 mg PRN Q2HR PRN PO Psych Last administered on 15:13; Start 11/29/16 at 20:45 Calcium/Vitamin D (Oscal D 500mg/ 200uts) 1 tab DAILYWBKFT PO Last administered on 12/15/16 09:37; Start 11/30/16 at 08:00 Levothyroxine Sodium (Synthroid) 25 mcg DAILY06 PO Last administered on 06:28; Start 11/30/16 at 06:00 Raloxifene HCl (Evista) 60 mg DAILY PO Last administered on 12/15/16 09:37; Start 11/30/16 at 09:00 Vitamin B Complex 1 cap DAILY PO Last administered on 12/15/16 09:37; Start at 09:00 Iohexol (Omnipaque 300 Mg/ml) 75 ml 1X ONCE IV ; Start 11/29/16 at 22:45; Stop 11/29/16 at 22:46; Status DC Info (Do NOT chart on this entry -- for MONITORING) 1 each PRN DAILY PRN MC SEE COMMENTS; Start 11/29/16 at 22:45; Stop 12/01/16 at 22:44; Status DC Folic Acid (Folic Acid) 0.8 mg DAILY PO Last administered on 12/15/16 09:37; Start 11/30/16 at 09:00 Trazodone HCl (Desyrel) 50 mg PRN QHS PRN PO INSOMNIA, MAY REPEAT X1 Last administered on 12/13/16 01:48; Start 11/30/16 at 16:45 Amoxicillin (Amoxil) 500 mg [id number] PO Last administered on 12/08/16 12:33; Start 12/01/16 at 21:00; Stop 12/08/16 at 20:59; Status DC Mirtazapine (Remeron) 7.5 mg QHS PO Last administered on 12/15/16 19:47; Start 12/01/16 at 21:00 Hydroxyzine HCl (Atarax) 25 mg PRN Q2HR PRN PO ANXIETY / AGITATION Last administered on 12/10/16 15:11; Start 12/01/16 at 18:15 Vitamin D (Vitamin D3) 50,000 unit WEEKLY PO Last administered on 12/10/16 08: 32; Start 12/03/16 at 09:00 Quetiapine Fumarate (SEROquel) 12.5 mg BID PO Last administered on 12/04/16 09: 31; Start 12/02/16 at 21:00; Stop 12/04/16 at 18:23; Status DC Quetiapine Fumarate (SEROquel) 12.5 mg QID PO Last administered on 12/06/16 16: 33; Start 12/04/16 at 21:00; Stop 12/06/16 at 17:46; Status DC Sertraline HCl (Zoloft) 50 mg DAILY PO Last administered on 12/15/16 09:37; Start 12/07/16 at 09:00 Rivastigmine (Exelon) 1 patch DAILY TD Last administered on 12/15/16 09:38; Start 12/07/16 at 09:00 Olanzapine (Zyprexa Zydis) 2.5 mg BID PO ; Start 12/06/16 at 21:00; Stop 12/06/16 at 21:00; Status DC Olanzapine (Zyprexa Zydis) 2.5 mg BID92 PO ; Start 12/06/16 at 21:00; Status Cancel Olanzapine (Zyprexa Zydis) 2.5 mg BID92 PO Last administered on 12/07/16 13:36 ; Start 12/07/16 at 09:00; Stop 12/07/16 at 18:46; Status DC Quetiapine Fumarate (SEROquel) 25 mg QID PO Last administered on 12/15/16 19: 47; Start 12/07/16 at 21:00 Buspirone HCl (Buspar) 5 mg BID PO Last administered on 12/09/16 08:35; Start 12/07/16 at 21:00; Stop 12/09/16 at 18:31; Status DC Buspirone HCl (Buspar) 5 mg TID PO Last administered on 12/12/16 13:25; Start 12/09/16 at 21:00; Stop 12/12/16 at 18:03; Status DC Buspirone HCl (Buspar) 5 mg QID PO Last administered on 12/14/16 17:05; Start 12/12/16 at 21:00; Stop 12/14/16 at 18:46; Status DC Buspirone HCl (Buspar) 10 mg TID PO Last administered on 12/15/16 19:47; Start 12/14/16 at 21:00 Active Scripts Active Reported Zyprexa Zydis (Olanzapine) 10 Mg Tab.rapdis 10 Mg PO PRN Q4HRS PRN Zyprexa (Olanzapine) 2.5 Mg Tablet 2.5 Mg PO QHS Namenda (Memantine Hcl) 5 Mg Tablet 2.5 Mg PO QHS 4 Days Namenda (Memantine Hcl) 5 Mg Tablet 5 Mg PO DAILY 4 Days Synthroid (Levothyroxine Sodium) 25 Mcg Tablet 25 Mcg PO DAILY06 Zoloft (Sertraline Hcl) 25 Mg Tablet 25 Mg PO DAILY Oyster Shell 500 Mg + Vit D Tb (Calcium Carbonate/Vitamin D3) 1 Each Tablet 1 Tab PO DAILY Evista (Raloxifene Hcl) 60 Mg Tablet 60 Mg PO DAILY Gnp B-50 Complex Tablet (Vitamin B Complex/Folic Acid) 0.4 Mg Tablet.er 0.8 Mg PO DAILY Namenda Xr (Memantine Hcl) 7 Mg Cap.spr.24 7 Mg PO DAILY EXELON 4.6mg/24hr (Rivastigmine) 1 Each Patch.td24 1 Patch TD DAILY Diagnosis: Problems: (1) Mental status change (2) Anxiety disorder (3) Dementia in Alzheimer's disease with depression (4) Dementia, vascular, with delusions (5) Dementia, vascular, with depression (6) Dementia in Alzheimer's disease with delusions (7) Impulse control disorder YOGESH VELASQUEZ MD Dec 15, 2016 21:26
--- NOTE | 2016-12-15 22:42 | PN ---
DATE: 12/14/2016 SUBJECTIVE: This is a late entry for 12/14/2016, covers elements not covered in my initial note. The patient was seen individually evening of 12/14/2016. Per nursing report, the patient has been very agitated, hollering, restless, anxious, constantly moving, and shaking the table. Staff assisted her in walking for an extended period of time, which seemed to help a little bit with her anxiety and agitation. Received Zyprexa at 3:15 p.m. We will check another UA to make sure she does not have another UTI to account for the change in her presentation. REVIEW OF SYSTEMS: Ambulation impaired. No CV, , pulmonary, eye, or ENT system symptoms on review. MENTAL STATUS EXAM: Oriented to herself. Insight, judgment, recent and remote memory, attention, concentration, fund of knowledge poor, consistent with her diagnosis mentioned in my initial note. IMPRESSION: Major neurocognitive disorder, Alzheimer, vascular with depression, delusions and behavioral disturbance. Rest diagnoses unchanged. PLAN: Increase BuSpar from 5 mg 4 times a day to 10 mg 3 times a day. Continue Exelon patch, Namenda, Zoloft, Zyprexa p.r.n., trazodone, and Remeron along with Atarax p.r.n. and Seroquel 25 mg 4 times a day. Adjust further as clinically indicated. YOGESH VELASQUEZ MD DR: AMARJIT/mason JOB#: [id number] / [id number]
[2016-12-16] MEDS: LEVOTHYROXINE 25 MCG TABLET. PO SCH (05:38)
[2016-12-16 05:54] VITALS: BP 122/70
[2016-12-16] MEDS: SERTRALINE 50 MG TABLET. PO SCH (07:53)
[2016-12-16] MEDS: MEMANTINE 5 MG TABLET. PO SCH ×2 (07:53→19:21)
[2016-12-16] MEDS: QUEtiapine 25 MG TABLET. PO SCH ×4 (07:53→19:20)
[2016-12-16] MEDS: VITAMIN B COMPLEX CAPSULE. PO SCH (07:53)
[2016-12-16] MEDS: CALCIUM CARB/VIT D3 500/200 TABLET PO SCH (07:53)
[2016-12-16] MEDS: RIVASTIGMINE 9.5MG PATCH. TD SCH (07:53)
[2016-12-16] MEDS: FOLIC ACID 0.4 MG TABLET PO SCH (07:53)
[2016-12-16] MEDS: RALOXIFENE 60 MG TABLET. PO SCH (07:53)
[2016-12-16] MEDS: busPIRone 10 MG TABLET. PO SCH ×3 (07:53→19:20)
[2016-12-16] MEDS: OLANZAPINE ZYDIS 5 MG TAB.RAPDIS PO PRN (09:21)
[2016-12-16] MEDS: MAGNESIUM HYDROXIDE 2,400 MG/30 ML ORAL.SUSP. PO PRN (09:21)
[2016-12-16 15:51] VITALS: BP 125/75
[2016-12-16] MEDS: MIRTAZAPINE 7.5 MG TABLET. PO SCH (19:20)
--- NOTE | 2016-12-16 20:41 | PN ---
DATE: 12/15/2016 PSYCHIATRIC PROGRESS NOTE This is a late entry for 12/15/2016 covers elements not covered in my initial note. SUBJECTIVE: Per nursing report, the patient's UA has reflexed to culture and sensitivity. She has been walking independently with assistance from staff at times. Cognitively seems clearer, little less anxious, restless, but still confused. REVIEW OF SYSTEMS: No CV, , pulmonary, eye, ENT system symptoms on review. MENTAL STATUS EXAM: Oriented to herself. Insight, judgment, recent and remote memory, attention, concentration, fund of knowledge poor, consistent with her diagnosis as mentioned in my initial note. PLAN: Continue current psychotropics mentioned in my initial note, await urine EVIDENCE SPECIALIST. Make further adjustments as clinically indicated. MAN Jaclyn VELASQUEZ MD DR: AMARJIT/mason JOB#: [id number] / [id number]
--- NOTE | 2016-12-16 21:14 | PDOC ---
Exam Olivier Demential Exam: Olivier Note: Please also refer to the separate dictated note~for this date of service dictated separately.~Patient seen individually. Discussed the patient with Nursing staff reviewed the chart.~Reviewed interim history and current functioning. Reviewed vital signs,~Labs/ Radiology~and current medications noted below. Continue current treatment with the changes noted in the dictated addendum note Assessment: Vital Signs: Vital Signs Date Time Temp Pulse Resp B/P Pulse Ox O2 Delivery O2 Flow Rate FiO2 12/16/16 15:51 99.9 79 18 125/75 97 12/15/16 16:40 Room Air I&O Intake and Output 12/16/16 07:00 Intake Total 1200 ml Balance 1200 ml Intake Oral 1200 ml # Bowel Movements 1 Current Medications: Meds: Current Medications Diphenhydramine HCl (Benadryl) 50 mg 1X ONCE PO Last administered on 20:00; Start 11/29/16 at 20:00; Stop 11/29/16 at 20:11; Status DC Olanzapine (Zyprexa) 10 mg 1X ONCE PO Last administered on 11/29/16 20:05; Start 11/29/16 at 20:00; Stop 11/29/16 at 20:12; Status DC Lorazepam (Ativan) 1 mg 1X ONCE PO Last administered on 11/29/16 20:05; Start 11/29/16 at 20:00; Stop 11/29/16 at 20:11; Status DC Diphenhydramine HCl (Benadryl) 25 mg STK-MED ONCE PO ; Start 11/29/16 at 20:02; Stop 11/29/16 at 20:03; Status DC Cephalexin HCl (Keflex) 500 mg TID PO Last administered on 12/01/16 13:48; Start 11/29/16 at 21:00; Stop 12/01/16 at 14:15; Status DC Acetaminophen (Tylenol) 650 mg PRN Q6HRS PRN PO PAIN / TEMP Last administered on 12/16/16 15:40; Start 11/29/16 at 20:45 Multi-Ingredient Ointment (Analgesic [place]) 1 sagar PRN QID PRN TP MUSCLE PAIN; Start 11/29/16 at 20:45 Al Hydroxide/Mg Hydroxide (Mylanta Plus Xs) 15 ml PRN AFTMEALHC PRN PO DYSPEPSIA; Start 11/29/16 at 20:45 Magnesium Hydroxide (Milk Of Magnesia) 2,400 mg PRN QHS PRN PO CONSTIPATION Last administered on 12/16/16 09:21; Start 11/29/16 at 20:45 Memantine (Namenda) 5 mg BID PO Last administered on 12/16/16 19:21; Start at 21:00 Rivastigmine (Exelon) 1 patch DAILY TD Last administered on 12/06/16 08:21; Start 11/30/16 at 09:00; Stop 12/06/16 at 12:19; Status DC Sertraline HCl (Zoloft) 25 mg DAILY PO Last administered on 12/06/16 08:20; Start 11/30/16 at 09:00; Stop 12/06/16 at 12:19; Status DC Olanzapine (Zyprexa Zydis) 2.5 mg PRN Q2HR PRN PO Psych Last administered on 09:21; Start 11/29/16 at 20:45 Calcium/Vitamin D (Oscal D 500mg/ 200uts) 1 tab DAILYWBKFT PO Last administered on 12/16/16 07:53; Start 11/30/16 at 08:00 Levothyroxine Sodium (Synthroid) 25 mcg DAILY06 PO Last administered on 05:38; Start 11/30/16 at 06:00 Raloxifene HCl (Evista) 60 mg DAILY PO Last administered on 12/16/16 07:53; Start 11/30/16 at 09:00 Vitamin B Complex 1 cap DAILY PO Last administered on 12/16/16 07:53; Start at 09:00 Iohexol (Omnipaque 300 Mg/ml) 75 ml 1X ONCE IV ; Start 11/29/16 at 22:45; Stop 11/29/16 at 22:46; Status DC Info (Do NOT chart on this entry -- for MONITORING) 1 each PRN DAILY PRN MC SEE COMMENTS; Start 11/29/16 at 22:45; Stop 12/01/16 at 22:44; Status DC Folic Acid (Folic Acid) 0.8 mg DAILY PO Last administered on 12/16/16 07:53; Start 11/30/16 at 09:00 Trazodone HCl (Desyrel) 50 mg PRN QHS PRN PO INSOMNIA, MAY REPEAT X1 Last administered on 12/13/16 01:48; Start 11/30/16 at 16:45 Amoxicillin (Amoxil) 500 mg [id number] PO Last administered on 12/08/16 12:33; Start 12/01/16 at 21:00; Stop 12/08/16 at 20:59; Status DC Mirtazapine (Remeron) 7.5 mg QHS PO Last administered on 12/16/16 19:20; Start 12/01/16 at 21:00 Hydroxyzine HCl (Atarax) 25 mg PRN Q2HR PRN PO ANXIETY / AGITATION Last administered on 12/10/16 15:11; Start 12/01/16 at 18:15 Vitamin D (Vitamin D3) 50,000 unit WEEKLY PO Last administered on 12/10/16 08: 32; Start 12/03/16 at 09:00 Quetiapine Fumarate (SEROquel) 12.5 mg BID PO Last administered on 12/04/16 09: 31; Start 12/02/16 at 21:00; Stop 12/04/16 at 18:23; Status DC Quetiapine Fumarate (SEROquel) 12.5 mg QID PO Last administered on 12/06/16 16: 33; Start 12/04/16 at 21:00; Stop 12/06/16 at 17:46; Status DC Sertraline HCl (Zoloft) 50 mg DAILY PO Last administered on 12/16/16 07:53; Start 12/07/16 at 09:00 Rivastigmine (Exelon) 1 patch DAILY TD Last administered on 12/16/16 07:53; Start 12/07/16 at 09:00 Olanzapine (Zyprexa Zydis) 2.5 mg BID PO ; Start 12/06/16 at 21:00; Stop 12/06/16 at 21:00; Status DC Olanzapine (Zyprexa Zydis) 2.5 mg BID92 PO ; Start 12/06/16 at 21:00; Status Cancel Olanzapine (Zyprexa Zydis) 2.5 mg BID92 PO Last administered on 12/07/16 13:36 ; Start 12/07/16 at 09:00; Stop 12/07/16 at 18:46; Status DC Quetiapine Fumarate (SEROquel) 25 mg QID PO Last administered on 12/16/16 19: 20; Start 12/07/16 at 21:00 Buspirone HCl (Buspar) 5 mg BID PO Last administered on 12/09/16 08:35; Start 12/07/16 at 21:00; Stop 12/09/16 at 18:31; Status DC Buspirone HCl (Buspar) 5 mg TID PO Last administered on 12/12/16 13:25; Start 12/09/16 at 21:00; Stop 12/12/16 at 18:03; Status DC Buspirone HCl (Buspar) 5 mg QID PO Last administered on 12/14/16 17:05; Start 12/12/16 at 21:00; Stop 12/14/16 at 18:46; Status DC Buspirone HCl (Buspar) 10 mg TID PO Last administered on 12/16/16 19:20; Start 12/14/16 at 21:00 Active Scripts Active Reported Zyprexa Zydis (Olanzapine) 10 Mg Tab.rapdis 10 Mg PO PRN Q4HRS PRN Zyprexa (Olanzapine) 2.5 Mg Tablet 2.5 Mg PO QHS Namenda (Memantine Hcl) 5 Mg Tablet 2.5 Mg PO QHS 4 Days Namenda (Memantine Hcl) 5 Mg Tablet 5 Mg PO DAILY 4 Days Synthroid (Levothyroxine Sodium) 25 Mcg Tablet 25 Mcg PO DAILY06 Zoloft (Sertraline Hcl) 25 Mg Tablet 25 Mg PO DAILY Oyster Shell 500 Mg + Vit D Tb (Calcium Carbonate/Vitamin D3) 1 Each Tablet 1 Tab PO DAILY Evista (Raloxifene Hcl) 60 Mg Tablet 60 Mg PO DAILY Gnp B-50 Complex Tablet (Vitamin B Complex/Folic Acid) 0.4 Mg Tablet.er 0.8 Mg PO DAILY Namenda Xr (Memantine Hcl) 7 Mg Cap.spr.24 7 Mg PO DAILY EXELON 4.6mg/24hr (Rivastigmine) 1 Each Patch.td24 1 Patch TD DAILY Diagnosis: Problems: (1) Mental status change (2) Anxiety disorder (3) Dementia in Alzheimer's disease with depression (4) Dementia, vascular, with delusions (5) Dementia, vascular, with depression (6) Dementia in Alzheimer's disease with delusions (7) Impulse control disorder YOGESH VELASQUEZ MD Dec 16, 2016 21:14
[2016-12-17 05:58] VITALS: BP 118/76
[2016-12-17] MEDS: LEVOTHYROXINE 25 MCG TABLET. PO SCH (06:13)
[2016-12-17] MEDS: busPIRone 10 MG TABLET. PO SCH ×3 (08:46→19:21)
[2016-12-17] MEDS: RIVASTIGMINE 9.5MG PATCH. TD SCH (08:46)
[2016-12-17] MEDS: VITAMIN B COMPLEX CAPSULE. PO SCH (08:46)
[2016-12-17] MEDS: QUEtiapine 25 MG TABLET. PO SCH ×4 (08:46→19:22)
[2016-12-17] MEDS: RALOXIFENE 60 MG TABLET. PO SCH (08:46)
[2016-12-17] MEDS: SERTRALINE 50 MG TABLET. PO SCH (08:46)
[2016-12-17] MEDS: FOLIC ACID 0.4 MG TABLET PO SCH (08:46)
[2016-12-17] MEDS: CALCIUM CARB/VIT D3 500/200 TABLET PO SCH (08:46)
[2016-12-17] MEDS: MEMANTINE 5 MG TABLET. PO SCH ×2 (08:46→19:22)
[2016-12-17] MEDS: OLANZAPINE ZYDIS 5 MG TAB.RAPDIS PO PRN ×2 (08:48→16:07)
[2016-12-17] MEDS: CHOLECALCIFEROL (VITAMIN D3) 50,000 UNIT CAPSULE PO SCH (08:48)
[2016-12-17 15:47] VITALS: BP 113/70
[2016-12-17] MEDS: MIRTAZAPINE 7.5 MG TABLET. PO SCH (19:22)
[2016-12-17] MEDS: DOCUSATE SODIUM 100 MG CAPSULE PO SCH (20:04)
--- NOTE | 2016-12-17 22:06 | PDOC ---
Exam Olivier Demential Exam: Olivier Note: Please also refer to the separate dictated note~for this date of service dictated separately.~Patient seen individually. Discussed the patient with Nursing staff reviewed the chart.~Reviewed interim history and current functioning. Reviewed vital signs,~Labs/ Radiology~and current medications noted below. Continue current treatment with the changes noted in the dictated addendum note Assessment: Vital Signs: Vital Signs Date Time Temp Pulse Resp B/P Pulse Ox O2 Delivery O2 Flow Rate FiO2 12/17/16 15:47 98.0 91 18 113/70 94 Room Air I&O Intake and Output 12/17/16 07:00 Intake Total 1200 ml Balance 1200 ml Intake Oral 1200 ml Current Medications: Meds: Current Medications Diphenhydramine HCl (Benadryl) 50 mg 1X ONCE PO Last administered on 20:00; Start 11/29/16 at 20:00; Stop 11/29/16 at 20:11; Status DC Olanzapine (Zyprexa) 10 mg 1X ONCE PO Last administered on 11/29/16 20:05; Start 11/29/16 at 20:00; Stop 11/29/16 at 20:12; Status DC Lorazepam (Ativan) 1 mg 1X ONCE PO Last administered on 11/29/16 20:05; Start 11/29/16 at 20:00; Stop 11/29/16 at 20:11; Status DC Diphenhydramine HCl (Benadryl) 25 mg STK-MED ONCE PO ; Start 11/29/16 at 20:02; Stop 11/29/16 at 20:03; Status DC Cephalexin HCl (Keflex) 500 mg TID PO Last administered on 12/01/16 13:48; Start 11/29/16 at 21:00; Stop 12/01/16 at 14:15; Status DC Acetaminophen (Tylenol) 650 mg PRN Q6HRS PRN PO PAIN / TEMP Last administered on 12/16/16 15:40; Start 11/29/16 at 20:45 Multi-Ingredient Ointment (Analgesic [place]) 1 sagar PRN QID PRN TP MUSCLE PAIN; Start 11/29/16 at 20:45 Al Hydroxide/Mg Hydroxide (Mylanta Plus Xs) 15 ml PRN AFTMEALHC PRN PO DYSPEPSIA; Start 11/29/16 at 20:45 Magnesium Hydroxide (Milk Of Magnesia) 2,400 mg PRN QHS PRN PO CONSTIPATION Last administered on 12/16/16 09:21; Start 11/29/16 at 20:45 Memantine (Namenda) 5 mg BID PO Last administered on 12/17/16 19:22; Start at 21:00 Rivastigmine (Exelon) 1 patch DAILY TD Last administered on 12/06/16 08:21; Start 11/30/16 at 09:00; Stop 12/06/16 at 12:19; Status DC Sertraline HCl (Zoloft) 25 mg DAILY PO Last administered on 12/06/16 08:20; Start 11/30/16 at 09:00; Stop 12/06/16 at 12:19; Status DC Olanzapine (Zyprexa Zydis) 2.5 mg PRN Q2HR PRN PO Psych Last administered on 16:07; Start 11/29/16 at 20:45 Calcium/Vitamin D (Oscal D 500mg/ 200uts) 1 tab DAILYWBKFT PO Last administered on 12/17/16 08:46; Start 11/30/16 at 08:00 Levothyroxine Sodium (Synthroid) 25 mcg DAILY06 PO Last administered on 06:13; Start 11/30/16 at 06:00 Raloxifene HCl (Evista) 60 mg DAILY PO Last administered on 12/17/16 08:46; Start 11/30/16 at 09:00 Vitamin B Complex 1 cap DAILY PO Last administered on 12/17/16 08:46; Start at 09:00 Iohexol (Omnipaque 300 Mg/ml) 75 ml 1X ONCE IV ; Start 11/29/16 at 22:45; Stop 11/29/16 at 22:46; Status DC Info (Do NOT chart on this entry -- for MONITORING) 1 each PRN DAILY PRN MC SEE COMMENTS; Start 11/29/16 at 22:45; Stop 12/01/16 at 22:44; Status DC Folic Acid (Folic Acid) 0.8 mg DAILY PO Last administered on 12/17/16 08:46; Start 11/30/16 at 09:00 Trazodone HCl (Desyrel) 50 mg PRN QHS PRN PO INSOMNIA, MAY REPEAT X1 Last administered on 12/13/16 01:48; Start 11/30/16 at 16:45 Amoxicillin (Amoxil) 500 mg [id number] PO Last administered on 12/08/16 12:33; Start 12/01/16 at 21:00; Stop 12/08/16 at 20:59; Status DC Mirtazapine (Remeron) 7.5 mg QHS PO Last administered on 12/17/16 19:22; Start 12/01/16 at 21:00 Hydroxyzine HCl (Atarax) 25 mg PRN Q2HR PRN PO ANXIETY / AGITATION Last administered on 12/10/16 15:11; Start 12/01/16 at 18:15 Vitamin D (Vitamin D3) 50,000 unit WEEKLY PO Last administered on 12/17/16 08: 48; Start 12/03/16 at 09:00 Quetiapine Fumarate (SEROquel) 12.5 mg BID PO Last administered on 12/04/16 09: 31; Start 12/02/16 at 21:00; Stop 12/04/16 at 18:23; Status DC Quetiapine Fumarate (SEROquel) 12.5 mg QID PO Last administered on 12/06/16 16: 33; Start 12/04/16 at 21:00; Stop 12/06/16 at 17:46; Status DC Sertraline HCl (Zoloft) 50 mg DAILY PO Last administered on 12/17/16 08:46; Start 12/07/16 at 09:00 Rivastigmine (Exelon) 1 patch DAILY TD Last administered on 12/17/16 08:46; Start 12/07/16 at 09:00 Olanzapine (Zyprexa Zydis) 2.5 mg BID PO ; Start 12/06/16 at 21:00; Stop 12/06/16 at 21:00; Status DC Olanzapine (Zyprexa Zydis) 2.5 mg BID92 PO ; Start 12/06/16 at 21:00; Status Cancel Olanzapine (Zyprexa Zydis) 2.5 mg BID92 PO Last administered on 12/07/16 13:36 ; Start 12/07/16 at 09:00; Stop 12/07/16 at 18:46; Status DC Quetiapine Fumarate (SEROquel) 25 mg QID PO Last administered on 12/17/16 19: 22; Start 12/07/16 at 21:00 Buspirone HCl (Buspar) 5 mg BID PO Last administered on 12/09/16 08:35; Start 12/07/16 at 21:00; Stop 12/09/16 at 18:31; Status DC Buspirone HCl (Buspar) 5 mg TID PO Last administered on 12/12/16 13:25; Start 12/09/16 at 21:00; Stop 12/12/16 at 18:03; Status DC Buspirone HCl (Buspar) 5 mg QID PO Last administered on 12/14/16 17:05; Start 12/12/16 at 21:00; Stop 12/14/16 at 18:46; Status DC Buspirone HCl (Buspar) 10 mg TID PO Last administered on 12/17/16 19:21; Start 12/14/16 at 21:00 Docusate Sodium (Colace) 100 mg BID PO Last administered on 12/17/16 20:04; Start 12/17/16 at 21:00 Polyethylene Glycol (miraLAX) 17 gm DAILY PO ; Start 12/18/16 at 09:00 Active Scripts Active Reported Zyprexa Zydis (Olanzapine) 10 Mg Tab.rapdis 10 Mg PO PRN Q4HRS PRN Zyprexa (Olanzapine) 2.5 Mg Tablet 2.5 Mg PO QHS Namenda (Memantine Hcl) 5 Mg Tablet 2.5 Mg PO QHS 4 Days Namenda (Memantine Hcl) 5 Mg Tablet 5 Mg PO DAILY 4 Days Synthroid (Levothyroxine Sodium) 25 Mcg Tablet 25 Mcg PO DAILY06 Zoloft (Sertraline Hcl) 25 Mg Tablet 25 Mg PO DAILY Oyster Shell 500 Mg + Vit D Tb (Calcium Carbonate/Vitamin D3) 1 Each Tablet 1 Tab PO DAILY Evista (Raloxifene Hcl) 60 Mg Tablet 60 Mg PO DAILY Gnp B-50 Complex Tablet (Vitamin B Complex/Folic Acid) 0.4 Mg Tablet.er 0.8 Mg PO DAILY Namenda Xr (Memantine Hcl) 7 Mg Cap.spr.24 7 Mg PO DAILY EXELON 4.6mg/24hr (Rivastigmine) 1 Each Patch.td24 1 Patch TD DAILY Diagnosis: Problems: (1) Impulse control disorder (2) Dementia in Alzheimer's disease with delusions (3) Dementia, vascular, with delusions (4) Dementia, vascular, with depression (5) Dementia in Alzheimer's disease with depression (6) Anxiety disorder YOGESH VELASQUEZ MD Dec 17, 2016 22:06
--- NOTE | 2016-12-17 23:21 | PN ---
DATE: 12/16/2016 This is a late entry for 12/16/2016 covers elements not covered in my initial note. SUBJECTIVE: Per nursing report, the patient has been restless, intermittently hallucinating, very confused, received Zyprexa at 09:00 a.m. Urine culture sensitivity is pending and this could be worsening her agitation. She was mildly febrile in the evening at 04:00 p.m. I will defer to Dr. Carson to follow medically. REVIEW OF SYSTEMS: Ambulation impaired. No CV, , pulmonary, eye system symptoms on review. MENTAL STATUS EXAM: Oriented to herself. Insight, judgment, recent and remote memory, attention, concentration, fund of knowledge poor, consistent with her diagnosis as mentioned in my initial note. PLAN: Await urine C and S and treat if positive since this could be worsening her agitation. Maintain Exelon patch, Namenda, Zoloft, Zyprexa p.r.n., trazodone, Remeron, Atarax p.r.n., Seroquel and BuSpar. Adjust further as clinically indicated. MAN Jaclyn VELASQUEZ MD DR: AMARJIT/mason JOB#: [id number] / [id number]
[2016-12-18] MEDS: LEVOTHYROXINE 25 MCG TABLET. PO SCH (05:31)
[2016-12-18 05:43] VITALS: BP 152/83
[2016-12-18] MEDS: CALCIUM CARB/VIT D3 500/200 TABLET PO SCH (08:23)
[2016-12-18] MEDS: RIVASTIGMINE 9.5MG PATCH. TD SCH (08:23)
[2016-12-18] MEDS: DOCUSATE SODIUM 100 MG CAPSULE PO SCH ×2 (08:23→19:24)
[2016-12-18] MEDS: FOLIC ACID 0.4 MG TABLET PO SCH (08:24)
[2016-12-18] MEDS: busPIRone 10 MG TABLET. PO SCH ×3 (08:24→19:24)
[2016-12-18] MEDS: QUEtiapine 25 MG TABLET. PO SCH ×4 (08:24→19:24)
[2016-12-18] MEDS: RALOXIFENE 60 MG TABLET. PO SCH (08:24)
[2016-12-18] MEDS: MEMANTINE 5 MG TABLET. PO SCH ×2 (08:24→19:24)
[2016-12-18] MEDS: VITAMIN B COMPLEX CAPSULE. PO SCH (08:24)
[2016-12-18] MEDS: SERTRALINE 50 MG TABLET. PO SCH (08:25)
[2016-12-18] MEDS: POLYETHYLENE GLYCOL 3350 17 GM PACKET. PO SCH (09:15)
[2016-12-18 11:51] LABS: BILIRUBIN,URINE NEG (NEG); CLARITY,URINE CLEAR; COLOR,URINE YELLOW; GLUCOSE,URINE NEG (NEG); NITRITE,URINE NEG (NEG); UROBILINOGEN,URINE 0.2 mg/dL (0.2 mg/dL)
[2016-12-18 11:52] LABS: BACTERIA,URINE FEW /HPF (0-FEW); HYALINE CASTS, URINE FEW /HPF; SQUAMOUS EPITHELIAL CELL,UR FEW /LPF
[2016-12-18 15:39] VITALS: BP 144/84
[2016-12-18] MEDS: HYDROXYZINE HCL 25 MG TABLET PO PRN (16:56)
[2016-12-18] MEDS: MIRTAZAPINE 7.5 MG TABLET. PO SCH (19:24)
[2016-12-18] MEDS: MELATONIN 3 MG TABLET PO SCH (20:15)
--- NOTE | 2016-12-18 21:14 | PDOC ---
Exam Olivier Demential Exam: Olivier Note: Please also refer to the separate dictated note~for this date of service dictated separately.~Patient seen individually. Discussed the patient with Nursing staff reviewed the chart.~Reviewed interim history and current functioning. Reviewed vital signs,~Labs/ Radiology~and current medications noted below. Continue current treatment with the changes noted in the dictated addendum note Assessment: Vital Signs: Vital Signs Date Time Temp Pulse Resp B/P Pulse Ox O2 Delivery O2 Flow Rate FiO2 12/18/16 15:39 98.7 88 16 144/84 97 12/17/16 15:47 Room Air I&O Intake and Output 12/18/16 07:00 Intake Total 1080 ml Balance 1080 ml Intake Oral 1080 ml # Bowel Movements 1 Labs: Laboratory Tests Test 12/18/16 11:22 Urine Collection Type U cath Urine Color Yellow Urine Clarity Clear Urine pH 6.5 Urine Specific [place] 1.020 Urine Protein Trace (NEG-TRACE) Urine Glucose (UA) Negmg/dL (NEG) Urine Ketones (Stick) Negmg/dL (NEG) Urine Blood Neg (NEG) Urine Nitrite Neg (NEG) Urine Bilirubin Neg (NEG) Urine Urobilinogen Dipstick 0.2mg/dL (0.2 mg/dL) Urine Leukocyte Esterase Neg (NEG) Urine RBC 1-2/HPF (0-2) Urine WBC 1-4/HPF (0-4) Urine Squamous Epithelial Cells Few/LPF Urine Bacteria Few/HPF (0-FEW) Urine Hyaline Casts Few/HPF Urine Mucus Slight/LPF Current Medications: Meds: Current Medications Diphenhydramine HCl (Benadryl) 50 mg 1X ONCE PO Last administered on 20:00; Start 11/29/16 at 20:00; Stop 11/29/16 at 20:11; Status DC Olanzapine (Zyprexa) 10 mg 1X ONCE PO Last administered on 11/29/16 20:05; Start 11/29/16 at 20:00; Stop 11/29/16 at 20:12; Status DC Lorazepam (Ativan) 1 mg 1X ONCE PO Last administered on 11/29/16 20:05; Start 11/29/16 at 20:00; Stop 11/29/16 at 20:11; Status DC Diphenhydramine HCl (Benadryl) 25 mg STK-MED ONCE PO ; Start 11/29/16 at 20:02; Stop 11/29/16 at 20:03; Status DC Cephalexin HCl (Keflex) 500 mg TID PO Last administered on 12/01/16 13:48; Start 11/29/16 at 21:00; Stop 12/01/16 at 14:15; Status DC Acetaminophen (Tylenol) 650 mg PRN Q6HRS PRN PO PAIN / TEMP Last administered on 12/16/16 15:40; Start 11/29/16 at 20:45 Multi-Ingredient Ointment (Analgesic [place]) 1 sagar PRN QID PRN TP MUSCLE PAIN; Start 11/29/16 at 20:45 Al Hydroxide/Mg Hydroxide (Mylanta Plus Xs) 15 ml PRN AFTMEALHC PRN PO DYSPEPSIA; Start 11/29/16 at 20:45 Magnesium Hydroxide (Milk Of Magnesia) 2,400 mg PRN QHS PRN PO CONSTIPATION Last administered on 12/16/16 09:21; Start 11/29/16 at 20:45 Memantine (Namenda) 5 mg BID PO Last administered on 12/18/16 19:24; Start at 21:00 Rivastigmine (Exelon) 1 patch DAILY TD Last administered on 12/06/16 08:21; Start 11/30/16 at 09:00; Stop 12/06/16 at 12:19; Status DC Sertraline HCl (Zoloft) 25 mg DAILY PO Last administered on 12/06/16 08:20; Start 11/30/16 at 09:00; Stop 12/06/16 at 12:19; Status DC Olanzapine (Zyprexa Zydis) 2.5 mg PRN Q2HR PRN PO Psych Last administered on 16:07; Start 11/29/16 at 20:45 Calcium/Vitamin D (Oscal D 500mg/ 200uts) 1 tab DAILYWBKFT PO Last administered on 12/18/16 08:23; Start 11/30/16 at 08:00 Levothyroxine Sodium (Synthroid) 25 mcg DAILY06 PO Last administered on 05:31; Start 11/30/16 at 06:00 Raloxifene HCl (Evista) 60 mg DAILY PO Last administered on 12/18/16 08:24; Start 11/30/16 at 09:00 Vitamin B Complex 1 cap DAILY PO Last administered on 12/18/16 08:24; Start at 09:00 Iohexol (Omnipaque 300 Mg/ml) 75 ml 1X ONCE IV ; Start 11/29/16 at 22:45; Stop 11/29/16 at 22:46; Status DC Info (Do NOT chart on this entry -- for MONITORING) 1 each PRN DAILY PRN MC SEE COMMENTS; Start 11/29/16 at 22:45; Stop 12/01/16 at 22:44; Status DC Folic Acid (Folic Acid) 0.8 mg DAILY PO Last administered on 12/18/16 08:24; Start 11/30/16 at 09:00 Trazodone HCl (Desyrel) 50 mg PRN QHS PRN PO INSOMNIA, MAY REPEAT X1 Last administered on 12/13/16 01:48; Start 11/30/16 at 16:45 Amoxicillin (Amoxil) 500 mg [id number] PO Last administered on 12/08/16 12:33; Start 12/01/16 at 21:00; Stop 12/08/16 at 20:59; Status DC Mirtazapine (Remeron) 7.5 mg QHS PO Last administered on 12/18/16 19:24; Start 12/01/16 at 21:00 Hydroxyzine HCl (Atarax) 25 mg PRN Q2HR PRN PO ANXIETY / AGITATION Last administered on 12/18/16 16:56; Start 12/01/16 at 18:15 Vitamin D (Vitamin D3) 50,000 unit WEEKLY PO Last administered on 12/17/16 08: 48; Start 12/03/16 at 09:00 Quetiapine Fumarate (SEROquel) 12.5 mg BID PO Last administered on 12/04/16 09: 31; Start 12/02/16 at 21:00; Stop 12/04/16 at 18:23; Status DC Quetiapine Fumarate (SEROquel) 12.5 mg QID PO Last administered on 12/06/16 16: 33; Start 12/04/16 at 21:00; Stop 12/06/16 at 17:46; Status DC Sertraline HCl (Zoloft) 50 mg DAILY PO Last administered on 12/18/16 08:25; Start 12/07/16 at 09:00 Rivastigmine (Exelon) 1 patch DAILY TD Last administered on 12/18/16 08:23; Start 12/07/16 at 09:00 Olanzapine (Zyprexa Zydis) 2.5 mg BID PO ; Start 12/06/16 at 21:00; Stop 12/06/16 at 21:00; Status DC Olanzapine (Zyprexa Zydis) 2.5 mg BID92 PO ; Start 12/06/16 at 21:00; Status Cancel Olanzapine (Zyprexa Zydis) 2.5 mg BID92 PO Last administered on 12/07/16 13:36 ; Start 12/07/16 at 09:00; Stop 12/07/16 at 18:46; Status DC Quetiapine Fumarate (SEROquel) 25 mg QID PO Last administered on 12/18/16 19: 24; Start 12/07/16 at 21:00 Buspirone HCl (Buspar) 5 mg BID PO Last administered on 12/09/16 08:35; Start 12/07/16 at 21:00; Stop 12/09/16 at 18:31; Status DC Buspirone HCl (Buspar) 5 mg TID PO Last administered on 12/12/16 13:25; Start 12/09/16 at 21:00; Stop 12/12/16 at 18:03; Status DC Buspirone HCl (Buspar) 5 mg QID PO Last administered on 12/14/16 17:05; Start 12/12/16 at 21:00; Stop 12/14/16 at 18:46; Status DC Buspirone HCl (Buspar) 10 mg TID PO Last administered on 12/18/16 19:24; Start 12/14/16 at 21:00 Docusate Sodium (Colace) 100 mg BID PO Last administered on 12/18/16 19:24; Start 12/17/16 at 21:00 Polyethylene Glycol (miraLAX) 17 gm DAILY PO Last administered on 12/18/16 09: 15; Start 12/18/16 at 09:00 Melatonin 3 mg QHS PO Last administered on 12/18/16t 20:15; Start 12/18/16 at 21:00 Active Scripts Active Reported Zyprexa Zydis (Olanzapine) 10 Mg Tab.rapdis 10 Mg PO PRN Q4HRS PRN Zyprexa (Olanzapine) 2.5 Mg Tablet 2.5 Mg PO QHS Namenda (Memantine Hcl) 5 Mg Tablet 2.5 Mg PO QHS 4 Days Namenda (Memantine Hcl) 5 Mg Tablet 5 Mg PO DAILY 4 Days Synthroid (Levothyroxine Sodium) 25 Mcg Tablet 25 Mcg PO DAILY06 Zoloft (Sertraline Hcl) 25 Mg Tablet 25 Mg PO DAILY Oyster Shell 500 Mg + Vit D Tb (Calcium Carbonate/Vitamin D3) 1 Each Tablet 1 Tab PO DAILY Evista (Raloxifene Hcl) 60 Mg Tablet 60 Mg PO DAILY Gnp B-50 Complex Tablet (Vitamin B Complex/Folic Acid) 0.4 Mg Tablet.er 0.8 Mg PO DAILY Namenda Xr (Memantine Hcl) 7 Mg Cap.spr.24 7 Mg PO DAILY EXELON 4.6mg/24hr (Rivastigmine) 1 Each Patch.td24 1 Patch TD DAILY Diagnosis: Problems: (1) Mental status change (2) Anxiety disorder (3) Dementia in Alzheimer's disease with depression (4) Dementia, vascular, with delusions (5) Dementia, vascular, with depression (6) Dementia in Alzheimer's disease with delusions (7) Impulse control disorder YOGESH VELASQUEZ MD Dec 18, 2016 21:14
[2016-12-19] MEDS: LEVOTHYROXINE 25 MCG TABLET. PO SCH (05:38)
[2016-12-19 06:12] VITALS: BP 136/87
[2016-12-19] MEDS: RALOXIFENE 60 MG TABLET. PO SCH (08:16)
[2016-12-19] MEDS: FOLIC ACID 0.4 MG TABLET PO SCH (08:16)
[2016-12-19] MEDS: VITAMIN B COMPLEX CAPSULE. PO SCH (08:16)
[2016-12-19] MEDS: busPIRone 10 MG TABLET. PO SCH ×3 (08:17→19:47)
[2016-12-19] MEDS: MEMANTINE 5 MG TABLET. PO SCH ×2 (08:17→19:47)
[2016-12-19] MEDS: DOCUSATE SODIUM 100 MG CAPSULE PO SCH ×2 (08:17→19:47)
[2016-12-19] MEDS: CALCIUM CARB/VIT D3 500/200 TABLET PO SCH (08:17)
[2016-12-19] MEDS: POLYETHYLENE GLYCOL 3350 17 GM PACKET. PO SCH (08:17)
[2016-12-19] MEDS: QUEtiapine 25 MG TABLET. PO SCH ×4 (08:17→19:47)
[2016-12-19] MEDS: SERTRALINE 50 MG TABLET. PO SCH (08:17)
[2016-12-19] MEDS: RIVASTIGMINE 9.5MG PATCH. TD SCH (08:18)
[2016-12-19] MEDS: OLANZAPINE ZYDIS 5 MG TAB.RAPDIS PO PRN (08:32)
--- NOTE | 2016-12-19 11:57 | PN ---
DATE: 12/18/2016 PSYCHIATRIC PROGRESS NOTE This is a late entry for 12/18/2016, covers elements not covered in my initial note. SUBJECTIVE: The patient was staffed at treatment team meeting with entire team With the patient's , Ty attending morning of 12/18/2016, seen individually evening of 12/18/2016. The patient is sleeping poorly 1-1/2 hours. We will add melatonin 3 mg at bedtime. UA is contaminated. We will straight cath to make sure UTI is not worsening her intermittent restlessness. REVIEW OF SYSTEMS: Ambulation impaired. No CV, , pulmonary, eye, ENT system symptoms on review. Reliability poor. MENTAL STATUS EXAM: Oriented to herself. Insight, judgment, recent and remote memory, attention, concentration, fund of knowledge poor, consistent with her diagnoses mentioned in my initial note. IMPRESSION: Major neurocognitive disorder, Alzheimer, vascular with depression, delusion, behavioral disturbance. Rest diagnoses unchanged. Rule out urinary tract infection. PLAN: Maintain Exelon, Namenda, Zyprexa p.r.n., trazodone, Remeron 7.5 at bedtime, melatonin added 3 mg at bedtime, straight cath for UTI, Atarax, Seroquel and BuSpar will be continued at current dosage. YOGESH VELASQUEZ MD DR: AMARJIT/mason JOB#: [id number] / [id number]
--- NOTE | 2016-12-19 12:09 | PN ---
DATE: 12/17/2016 This is a late entry for 12/17/2016, covers elements not covered in my initial note. SUBJECTIVE: Per nursing report, the patient is a little anxious, restless, received Zyprexa p.r.n. at 9 a.m. and 4 p.m. She walks with assistance from staff and this seems to help her anxiety. She is constipated. This is being treated symptomatically with Colace and MiraLax. She slept about 5 hours. REVIEW OF SYSTEMS: Ambulation impaired. No CV, , pulmonary, eye, ENT system symptoms on review. Reliability poor. MENTAL STATUS EXAM: Oriented to herself. Insight, judgment, recent and remote memory, attention, concentration, fund of knowledge poor, consistent with her diagnosis mentioned in my initial note. PLAN: Continue current psychotropics mentioned in my initial note. Adjust further as clinically indicated. Urine, [employer] awaited. If it is contaminated, we may need a straight cath since that could be worsening her intermittent restlessness. MAN Jaclyn VELASQUEZ MD DR: AMARJIT/mason JOB#: [id number] / [id number]
[2016-12-19 15:50] VITALS: BP 112/69
[2016-12-19] MEDS: MELATONIN 3 MG TABLET PO SCH (19:47)
[2016-12-19] MEDS: MIRTAZAPINE 7.5 MG TABLET. PO SCH (19:47)
--- NOTE | 2016-12-19 21:19 | PDOC ---
Exam Olivier Demential Exam: Olivier Note: Please also refer to the separate dictated note~for this date of service dictated separately.~Patient seen individually. Discussed the patient with Nursing staff reviewed the chart.~Reviewed interim history and current functioning. Reviewed vital signs,~Labs/ Radiology~and current medications noted below. Continue current treatment with the changes noted in the dictated addendum note Assessment: Vital Signs: Vital Signs Date Time Temp Pulse Resp B/P Pulse Ox O2 Delivery O2 Flow Rate FiO2 12/19/16 15:50 97.4 73 18 112/69 97 12/17/16 15:47 Room Air I&O Intake and Output 12/19/16 07:00 Intake Total 720 ml Balance 720 ml Intake Oral 720 ml # Bowel Movements 1 Current Medications: Meds: Current Medications Diphenhydramine HCl (Benadryl) 50 mg 1X ONCE PO Last administered on 20:00; Start 11/29/16 at 20:00; Stop 11/29/16 at 20:11; Status DC Olanzapine (Zyprexa) 10 mg 1X ONCE PO Last administered on 11/29/16 20:05; Start 11/29/16 at 20:00; Stop 11/29/16 at 20:12; Status DC Lorazepam (Ativan) 1 mg 1X ONCE PO Last administered on 11/29/16 20:05; Start 11/29/16 at 20:00; Stop 11/29/16 at 20:11; Status DC Diphenhydramine HCl (Benadryl) 25 mg STK-MED ONCE PO ; Start 11/29/16 at 20:02; Stop 11/29/16 at 20:03; Status DC Cephalexin HCl (Keflex) 500 mg TID PO Last administered on 12/01/16 13:48; Start 11/29/16 at 21:00; Stop 12/01/16 at 14:15; Status DC Acetaminophen (Tylenol) 650 mg PRN Q6HRS PRN PO PAIN / TEMP Last administered on 12/16/16 15:40; Start 11/29/16 at 20:45 Multi-Ingredient Ointment (Analgesic [place]) 1 sagar PRN QID PRN TP MUSCLE PAIN; Start 11/29/16 at 20:45 Al Hydroxide/Mg Hydroxide (Mylanta Plus Xs) 15 ml PRN AFTMEALHC PRN PO DYSPEPSIA; Start 11/29/16 at 20:45 Magnesium Hydroxide (Milk Of Magnesia) 2,400 mg PRN QHS PRN PO CONSTIPATION Last administered on 12/16/16 09:21; Start 11/29/16 at 20:45 Memantine (Namenda) 5 mg BID PO Last administered on 12/19/16 19:47; Start at 21:00 Rivastigmine (Exelon) 1 patch DAILY TD Last administered on 12/06/16 08:21; Start 11/30/16 at 09:00; Stop 12/06/16 at 12:19; Status DC Sertraline HCl (Zoloft) 25 mg DAILY PO Last administered on 12/06/16 08:20; Start 11/30/16 at 09:00; Stop 12/06/16 at 12:19; Status DC Olanzapine (Zyprexa Zydis) 2.5 mg PRN Q2HR PRN PO Psych Last administered on 08:32; Start 11/29/16 at 20:45 Calcium/Vitamin D (Oscal D 500mg/ 200uts) 1 tab DAILYWBKFT PO Last administered on 12/19/16 08:17; Start 11/30/16 at 08:00 Levothyroxine Sodium (Synthroid) 25 mcg DAILY06 PO Last administered on 05:38; Start 11/30/16 at 06:00 Raloxifene HCl (Evista) 60 mg DAILY PO Last administered on 12/19/16 08:16; Start 11/30/16 at 09:00 Vitamin B Complex 1 cap DAILY PO Last administered on 12/19/16 08:16; Start at 09:00 Iohexol (Omnipaque 300 Mg/ml) 75 ml 1X ONCE IV ; Start 11/29/16 at 22:45; Stop 11/29/16 at 22:46; Status DC Info (Do NOT chart on this entry -- for MONITORING) 1 each PRN DAILY PRN MC SEE COMMENTS; Start 11/29/16 at 22:45; Stop 12/01/16 at 22:44; Status DC Folic Acid (Folic Acid) 0.8 mg DAILY PO Last administered on 12/19/16 08:16; Start 11/30/16 at 09:00 Trazodone HCl (Desyrel) 50 mg PRN QHS PRN PO INSOMNIA, MAY REPEAT X1 Last administered on 12/13/16 01:48; Start 11/30/16 at 16:45 Amoxicillin (Amoxil) 500 mg [id number] PO Last administered on 12/08/16 12:33; Start 12/01/16 at 21:00; Stop 12/08/16 at 20:59; Status DC Mirtazapine (Remeron) 7.5 mg QHS PO Last administered on 12/19/16 19:47; Start 12/01/16 at 21:00 Hydroxyzine HCl (Atarax) 25 mg PRN Q2HR PRN PO ANXIETY / AGITATION Last administered on 12/18/16 16:56; Start 12/01/16 at 18:15 Vitamin D (Vitamin D3) 50,000 unit WEEKLY PO Last administered on 12/17/16 08: 48; Start 12/03/16 at 09:00 Quetiapine Fumarate (SEROquel) 12.5 mg BID PO Last administered on 12/04/16 09: 31; Start 12/02/16 at 21:00; Stop 12/04/16 at 18:23; Status DC Quetiapine Fumarate (SEROquel) 12.5 mg QID PO Last administered on 12/06/16 16: 33; Start 12/04/16 at 21:00; Stop 12/06/16 at 17:46; Status DC Sertraline HCl (Zoloft) 50 mg DAILY PO Last administered on 12/19/16 08:17; Start 12/07/16 at 09:00 Rivastigmine (Exelon) 1 patch DAILY TD Last administered on 12/19/16 08:18; Start 12/07/16 at 09:00 Olanzapine (Zyprexa Zydis) 2.5 mg BID PO ; Start 12/06/16 at 21:00; Stop 12/06/16 at 21:00; Status DC Olanzapine (Zyprexa Zydis) 2.5 mg BID92 PO ; Start 12/06/16 at 21:00; Status Cancel Olanzapine (Zyprexa Zydis) 2.5 mg BID92 PO Last administered on 12/07/16 13:36 ; Start 12/07/16 at 09:00; Stop 12/07/16 at 18:46; Status DC Quetiapine Fumarate (SEROquel) 25 mg QID PO Last administered on 12/19/16 19: 47; Start 12/07/16 at 21:00 Buspirone HCl (Buspar) 5 mg BID PO Last administered on 12/09/16 08:35; Start 12/07/16 at 21:00; Stop 12/09/16 at 18:31; Status DC Buspirone HCl (Buspar) 5 mg TID PO Last administered on 12/12/16 13:25; Start 12/09/16 at 21:00; Stop 12/12/16 at 18:03; Status DC Buspirone HCl (Buspar) 5 mg QID PO Last administered on 12/14/16 17:05; Start 12/12/16 at 21:00; Stop 12/14/16 at 18:46; Status DC Buspirone HCl (Buspar) 10 mg TID PO Last administered on 12/19/16 19:47; Start 12/14/16 at 21:00 Docusate Sodium (Colace) 100 mg BID PO Last administered on 12/19/16 19:47; Start 12/17/16 at 21:00 Polyethylene Glycol (miraLAX) 17 gm DAILY PO Last administered on 12/19/16 08: 17; Start 12/18/16 at 09:00 Melatonin 3 mg QHS PO Last administered on 12/19/16 19:47; Start 12/18/16 at 21:00 Trazodone HCl (Desyrel) 12.5 mg 09,14 PO ; Start 12/20/16 at 09:00 Active Scripts Active Reported Zyprexa Zydis (Olanzapine) 10 Mg Tab.rapdis 10 Mg PO PRN Q4HRS PRN Zyprexa (Olanzapine) 2.5 Mg Tablet 2.5 Mg PO QHS Namenda (Memantine Hcl) 5 Mg Tablet 2.5 Mg PO QHS 4 Days Namenda (Memantine Hcl) 5 Mg Tablet 5 Mg PO DAILY 4 Days Synthroid (Levothyroxine Sodium) 25 Mcg Tablet 25 Mcg PO DAILY06 Zoloft (Sertraline Hcl) 25 Mg Tablet 25 Mg PO DAILY Oyster Shell 500 Mg + Vit D Tb (Calcium Carbonate/Vitamin D3) 1 Each Tablet 1 Tab PO DAILY Evista (Raloxifene Hcl) 60 Mg Tablet 60 Mg PO DAILY Gnp B-50 Complex Tablet (Vitamin B Complex/Folic Acid) 0.4 Mg Tablet.er 0.8 Mg PO DAILY Namenda Xr (Memantine Hcl) 7 Mg Cap.spr.24 7 Mg PO DAILY EXELON 4.6mg/24hr (Rivastigmine) 1 Each Patch.td24 1 Patch TD DAILY Diagnosis: Problems: (1) Mental status change (2) Anxiety disorder (3) Dementia in Alzheimer's disease with depression (4) Dementia, vascular, with delusions (5) Dementia, vascular, with depression (6) Dementia in Alzheimer's disease with delusions (7) Impulse control disorder YOGESH VELASQUEZ MD Dec 19, 2016 21:19
[2016-12-20] MEDS: LEVOTHYROXINE 25 MCG TABLET. PO SCH (05:48)
[2016-12-20 06:14] VITALS: BP 136/69
[2016-12-20 06:59] LABS: HEMATOCRIT 40.7 % (36.0-47.0); HEMOGLOBIN 13.5 g/dL (12.0-15.5); RED BLOOD COUNT 4.37 x10^6/uL (3.50-5.40); RED CELL DISTRIBUTION WIDTH 14.2 % (11.5-14.5); WHITE BLOOD COUNT 5.9 x10^3/uL (4.0-11.0)
[2016-12-20 07:19] LABS: ALBUMIN/GLOBULIN RATIO 0.8 (1.0-1.7); CALCIUM 8.8 mg/dL (8.5-10.1); CREATININE 0.9 mg/dL (0.6-1.0); GFR 61.2; TOTAL BILIRUBIN 0.5 mg/dL (0.2-1.0); TOTAL PROTEIN 6.6 g/dL (6.4-8.2)
[2016-12-20] MEDS: VITAMIN B COMPLEX CAPSULE. PO SCH (08:20)
[2016-12-20] MEDS: CALCIUM CARB/VIT D3 500/200 TABLET PO SCH (08:20)
[2016-12-20] MEDS: SERTRALINE 50 MG TABLET. PO SCH (08:21)
[2016-12-20] MEDS: QUEtiapine 25 MG TABLET. PO SCH ×4 (08:21→19:39)
[2016-12-20] MEDS: MEMANTINE 5 MG TABLET. PO SCH ×2 (08:21→19:39)
[2016-12-20] MEDS: RALOXIFENE 60 MG TABLET. PO SCH (08:21)
[2016-12-20] MEDS: busPIRone 10 MG TABLET. PO SCH ×3 (08:21→19:39)
[2016-12-20] MEDS: DOCUSATE SODIUM 100 MG CAPSULE PO SCH ×2 (08:21→19:39)
[2016-12-20] MEDS: POLYETHYLENE GLYCOL 3350 17 GM PACKET. PO SCH (08:21)
[2016-12-20] MEDS: FOLIC ACID 0.4 MG TABLET PO SCH (08:21)
[2016-12-20] MEDS: RIVASTIGMINE 9.5MG PATCH. TD SCH (08:22)
[2016-12-20] MEDS: traZODone 50 MG TABLET. PO SCH ×2 (08:24→13:54)
--- NOTE | 2016-12-20 09:56 | PDOC ---
Exam Olivier Demential Exam: Olivier Note: Please also refer to the separate dictated note~for this date of service dictated separately.~Patient seen individually. Discussed the patient with Nursing staff reviewed the chart.~Reviewed interim history and current functioning. Reviewed vital signs,~Labs/ Radiology~and current medications noted below. Continue current treatment with the changes noted in the dictated addendum note Assessment: Vital Signs: Vital Signs Date Time Temp Pulse Resp B/P Pulse Ox O2 Delivery O2 Flow Rate FiO2 12/20/16 06:14 72 16 136/69 92 12/19/16 15:50 97.4 12/17/16 15:47 Room Air I&O Intake and Output 12/20/16 07:00 Intake Total 840 ml Balance 840 ml Intake Oral 840 ml Labs: Laboratory Tests Test 12/20/16 06:20 White Blood Count 5.9x10^3/uL (4.0-11.0) Red Blood Count 4.37x10^6/uL (3.50-5.40) Hemoglobin 13.5g/dL (12.0-15.5) Hematocrit 40.7% (36.0-47.0) Mean Corpuscular Volume 93fL (79-100) Mean Corpuscular Hemoglobin 31pg (25-35) Mean Corpuscular Hemoglobin Concent 33g/dL (31-37) Red Cell Distribution Width 14.2% (11.5-14.5) Platelet Count 222x10^3/uL (140-400) Sodium Level 144mmol/L (136-145) Potassium Level 4.0mmol/L (3.5-5.1) Chloride Level 109mmol/L (98-107) H Carbon Dioxide Level 31mmol/L (21-32) Anion Gap 4 (6-14) L Blood Urea Nitrogen 14mg/dL (7-20) Creatinine 0.9mg/dL (0.6-1.0) Estimated GFR (Cockcroft-Gault) 61.2 BUN/Creatinine Ratio 16 (6-20) Glucose Level 90mg/dL (70-99) Calcium Level 8.8mg/dL (8.5-10.1) Magnesium Level 2.0mg/dL (1.8-2.4) Total Bilirubin 0.5mg/dL (0.2-1.0) Aspartate Amino Transferase (AST) 20U/L (15-37) Alanine Aminotransferase (ALT) 30U/L (14-59) Alkaline Phosphatase 77U/L (46-116) Total Protein 6.6g/dL (6.4-8.2) Albumin 3.0g/dL (3.4-5.0) L Albumin/Globulin Ratio 0.8 (1.0-1.7) L Current Medications: Meds: Current Medications Diphenhydramine HCl (Benadryl) 50 mg 1X ONCE PO Last administered on 20:00; Start 11/29/16 at 20:00; Stop 11/29/16 at 20:11; Status DC Olanzapine (Zyprexa) 10 mg 1X ONCE PO Last administered on 11/29/16 20:05; Start 11/29/16 at 20:00; Stop 11/29/16 at 20:12; Status DC Lorazepam (Ativan) 1 mg 1X ONCE PO Last administered on 11/29/16 20:05; Start 11/29/16 at 20:00; Stop 11/29/16 at 20:11; Status DC Diphenhydramine HCl (Benadryl) 25 mg STK-MED ONCE PO ; Start 11/29/16 at 20:02; Stop 11/29/16 at 20:03; Status DC Cephalexin HCl (Keflex) 500 mg TID PO Last administered on 12/01/16 13:48; Start 11/29/16 at 21:00; Stop 12/01/16 at 14:15; Status DC Acetaminophen (Tylenol) 650 mg PRN Q6HRS PRN PO PAIN / TEMP Last administered on 12/16/16 15:40; Start 11/29/16 at 20:45 Multi-Ingredient Ointment (Analgesic [place]) 1 sagar PRN QID PRN TP MUSCLE PAIN; Start 11/29/16 at 20:45 Al Hydroxide/Mg Hydroxide (Mylanta Plus Xs) 15 ml PRN AFTMEALHC PRN PO DYSPEPSIA; Start 11/29/16 at 20:45 Magnesium Hydroxide (Milk Of Magnesia) 2,400 mg PRN QHS PRN PO CONSTIPATION Last administered on 12/16/16 09:21; Start 11/29/16 at 20:45 Memantine (Namenda) 5 mg BID PO Last administered on 12/20/16 08:21; Start at 21:00 Rivastigmine (Exelon) 1 patch DAILY TD Last administered on 12/06/16 08:21; Start 11/30/16 at 09:00; Stop 12/06/16 at 12:19; Status DC Sertraline HCl (Zoloft) 25 mg DAILY PO Last administered on 12/06/16 08:20; Start 11/30/16 at 09:00; Stop 12/06/16 at 12:19; Status DC Olanzapine (Zyprexa Zydis) 2.5 mg PRN Q2HR PRN PO Psych Last administered on 08:32; Start 11/29/16 at 20:45 Calcium/Vitamin D (Oscal D 500mg/ 200uts) 1 tab DAILYWBKFT PO Last administered on 12/20/16 08:20; Start 11/30/16 at 08:00 Levothyroxine Sodium (Synthroid) 25 mcg DAILY06 PO Last administered on 05:48; Start 11/30/16 at 06:00 Raloxifene HCl (Evista) 60 mg DAILY PO Last administered on 12/20/16 08:21; Start 11/30/16 at 09:00 Vitamin B Complex 1 cap DAILY PO Last administered on 12/20/16 08:20; Start at 09:00 Iohexol (Omnipaque 300 Mg/ml) 75 ml 1X ONCE IV ; Start 11/29/16 at 22:45; Stop 11/29/16 at 22:46; Status DC Info (Do NOT chart on this entry -- for MONITORING) 1 each PRN DAILY PRN MC SEE COMMENTS; Start 11/29/16 at 22:45; Stop 12/01/16 at 22:44; Status DC Folic Acid (Folic Acid) 0.8 mg DAILY PO Last administered on 12/20/16 08:21; Start 11/30/16 at 09:00 Trazodone HCl (Desyrel) 50 mg PRN QHS PRN PO INSOMNIA, MAY REPEAT X1 Last administered on 12/13/16 01:48; Start 11/30/16 at 16:45 Amoxicillin (Amoxil) 500 mg [id number] PO Last administered on 12/08/16 12:33; Start 12/01/16 at 21:00; Stop 12/08/16 at 20:59; Status DC Mirtazapine (Remeron) 7.5 mg QHS PO Last administered on 12/19/16 19:47; Start 12/01/16 at 21:00 Hydroxyzine HCl (Atarax) 25 mg PRN Q2HR PRN PO ANXIETY / AGITATION Last administered on 12/18/16 16:56; Start 12/01/16 at 18:15 Vitamin D (Vitamin D3) 50,000 unit WEEKLY PO Last administered on 12/17/16 08: 48; Start 12/03/16 at 09:00 Quetiapine Fumarate (SEROquel) 12.5 mg BID PO Last administered on 12/04/16 09: 31; Start 12/02/16 at 21:00; Stop 12/04/16 at 18:23; Status DC Quetiapine Fumarate (SEROquel) 12.5 mg QID PO Last administered on 12/06/16 16: 33; Start 12/04/16 at 21:00; Stop 12/06/16 at 17:46; Status DC Sertraline HCl (Zoloft) 50 mg DAILY PO Last administered on 12/20/16 08:21; Start 12/07/16 at 09:00 Rivastigmine (Exelon) 1 patch DAILY TD Last administered on 12/20/16 08:22; Start 12/07/16 at 09:00 Olanzapine (Zyprexa Zydis) 2.5 mg BID PO ; Start 12/06/16 at 21:00; Stop 12/06/16 at 21:00; Status DC Olanzapine (Zyprexa Zydis) 2.5 mg BID92 PO ; Start 12/06/16 at 21:00; Status Cancel Olanzapine (Zyprexa Zydis) 2.5 mg BID92 PO Last administered on 12/07/16 13:36 ; Start 12/07/16 at 09:00; Stop 12/07/16 at 18:46; Status DC Quetiapine Fumarate (SEROquel) 25 mg QID PO Last administered on 12/20/16 08: 21; Start 12/07/16 at 21:00 Buspirone HCl (Buspar) 5 mg BID PO Last administered on 12/09/16 08:35; Start 12/07/16 at 21:00; Stop 12/09/16 at 18:31; Status DC Buspirone HCl (Buspar) 5 mg TID PO Last administered on 12/12/16 13:25; Start 12/09/16 at 21:00; Stop 12/12/16 at 18:03; Status DC Buspirone HCl (Buspar) 5 mg QID PO Last administered on 12/14/16 17:05; Start 12/12/16 at 21:00; Stop 12/14/16 at 18:46; Status DC Buspirone HCl (Buspar) 10 mg TID PO Last administered on 12/20/16 08:21; Start 12/14/16 at 21:00 Docusate Sodium (Colace) 100 mg BID PO Last administered on 12/20/16 08:21; Start 12/17/16 at 21:00 Polyethylene Glycol (miraLAX) 17 gm DAILY PO Last administered on 12/20/16 08: 21; Start 12/18/16 at 09:00 Melatonin 3 mg QHS PO Last administered on 12/19/16 19:47; Start 12/18/16 at 21:00 Trazodone HCl (Desyrel) 12.5 mg 09,14 PO Last administered on 12/20/16 08:24; Start 12/20/16 at 09:00 Active Scripts Active Reported Zyprexa Zydis (Olanzapine) 10 Mg Tab.rapdis 10 Mg PO PRN Q4HRS PRN Zyprexa (Olanzapine) 2.5 Mg Tablet 2.5 Mg PO QHS Namenda (Memantine Hcl) 5 Mg Tablet 2.5 Mg PO QHS 4 Days Namenda (Memantine Hcl) 5 Mg Tablet 5 Mg PO DAILY 4 Days Synthroid (Levothyroxine Sodium) 25 Mcg Tablet 25 Mcg PO DAILY06 Zoloft (Sertraline Hcl) 25 Mg Tablet 25 Mg PO DAILY Oyster Shell 500 Mg + Vit D Tb (Calcium Carbonate/Vitamin D3) 1 Each Tablet 1 Tab PO DAILY Evista (Raloxifene Hcl) 60 Mg Tablet 60 Mg PO DAILY Gnp B-50 Complex Tablet (Vitamin B Complex/Folic Acid) 0.4 Mg Tablet.er 0.8 Mg PO DAILY Namenda Xr (Memantine Hcl) 7 Mg Cap.spr.24 7 Mg PO DAILY EXELON 4.6mg/24hr (Rivastigmine) 1 Each Patch.td24 1 Patch TD DAILY Diagnosis: Problems: (1) Mental status change (2) Anxiety disorder (3) Dementia in Alzheimer's disease with depression (4) Dementia, vascular, with delusions (5) Dementia, vascular, with depression (6) Dementia in Alzheimer's disease with delusions (7) Impulse control disorder YOGESH VELASQUEZ MD Dec 20, 2016 09:56
[2016-12-20 16:17] VITALS: BP 116/75
[2016-12-20] MEDS: MELATONIN 3 MG TABLET PO SCH (19:39)
[2016-12-20] MEDS: MIRTAZAPINE 7.5 MG TABLET. PO SCH (19:39)
[2016-12-21] MEDS: LEVOTHYROXINE 25 MCG TABLET. PO SCH (06:10)
[2016-12-21 06:56] VITALS: BP 113/64
[2016-12-21] MEDS: FOLIC ACID 0.4 MG TABLET PO SCH (08:21)
[2016-12-21] MEDS: busPIRone 10 MG TABLET. PO SCH ×3 (08:21→19:41)
[2016-12-21] MEDS: VITAMIN B COMPLEX CAPSULE. PO SCH (08:21)
[2016-12-21] MEDS: DOCUSATE SODIUM 100 MG CAPSULE PO SCH ×2 (08:21→19:42)
[2016-12-21] MEDS: CALCIUM CARB/VIT D3 500/200 TABLET PO SCH (08:21)
[2016-12-21] MEDS: traZODone 50 MG TABLET. PO SCH ×2 (08:22→13:10)
[2016-12-21] MEDS: QUEtiapine 25 MG TABLET. PO SCH ×4 (08:23→19:42)
[2016-12-21] MEDS: MEMANTINE 5 MG TABLET. PO SCH ×2 (08:23→19:42)
[2016-12-21] MEDS: POLYETHYLENE GLYCOL 3350 17 GM PACKET. PO SCH (08:23)
[2016-12-21] MEDS: SERTRALINE 50 MG TABLET. PO SCH (08:23)
[2016-12-21] MEDS: RALOXIFENE 60 MG TABLET. PO SCH (08:23)
[2016-12-21] MEDS: RIVASTIGMINE 9.5MG PATCH. TD SCH (08:24)
[2016-12-21] MEDS: OLANZAPINE ZYDIS 5 MG TAB.RAPDIS PO PRN (09:46)
--- NOTE | 2016-12-21 14:34 | PN ---
DATE: 12/20/2016 PSYCHIATRIC PROGRESS NOTE This is a late entry for 12/20/2016, covers elements not covered in my initial note. SUBJECTIVE: The patient has been restless, having intermittent auditory and visual hallucinations, seeing and talking to Mohit, her . REVIEW OF SYSTEMS: Ambulation impaired. No CV, , pulmonary, eye, ENT system symptoms on review. Reliability poor. MENTAL STATUS EXAM: Oriented to herself. Insight, judgment, recent and remote memory, attention, concentration, fund of knowledge poor, consistent with mentioned in my initial note. PLAN: Continue current psychotropics. Adjust further as clinically indicated. YOGESH VELASQUEZ MD DR: AMARJIT/mason JOB#: [id number] / [id number]
--- NOTE | 2016-12-21 14:44 | PN ---
DATE: 12/19/2016 This is a late entry for 12/19/2016. It covers the elements not covered in my initial note. HISTORY OF PRESENT ILLNESS: Per nursing report, the patient was restless morning of 12/19/2016, moving the table constantly in motion, slept 9 hours, received Zyprexa at 8:30 a.m. She has been constipated which could be worsening her agitation and this is being treated symptomatically on Colace and MiraLax per Dr. Carson. REVIEW OF SYSTEMS: Ambulation impaired. No CV, , eye, ENT or pulmonary system symptoms on review. Reliability poor. MENTAL STATUS EXAM: Oriented to herself. Insight, judgment, recent and remote memory, attention, concentration, fund of knowledge poor, consistent with her diagnosis mentioned in my initial note. IMPRESSION: Major neurocognitive disorder, Alzheimer's, vascular, with depression, delusion, behavioral disturbance, anxiety disorder, unspecified; impulse control disorder, unspecified. PLAN: Continue Exelon patch, Namenda, Zoloft, Zyprexa p.r.n., trazodone at night, Remeron 7.5 at bedtime, BuSpar 10 four times a day, Atarax p.r.n. Start trazodone 12.5 mg at 8:00 a.m. and 2 p.m. for her anxiety, agitation, mood lability. MAN Jaclyn VELASQUEZ MD DR: AMARJIT/mason JOB#: [id number] / [id number]
[2016-12-21] MEDS: MIRTAZAPINE 7.5 MG TABLET. PO SCH (19:41)
[2016-12-21] MEDS: MELATONIN 3 MG TABLET PO SCH (19:42)
--- NOTE | 2016-12-21 21:13 | PDOC ---
Exam Olivier Demential Exam: Olivier Note: Please also refer to the separate dictated note~for this date of service dictated separately.~Patient seen individually. Discussed the patient with Nursing staff reviewed the chart.~Reviewed interim history and current functioning. Reviewed vital signs,~Labs/ Radiology~and current medications noted below. Continue current treatment with the changes noted in the dictated addendum note Assessment: Vital Signs: Vital Signs Date Time Temp Pulse Resp B/P Pulse Ox O2 Delivery O2 Flow Rate FiO2 12/21/16 06:56 98.0 63 18 113/64 95 Room Air I&O Intake and Output 12/21/16 07:00 Intake Total 660 ml Balance 660 ml Intake Oral 660 ml # Voids 1 # Bowel Movements 1 Current Medications: Meds: Current Medications Diphenhydramine HCl (Benadryl) 50 mg 1X ONCE PO Last administered on 20:00; Start 11/29/16 at 20:00; Stop 11/29/16 at 20:11; Status DC Olanzapine (Zyprexa) 10 mg 1X ONCE PO Last administered on 11/29/16 20:05; Start 11/29/16 at 20:00; Stop 11/29/16 at 20:12; Status DC Lorazepam (Ativan) 1 mg 1X ONCE PO Last administered on 11/29/16 20:05; Start 11/29/16 at 20:00; Stop 11/29/16 at 20:11; Status DC Diphenhydramine HCl (Benadryl) 25 mg STK-MED ONCE PO ; Start 11/29/16 at 20:02; Stop 11/29/16 at 20:03; Status DC Cephalexin HCl (Keflex) 500 mg TID PO Last administered on 12/01/16 13:48; Start 11/29/16 at 21:00; Stop 12/01/16 at 14:15; Status DC Acetaminophen (Tylenol) 650 mg PRN Q6HRS PRN PO PAIN / TEMP Last administered on 12/16/16 15:40; Start 11/29/16 at 20:45 Multi-Ingredient Ointment (Analgesic [place]) 1 sagar PRN QID PRN TP MUSCLE PAIN; Start 11/29/16 at 20:45 Al Hydroxide/Mg Hydroxide (Mylanta Plus Xs) 15 ml PRN AFTMEALHC PRN PO DYSPEPSIA; Start 11/29/16 at 20:45 Magnesium Hydroxide (Milk Of Magnesia) 2,400 mg PRN QHS PRN PO CONSTIPATION Last administered on 12/16/16 09:21; Start 11/29/16 at 20:45 Memantine (Namenda) 5 mg BID PO Last administered on 12/21/16 19:42; Start at 21:00 Rivastigmine (Exelon) 1 patch DAILY TD Last administered on 12/06/16 08:21; Start 11/30/16 at 09:00; Stop 12/06/16 at 12:19; Status DC Sertraline HCl (Zoloft) 25 mg DAILY PO Last administered on 12/06/16 08:20; Start 11/30/16 at 09:00; Stop 12/06/16 at 12:19; Status DC Olanzapine (Zyprexa Zydis) 2.5 mg PRN Q2HR PRN PO Psych Last administered on 09:46; Start 11/29/16 at 20:45 Calcium/Vitamin D (Oscal D 500mg/ 200uts) 1 tab DAILYWBKFT PO Last administered on 12/21/16 08:21; Start 11/30/16 at 08:00 Levothyroxine Sodium (Synthroid) 25 mcg DAILY06 PO Last administered on 06:10; Start 11/30/16 at 06:00 Raloxifene HCl (Evista) 60 mg DAILY PO Last administered on 12/21/16 08:23; Start 11/30/16 at 09:00 Vitamin B Complex 1 cap DAILY PO Last administered on 12/21/16 08:21; Start at 09:00 Iohexol (Omnipaque 300 Mg/ml) 75 ml 1X ONCE IV ; Start 11/29/16 at 22:45; Stop 11/29/16 at 22:46; Status DC Info (Do NOT chart on this entry -- for MONITORING) 1 each PRN DAILY PRN MC SEE COMMENTS; Start 11/29/16 at 22:45; Stop 12/01/16 at 22:44; Status DC Folic Acid (Folic Acid) 0.8 mg DAILY PO Last administered on 12/21/16 08:21; Start 11/30/16 at 09:00 Trazodone HCl (Desyrel) 50 mg PRN QHS PRN PO INSOMNIA, MAY REPEAT X1 Last administered on 12/13/16 01:48; Start 11/30/16 at 16:45 Amoxicillin (Amoxil) 500 mg [id number] PO Last administered on 12/08/16 12:33; Start 12/01/16 at 21:00; Stop 12/08/16 at 20:59; Status DC Mirtazapine (Remeron) 7.5 mg QHS PO Last administered on 12/21/16 19:41; Start 12/01/16 at 21:00 Hydroxyzine HCl (Atarax) 25 mg PRN Q2HR PRN PO ANXIETY / AGITATION Last administered on 12/18/16 16:56; Start 12/01/16 at 18:15 Vitamin D (Vitamin D3) 50,000 unit WEEKLY PO Last administered on 12/17/16 08: 48; Start 12/03/16 at 09:00 Quetiapine Fumarate (SEROquel) 12.5 mg BID PO Last administered on 12/04/16 09: 31; Start 12/02/16 at 21:00; Stop 12/04/16 at 18:23; Status DC Quetiapine Fumarate (SEROquel) 12.5 mg QID PO Last administered on 12/06/16 16: 33; Start 12/04/16 at 21:00; Stop 12/06/16 at 17:46; Status DC Sertraline HCl (Zoloft) 50 mg DAILY PO Last administered on 12/21/16 08:23; Start 12/07/16 at 09:00 Rivastigmine (Exelon) 1 patch DAILY TD Last administered on 12/21/16 08:24; Start 12/07/16 at 09:00 Olanzapine (Zyprexa Zydis) 2.5 mg BID PO ; Start 12/06/16 at 21:00; Stop 12/06/16 at 21:00; Status DC Olanzapine (Zyprexa Zydis) 2.5 mg BID92 PO ; Start 12/06/16 at 21:00; Status Cancel Olanzapine (Zyprexa Zydis) 2.5 mg BID92 PO Last administered on 12/07/16 13:36 ; Start 12/07/16 at 09:00; Stop 12/07/16 at 18:46; Status DC Quetiapine Fumarate (SEROquel) 25 mg QID PO Last administered on 12/21/16 19: 42; Start 12/07/16 at 21:00 Buspirone HCl (Buspar) 5 mg BID PO Last administered on 12/09/16 08:35; Start 12/07/16 at 21:00; Stop 12/09/16 at 18:31; Status DC Buspirone HCl (Buspar) 5 mg TID PO Last administered on 12/12/16 13:25; Start 12/09/16 at 21:00; Stop 12/12/16 at 18:03; Status DC Buspirone HCl (Buspar) 5 mg QID PO Last administered on 12/14/16 17:05; Start 12/12/16 at 21:00; Stop 12/14/16 at 18:46; Status DC Buspirone HCl (Buspar) 10 mg TID PO Last administered on 12/21/16 19:41; Start 12/14/16 at 21:00 Docusate Sodium (Colace) 100 mg BID PO Last administered on 12/21/16 19:42; Start 12/17/16 at 21:00 Polyethylene Glycol (miraLAX) 17 gm DAILY PO Last administered on 12/21/16 08: 23; Start 12/18/16 at 09:00 Melatonin 3 mg QHS PO Last administered on 12/21/16 19:42; Start 12/18/16 at 21:00 Trazodone HCl (Desyrel) 12.5 mg 09,14 PO Last administered on 12/21/16 13:10; Start 12/20/16 at 09:00 Active Scripts Active Reported Zyprexa Zydis (Olanzapine) 10 Mg Tab.rapdis 10 Mg PO PRN Q4HRS PRN Zyprexa (Olanzapine) 2.5 Mg Tablet 2.5 Mg PO QHS Namenda (Memantine Hcl) 5 Mg Tablet 2.5 Mg PO QHS 4 Days Namenda (Memantine Hcl) 5 Mg Tablet 5 Mg PO DAILY 4 Days Synthroid (Levothyroxine Sodium) 25 Mcg Tablet 25 Mcg PO DAILY06 Zoloft (Sertraline Hcl) 25 Mg Tablet 25 Mg PO DAILY Oyster Shell 500 Mg + Vit D Tb (Calcium Carbonate/Vitamin D3) 1 Each Tablet 1 Tab PO DAILY Evista (Raloxifene Hcl) 60 Mg Tablet 60 Mg PO DAILY Gnp B-50 Complex Tablet (Vitamin B Complex/Folic Acid) 0.4 Mg Tablet.er 0.8 Mg PO DAILY Namenda Xr (Memantine Hcl) 7 Mg Cap.spr.24 7 Mg PO DAILY EXELON 4.6mg/24hr (Rivastigmine) 1 Each Patch.td24 1 Patch TD DAILY Diagnosis: Problems: (1) Mental status change (2) Anxiety disorder (3) Dementia in Alzheimer's disease with depression (4) Dementia, vascular, with delusions (5) Dementia, vascular, with depression (6) Dementia in Alzheimer's disease with delusions (7) Impulse control disorder YOGESH VELASQUEZ MD Dec 21, 2016 21:13
[2016-12-22] MEDS: LEVOTHYROXINE 25 MCG TABLET. PO SCH (05:26)
[2016-12-22 05:57] VITALS: BP 114/63
[2016-12-22] MEDS: CALCIUM CARB/VIT D3 500/200 TABLET PO SCH (08:02)
[2016-12-22] MEDS: VITAMIN B COMPLEX CAPSULE. PO SCH (08:02)
[2016-12-22] MEDS: MEMANTINE 5 MG TABLET. PO SCH ×2 (08:03→19:39)
[2016-12-22] MEDS: FOLIC ACID 0.4 MG TABLET PO SCH (08:03)
[2016-12-22] MEDS: traZODone 50 MG TABLET. PO SCH ×3 (08:03→19:42)
[2016-12-22] MEDS: RALOXIFENE 60 MG TABLET. PO SCH (08:03)
[2016-12-22] MEDS: POLYETHYLENE GLYCOL 3350 17 GM PACKET. PO SCH (08:03)
[2016-12-22] MEDS: busPIRone 10 MG TABLET. PO SCH ×3 (08:03→19:39)
[2016-12-22] MEDS: DOCUSATE SODIUM 100 MG CAPSULE PO SCH ×2 (08:03→19:38)
[2016-12-22] MEDS: QUEtiapine 25 MG TABLET. PO SCH ×4 (08:04→19:39)
[2016-12-22] MEDS: RIVASTIGMINE 9.5MG PATCH. TD SCH (08:04)
[2016-12-22] MEDS: SERTRALINE 50 MG TABLET. PO SCH (08:04)
--- NOTE | 2016-12-22 19:22 | PDOC ---
Exam Olivier Demential Exam: Olivier Note: Please also refer to the separate dictated note~for this date of service dictated separately.~Patient seen individually. Discussed the patient with Nursing staff reviewed the chart.~Reviewed interim history and current functioning. Reviewed vital signs,~Labs/ Radiology~and current medications noted below. Continue current treatment with the changes noted in the dictated addendum note Assessment: Vital Signs: Vital Signs Date Time Temp Pulse Resp B/P Pulse Ox O2 Delivery O2 Flow Rate FiO2 12/22/16 05:57 96.9 82 18 114/63 95 12/21/16 06:56 Room Air I&O Intake and Output 12/22/16 07:00 Intake Total 320 ml Balance 320 ml Intake Oral 320 ml Current Medications: Meds: Current Medications Diphenhydramine HCl (Benadryl) 50 mg 1X ONCE PO Last administered on 20:00; Start 11/29/16 at 20:00; Stop 11/29/16 at 20:11; Status DC Olanzapine (Zyprexa) 10 mg 1X ONCE PO Last administered on 11/29/16 20:05; Start 11/29/16 at 20:00; Stop 11/29/16 at 20:12; Status DC Lorazepam (Ativan) 1 mg 1X ONCE PO Last administered on 11/29/16 20:05; Start 11/29/16 at 20:00; Stop 11/29/16 at 20:11; Status DC Diphenhydramine HCl (Benadryl) 25 mg STK-MED ONCE PO ; Start 11/29/16 at 20:02; Stop 11/29/16 at 20:03; Status DC Cephalexin HCl (Keflex) 500 mg TID PO Last administered on 12/01/16 13:48; Start 11/29/16 at 21:00; Stop 12/01/16 at 14:15; Status DC Acetaminophen (Tylenol) 650 mg PRN Q6HRS PRN PO PAIN / TEMP Last administered on 12/16/16 15:40; Start 11/29/16 at 20:45 Multi-Ingredient Ointment (Analgesic [place]) 1 sagar PRN QID PRN TP MUSCLE PAIN; Start 11/29/16 at 20:45 Al Hydroxide/Mg Hydroxide (Mylanta Plus Xs) 15 ml PRN AFTMEALHC PRN PO DYSPEPSIA; Start 11/29/16 at 20:45 Magnesium Hydroxide (Milk Of Magnesia) 2,400 mg PRN QHS PRN PO CONSTIPATION Last administered on 12/16/16 09:21; Start 11/29/16 at 20:45 Memantine (Namenda) 5 mg BID PO Last administered on 12/22/16 08:03; Start at 21:00 Rivastigmine (Exelon) 1 patch DAILY TD Last administered on 12/06/16 08:21; Start 11/30/16 at 09:00; Stop 12/06/16 at 12:19; Status DC Sertraline HCl (Zoloft) 25 mg DAILY PO Last administered on 12/06/16 08:20; Start 11/30/16 at 09:00; Stop 12/06/16 at 12:19; Status DC Olanzapine (Zyprexa Zydis) 2.5 mg PRN Q2HR PRN PO Psych Last administered on 09:46; Start 11/29/16 at 20:45 Calcium/Vitamin D (Oscal D 500mg/ 200uts) 1 tab DAILYWBKFT PO Last administered on 12/22/16 08:02; Start 11/30/16 at 08:00 Levothyroxine Sodium (Synthroid) 25 mcg DAILY06 PO Last administered on 05:26; Start 11/30/16 at 06:00 Raloxifene HCl (Evista) 60 mg DAILY PO Last administered on 12/22/16 08:03; Start 11/30/16 at 09:00 Vitamin B Complex 1 cap DAILY PO Last administered on 12/22/16 08:02; Start at 09:00 Iohexol (Omnipaque 300 Mg/ml) 75 ml 1X ONCE IV ; Start 11/29/16 at 22:45; Stop 11/29/16 at 22:46; Status DC Info (Do NOT chart on this entry -- for MONITORING) 1 each PRN DAILY PRN MC SEE COMMENTS; Start 11/29/16 at 22:45; Stop 12/01/16 at 22:44; Status DC Folic Acid (Folic Acid) 0.8 mg DAILY PO Last administered on 12/22/16 08:03; Start 11/30/16 at 09:00 Trazodone HCl (Desyrel) 50 mg PRN QHS PRN PO INSOMNIA, MAY REPEAT X1 Last administered on 12/13/16 01:48; Start 11/30/16 at 16:45 Amoxicillin (Amoxil) 500 mg [id number] PO Last administered on 12/08/16 12:33; Start 12/01/16 at 21:00; Stop 12/08/16 at 20:59; Status DC Mirtazapine (Remeron) 7.5 mg QHS PO Last administered on 12/21/16 19:41; Start 12/01/16 at 21:00 Hydroxyzine HCl (Atarax) 25 mg PRN Q2HR PRN PO ANXIETY / AGITATION Last administered on 12/18/16 16:56; Start 12/01/16 at 18:15 Vitamin D (Vitamin D3) 50,000 unit WEEKLY PO Last administered on 12/17/16 08: 48; Start 12/03/16 at 09:00 Quetiapine Fumarate (SEROquel) 12.5 mg BID PO Last administered on 12/04/16 09: 31; Start 12/02/16 at 21:00; Stop 12/04/16 at 18:23; Status DC Quetiapine Fumarate (SEROquel) 12.5 mg QID PO Last administered on 12/06/16 16: 33; Start 12/04/16 at 21:00; Stop 12/06/16 at 17:46; Status DC Sertraline HCl (Zoloft) 50 mg DAILY PO Last administered on 12/22/16 08:04; Start 12/07/16 at 09:00 Rivastigmine (Exelon) 1 patch DAILY TD Last administered on 12/22/16 08:04; Start 12/07/16 at 09:00 Olanzapine (Zyprexa Zydis) 2.5 mg BID PO ; Start 12/06/16 at 21:00; Stop 12/06/16 at 21:00; Status DC Olanzapine (Zyprexa Zydis) 2.5 mg BID92 PO ; Start 12/06/16 at 21:00; Status Cancel Olanzapine (Zyprexa Zydis) 2.5 mg BID92 PO Last administered on 12/07/16 13:36 ; Start 12/07/16 at 09:00; Stop 12/07/16 at 18:46; Status DC Quetiapine Fumarate (SEROquel) 25 mg QID PO Last administered on 12/22/16 17: 07; Start 12/07/16 at 21:00 Buspirone HCl (Buspar) 5 mg BID PO Last administered on 12/09/16 08:35; Start 12/07/16 at 21:00; Stop 12/09/16 at 18:31; Status DC Buspirone HCl (Buspar) 5 mg TID PO Last administered on 12/12/16 13:25; Start 12/09/16 at 21:00; Stop 12/12/16 at 18:03; Status DC Buspirone HCl (Buspar) 5 mg QID PO Last administered on 12/14/16 17:05; Start 12/12/16 at 21:00; Stop 12/14/16 at 18:46; Status DC Buspirone HCl (Buspar) 10 mg TID PO Last administered on 12/22/16 13:16; Start 12/14/16 at 21:00 Docusate Sodium (Colace) 100 mg BID PO Last administered on 12/22/16 08:03; Start 12/17/16 at 21:00 Polyethylene Glycol (miraLAX) 17 gm DAILY PO Last administered on 12/22/16 08: 03; Start 12/18/16 at 09:00 Melatonin 3 mg QHS PO Last administered on 12/21/16 19:42; Start 12/18/16 at 21:00 Trazodone HCl (Desyrel) 12.5 mg 09,14 PO Last administered on 12/22/16 13:16; Start 12/20/16 at 09:00; Stop 12/22/16 at 18:06; Status DC Trazodone HCl (Desyrel) 12.5 mg TID PO ; Start 12/22/16 at 21:00 Active Scripts Active Reported Zyprexa Zydis (Olanzapine) 10 Mg Tab.rapdis 10 Mg PO PRN Q4HRS PRN Zyprexa (Olanzapine) 2.5 Mg Tablet 2.5 Mg PO QHS Namenda (Memantine Hcl) 5 Mg Tablet 2.5 Mg PO QHS 4 Days Namenda (Memantine Hcl) 5 Mg Tablet 5 Mg PO DAILY 4 Days Synthroid (Levothyroxine Sodium) 25 Mcg Tablet 25 Mcg PO DAILY06 Zoloft (Sertraline Hcl) 25 Mg Tablet 25 Mg PO DAILY Oyster Shell 500 Mg + Vit D Tb (Calcium Carbonate/Vitamin D3) 1 Each Tablet 1 Tab PO DAILY Evista (Raloxifene Hcl) 60 Mg Tablet 60 Mg PO DAILY Gnp B-50 Complex Tablet (Vitamin B Complex/Folic Acid) 0.4 Mg Tablet.er 0.8 Mg PO DAILY Namenda Xr (Memantine Hcl) 7 Mg Cap.spr.24 7 Mg PO DAILY EXELON 4.6mg/24hr (Rivastigmine) 1 Each Patch.td24 1 Patch TD DAILY Diagnosis: Problems: (1) Mental status change (2) Anxiety disorder (3) Dementia in Alzheimer's disease with depression (4) Dementia, vascular, with delusions (5) Dementia, vascular, with depression (6) Dementia in Alzheimer's disease with delusions (7) Impulse control disorder YOGESH VELASQUEZ MD Dec 22, 2016 19:22
[2016-12-22] MEDS: MIRTAZAPINE 7.5 MG TABLET. PO SCH (19:39)
[2016-12-22] MEDS: MELATONIN 3 MG TABLET PO SCH (19:39)
--- NOTE | 2016-12-22 22:14 | PN ---
DATE: 12/21/2016 This is a late entry for 12/21/2016 covers elements not covered in my initial note. SUBJECTIVE: Per nursing report, the patient was quite delusional, restless the previous night, hallucinating. Ambulation is impaired and as I met with her, she was in her Broda chair with the table in front of her, constantly moving, ____ for speed. REVIEW OF SYSTEMS: No CV, , pulmonary, eye, ENT system symptoms on review. Reliability poor. MENTAL STATUS EXAM: Oriented to herself. Insight, judgment, recent and remote memory, attention, concentration, fund of knowledge poor, consistent with her diagnosis. LABORATORY DATA: Reviewed. IMPRESSION: Major neurocognitive disorder, Alzheimer, vascular with depression, delusion, behavioral disturbance; anxiety disorder, unspecified; impulse control disorder, unspecified. PLAN: Continue Exelon patch 9.5 mg a day, Namenda 5 b.i.d., Zoloft 50 mg a day, Zyprexa p.r.n., trazodone at bedtime 50, february repeat x 1, Remeron 7.5 at bedtime, Atarax p.r.n., Seroquel is 25 four times a day, BuSpar 10 four times a day, trazodone 12.5 twice a day. We will give it another day with the trazodone low-dosage during the day and see how the anxiety does and if it persists to be a problem, we may need to increase the trazodone or the Seroquel or add low-dose Depakote. I would prefer not to add yet another psychotropic given her age and risk-benefit ratio. MAN Jaclyn VELASQUEZ MD DR: AMARJIT/mason JOB#: [id number] / [id number]
[2016-12-23] MEDS: LEVOTHYROXINE 25 MCG TABLET. PO SCH (05:48)
[2016-12-23 06:15] VITALS: BP 130/73
[2016-12-23] MEDS: busPIRone 10 MG TABLET. PO SCH ×3 (08:01→20:54)
[2016-12-23] MEDS: VITAMIN B COMPLEX CAPSULE. PO SCH (08:01)
[2016-12-23] MEDS: traZODone 50 MG TABLET. PO SCH ×3 (08:01→20:55)
[2016-12-23] MEDS: MEMANTINE 5 MG TABLET. PO SCH ×2 (08:01→20:54)
[2016-12-23] MEDS: QUEtiapine 25 MG TABLET. PO SCH ×4 (08:01→20:54)
[2016-12-23] MEDS: POLYETHYLENE GLYCOL 3350 17 GM PACKET. PO SCH (08:01)
[2016-12-23] MEDS: DOCUSATE SODIUM 100 MG CAPSULE PO SCH ×2 (08:01→20:54)
[2016-12-23] MEDS: CALCIUM CARB/VIT D3 500/200 TABLET PO SCH (08:01)
[2016-12-23] MEDS: FOLIC ACID 0.4 MG TABLET PO SCH (08:01)
[2016-12-23] MEDS: RALOXIFENE 60 MG TABLET. PO SCH (08:01)
[2016-12-23] MEDS: HYDROXYZINE HCL 25 MG TABLET PO PRN ×2 (08:02→15:30)
[2016-12-23] MEDS: RIVASTIGMINE 9.5MG PATCH. TD SCH (08:02)
[2016-12-23] MEDS: SERTRALINE 50 MG TABLET. PO SCH (08:02)
[2016-12-23 15:53] VITALS: BP 124/85
[2016-12-23] MEDS: MIRTAZAPINE 7.5 MG TABLET. PO SCH (20:55)
[2016-12-23] MEDS: MELATONIN 3 MG TABLET PO SCH (20:55)
--- NOTE | 2016-12-23 21:03 | PDOC ---
Exam Olivier Demential Exam: Olivier Note: Please also refer to the separate dictated note~for this date of service dictated separately.~Patient seen individually. Discussed the patient with Nursing staff reviewed the chart.~Reviewed interim history and current functioning. Reviewed vital signs,~Labs/ Radiology~and current medications noted below. Continue current treatment with the changes noted in the dictated addendum note Assessment: Vital Signs: Vital Signs Date Time Temp Pulse Resp B/P Pulse Ox O2 Delivery O2 Flow Rate FiO2 12/23/16 15:53 97.3 94 18 124/85 95 12/21/16 06:56 Room Air I&O Intake and Output 12/23/16 07:00 Intake Total 1560 ml Balance 1560 ml Intake Oral 1560 ml # Bowel Movements 2 Current Medications: Meds: Current Medications Diphenhydramine HCl (Benadryl) 50 mg 1X ONCE PO Last administered on 20:00; Start 11/29/16 at 20:00; Stop 11/29/16 at 20:11; Status DC Olanzapine (Zyprexa) 10 mg 1X ONCE PO Last administered on 11/29/16 20:05; Start 11/29/16 at 20:00; Stop 11/29/16 at 20:12; Status DC Lorazepam (Ativan) 1 mg 1X ONCE PO Last administered on 11/29/16 20:05; Start 11/29/16 at 20:00; Stop 11/29/16 at 20:11; Status DC Diphenhydramine HCl (Benadryl) 25 mg STK-MED ONCE PO ; Start 11/29/16 at 20:02; Stop 11/29/16 at 20:03; Status DC Cephalexin HCl (Keflex) 500 mg TID PO Last administered on 12/01/16 13:48; Start 11/29/16 at 21:00; Stop 12/01/16 at 14:15; Status DC Acetaminophen (Tylenol) 650 mg PRN Q6HRS PRN PO PAIN / TEMP Last administered on 12/16/16 15:40; Start 11/29/16 at 20:45 Multi-Ingredient Ointment (Analgesic [place]) 1 sagar PRN QID PRN TP MUSCLE PAIN; Start 11/29/16 at 20:45 Al Hydroxide/Mg Hydroxide (Mylanta Plus Xs) 15 ml PRN AFTMEALHC PRN PO DYSPEPSIA; Start 11/29/16 at 20:45 Magnesium Hydroxide (Milk Of Magnesia) 2,400 mg PRN QHS PRN PO CONSTIPATION Last administered on 12/16/16 09:21; Start 11/29/16 at 20:45 Memantine (Namenda) 5 mg BID PO Last administered on 12/23/16 20:54; Start at 21:00 Rivastigmine (Exelon) 1 patch DAILY TD Last administered on 12/06/16 08:21; Start 11/30/16 at 09:00; Stop 12/06/16 at 12:19; Status DC Sertraline HCl (Zoloft) 25 mg DAILY PO Last administered on 12/06/16 08:20; Start 11/30/16 at 09:00; Stop 12/06/16 at 12:19; Status DC Olanzapine (Zyprexa Zydis) 2.5 mg PRN Q2HR PRN PO Psych Last administered on 09:46; Start 11/29/16 at 20:45 Calcium/Vitamin D (Oscal D 500mg/ 200uts) 1 tab DAILYWBKFT PO Last administered on 12/23/16 08:01; Start 11/30/16 at 08:00 Levothyroxine Sodium (Synthroid) 25 mcg DAILY06 PO Last administered on 05:48; Start 11/30/16 at 06:00 Raloxifene HCl (Evista) 60 mg DAILY PO Last administered on 12/23/16 08:01; Start 11/30/16 at 09:00 Vitamin B Complex 1 cap DAILY PO Last administered on 12/23/16 08:01; Start at 09:00 Iohexol (Omnipaque 300 Mg/ml) 75 ml 1X ONCE IV ; Start 11/29/16 at 22:45; Stop 11/29/16 at 22:46; Status DC Info (Do NOT chart on this entry -- for MONITORING) 1 each PRN DAILY PRN MC SEE COMMENTS; Start 11/29/16 at 22:45; Stop 12/01/16 at 22:44; Status DC Folic Acid (Folic Acid) 0.8 mg DAILY PO Last administered on 12/23/16 08:01; Start 11/30/16 at 09:00 Trazodone HCl (Desyrel) 50 mg PRN QHS PRN PO INSOMNIA, MAY REPEAT X1 Last administered on 12/13/16 01:48; Start 11/30/16 at 16:45 Amoxicillin (Amoxil) 500 mg [id number] PO Last administered on 12/08/16 12:33; Start 12/01/16 at 21:00; Stop 12/08/16 at 20:59; Status DC Mirtazapine (Remeron) 7.5 mg QHS PO Last administered on 12/23/16 20:55; Start 12/01/16 at 21:00 Hydroxyzine HCl (Atarax) 25 mg PRN Q2HR PRN PO ANXIETY / AGITATION Last administered on 12/23/16 15:30; Start 12/01/16 at 18:15 Vitamin D (Vitamin D3) 50,000 unit WEEKLY PO Last administered on 12/17/16 08: 48; Start 12/03/16 at 09:00 Quetiapine Fumarate (SEROquel) 12.5 mg BID PO Last administered on 12/04/16 09: 31; Start 12/02/16 at 21:00; Stop 12/04/16 at 18:23; Status DC Quetiapine Fumarate (SEROquel) 12.5 mg QID PO Last administered on 12/06/16 16: 33; Start 12/04/16 at 21:00; Stop 12/06/16 at 17:46; Status DC Sertraline HCl (Zoloft) 50 mg DAILY PO Last administered on 12/23/16 08:02; Start 12/07/16 at 09:00 Rivastigmine (Exelon) 1 patch DAILY TD Last administered on 12/23/16 08:02; Start 12/07/16 at 09:00 Olanzapine (Zyprexa Zydis) 2.5 mg BID PO ; Start 12/06/16 at 21:00; Stop 12/06/16 at 21:00; Status DC Olanzapine (Zyprexa Zydis) 2.5 mg BID92 PO ; Start 12/06/16 at 21:00; Status Cancel Olanzapine (Zyprexa Zydis) 2.5 mg BID92 PO Last administered on 12/07/16 13:36 ; Start 12/07/16 at 09:00; Stop 12/07/16 at 18:46; Status DC Quetiapine Fumarate (SEROquel) 25 mg QID PO Last administered on 12/23/16 20: 54; Start 12/07/16 at 21:00 Buspirone HCl (Buspar) 5 mg BID PO Last administered on 12/09/16 08:35; Start 12/07/16 at 21:00; Stop 12/09/16 at 18:31; Status DC Buspirone HCl (Buspar) 5 mg TID PO Last administered on 12/12/16 13:25; Start 12/09/16 at 21:00; Stop 12/12/16 at 18:03; Status DC Buspirone HCl (Buspar) 5 mg QID PO Last administered on 12/14/16 17:05; Start 12/12/16 at 21:00; Stop 12/14/16 at 18:46; Status DC Buspirone HCl (Buspar) 10 mg TID PO Last administered on 12/23/16 20:54; Start 12/14/16 at 21:00 Docusate Sodium (Colace) 100 mg BID PO Last administered on 12/23/16 20:54; Start 12/17/16 at 21:00 Polyethylene Glycol (miraLAX) 17 gm DAILY PO Last administered on 12/23/16 08: 01; Start 12/18/16 at 09:00 Melatonin 3 mg QHS PO Last administered on 12/23/16 20:55; Start 12/18/16 at 21:00 Trazodone HCl (Desyrel) 12.5 mg 09,14 PO Last administered on 12/22/16 13:16; Start 12/20/16 at 09:00; Stop 12/22/16 at 18:06; Status DC Trazodone HCl (Desyrel) 12.5 mg TID PO Last administered on 12/23/16 20:55; Start 12/22/16 at 21:00 Active Scripts Active Reported Zyprexa Zydis (Olanzapine) 10 Mg Tab.rapdis 10 Mg PO PRN Q4HRS PRN Zyprexa (Olanzapine) 2.5 Mg Tablet 2.5 Mg PO QHS Namenda (Memantine Hcl) 5 Mg Tablet 2.5 Mg PO QHS 4 Days Namenda (Memantine Hcl) 5 Mg Tablet 5 Mg PO DAILY 4 Days Synthroid (Levothyroxine Sodium) 25 Mcg Tablet 25 Mcg PO DAILY06 Zoloft (Sertraline Hcl) 25 Mg Tablet 25 Mg PO DAILY Oyster Shell 500 Mg + Vit D Tb (Calcium Carbonate/Vitamin D3) 1 Each Tablet 1 Tab PO DAILY Evista (Raloxifene Hcl) 60 Mg Tablet 60 Mg PO DAILY Gnp B-50 Complex Tablet (Vitamin B Complex/Folic Acid) 0.4 Mg Tablet.er 0.8 Mg PO DAILY Namenda Xr (Memantine Hcl) 7 Mg Cap.spr.24 7 Mg PO DAILY EXELON 4.6mg/24hr (Rivastigmine) 1 Each Patch.td24 1 Patch TD DAILY Diagnosis: Problems: (1) Mental status change (2) Anxiety disorder (3) Dementia in Alzheimer's disease with depression (4) Dementia, vascular, with delusions (5) Dementia, vascular, with depression (6) Dementia in Alzheimer's disease with delusions (7) Impulse control disorder YOGESH VELASQUEZ MD Dec 23, 2016 21:03
[2016-12-23] MEDS: traZODone 50 MG TABLET. PO PRN (21:52)
[2016-12-24] MEDS: LEVOTHYROXINE 25 MCG TABLET. PO SCH (05:49)
[2016-12-24 06:02] VITALS: BP 120/64
[2016-12-24] MEDS: QUEtiapine 25 MG TABLET. PO SCH ×4 (11:08→19:40)
[2016-12-24] MEDS: traZODone 50 MG TABLET. PO SCH ×3 (11:08→19:40)
[2016-12-24] MEDS: busPIRone 10 MG TABLET. PO SCH ×3 (11:08→19:39)
[2016-12-24] MEDS: RALOXIFENE 60 MG TABLET. PO SCH (12:27)
[2016-12-24] MEDS: POLYETHYLENE GLYCOL 3350 17 GM PACKET. PO SCH (12:27)
[2016-12-24] MEDS: DOCUSATE SODIUM 100 MG CAPSULE PO SCH ×2 (12:27→19:40)
[2016-12-24] MEDS: CHOLECALCIFEROL (VITAMIN D3) 50,000 UNIT CAPSULE PO SCH (12:28)
[2016-12-24] MEDS: MEMANTINE 5 MG TABLET. PO SCH ×2 (12:28→19:40)
[2016-12-24] MEDS: FOLIC ACID 0.4 MG TABLET PO SCH (12:28)
[2016-12-24] MEDS: RIVASTIGMINE 9.5MG PATCH. TD SCH (12:28)
[2016-12-24] MEDS: CALCIUM CARB/VIT D3 500/200 TABLET PO SCH (12:28)
[2016-12-24] MEDS: VITAMIN B COMPLEX CAPSULE. PO SCH (12:28)
[2016-12-24] MEDS: SERTRALINE 50 MG TABLET. PO SCH (12:28)
[2016-12-24 16:20] VITALS: BP 130/92
[2016-12-24] MEDS: MELATONIN 3 MG TABLET PO SCH (19:39)
[2016-12-24] MEDS: MIRTAZAPINE 7.5 MG TABLET. PO SCH (19:40)
--- NOTE | 2016-12-24 21:16 | PDOC ---
Exam Olivier Demential Exam: Olivier Note: Please also refer to the separate dictated note~for this date of service dictated separately.~Patient seen individually. Discussed the patient with Nursing staff reviewed the chart.~Reviewed interim history and current functioning. Reviewed vital signs,~Labs/ Radiology~and current medications noted below. Continue current treatment with the changes noted in the dictated addendum note Assessment: Vital Signs: Vital Signs Date Time Temp Pulse Resp B/P Pulse Ox O2 Delivery O2 Flow Rate FiO2 12/24/16 16:20 98.0 89 20 130/92 93 12/21/16 06:56 Room Air I&O Intake and Output 12/24/16 07:00 Intake Total 1080 ml Balance 1080 ml Intake Oral 1080 ml Current Medications: Meds: Current Medications Diphenhydramine HCl (Benadryl) 50 mg 1X ONCE PO Last administered on 20:00; Start 11/29/16 at 20:00; Stop 11/29/16 at 20:11; Status DC Olanzapine (Zyprexa) 10 mg 1X ONCE PO Last administered on 11/29/16 20:05; Start 11/29/16 at 20:00; Stop 11/29/16 at 20:12; Status DC Lorazepam (Ativan) 1 mg 1X ONCE PO Last administered on 11/29/16 20:05; Start 11/29/16 at 20:00; Stop 11/29/16 at 20:11; Status DC Diphenhydramine HCl (Benadryl) 25 mg STK-MED ONCE PO ; Start 11/29/16 at 20:02; Stop 11/29/16 at 20:03; Status DC Cephalexin HCl (Keflex) 500 mg TID PO Last administered on 12/01/16 13:48; Start 11/29/16 at 21:00; Stop 12/01/16 at 14:15; Status DC Acetaminophen (Tylenol) 650 mg PRN Q6HRS PRN PO PAIN / TEMP Last administered on 12/16/16 15:40; Start 11/29/16 at 20:45 Multi-Ingredient Ointment (Analgesic [place]) 1 sagar PRN QID PRN TP MUSCLE PAIN; Start 11/29/16 at 20:45 Al Hydroxide/Mg Hydroxide (Mylanta Plus Xs) 15 ml PRN AFTMEALHC PRN PO DYSPEPSIA; Start 11/29/16 at 20:45 Magnesium Hydroxide (Milk Of Magnesia) 2,400 mg PRN QHS PRN PO CONSTIPATION Last administered on 12/16/16 09:21; Start 11/29/16 at 20:45 Memantine (Namenda) 5 mg BID PO Last administered on 12/24/16 19:40; Start at 21:00 Rivastigmine (Exelon) 1 patch DAILY TD Last administered on 12/06/16 08:21; Start 11/30/16 at 09:00; Stop 12/06/16 at 12:19; Status DC Sertraline HCl (Zoloft) 25 mg DAILY PO Last administered on 12/06/16 08:20; Start 11/30/16 at 09:00; Stop 12/06/16 at 12:19; Status DC Olanzapine (Zyprexa Zydis) 2.5 mg PRN Q2HR PRN PO Psych Last administered on 09:46; Start 11/29/16 at 20:45 Calcium/Vitamin D (Oscal D 500mg/ 200uts) 1 tab DAILYWBKFT PO Last administered on 12/24/16 12:28; Start 11/30/16 at 08:00 Levothyroxine Sodium (Synthroid) 25 mcg DAILY06 PO Last administered on 05:49; Start 11/30/16 at 06:00 Raloxifene HCl (Evista) 60 mg DAILY PO Last administered on 12/24/16 12:27; Start 11/30/16 at 09:00 Vitamin B Complex 1 cap DAILY PO Last administered on 12/24/16 12:28; Start at 09:00 Iohexol (Omnipaque 300 Mg/ml) 75 ml 1X ONCE IV ; Start 11/29/16 at 22:45; Stop 11/29/16 at 22:46; Status DC Info (Do NOT chart on this entry -- for MONITORING) 1 each PRN DAILY PRN MC SEE COMMENTS; Start 11/29/16 at 22:45; Stop 12/01/16 at 22:44; Status DC Folic Acid (Folic Acid) 0.8 mg DAILY PO Last administered on 12/24/16 12:28; Start 11/30/16 at 09:00 Trazodone HCl (Desyrel) 50 mg PRN QHS PRN PO INSOMNIA, MAY REPEAT X1 Last administered on 12/23/16 21:52; Start 11/30/16 at 16:45 Amoxicillin (Amoxil) 500 mg [id number] PO Last administered on 12/08/16 12:33; Start 12/01/16 at 21:00; Stop 12/08/16 at 20:59; Status DC Mirtazapine (Remeron) 7.5 mg QHS PO Last administered on 12/24/16 19:40; Start 12/01/16 at 21:00 Hydroxyzine HCl (Atarax) 25 mg PRN Q2HR PRN PO ANXIETY / AGITATION Last administered on 12/23/16 15:30; Start 12/01/16 at 18:15 Vitamin D (Vitamin D3) 50,000 unit WEEKLY PO Last administered on 12/24/16 12: 28; Start 12/03/16 at 09:00 Quetiapine Fumarate (SEROquel) 12.5 mg BID PO Last administered on 12/04/16 09: 31; Start 12/02/16 at 21:00; Stop 12/04/16 at 18:23; Status DC Quetiapine Fumarate (SEROquel) 12.5 mg QID PO Last administered on 12/06/16 16: 33; Start 12/04/16 at 21:00; Stop 12/06/16 at 17:46; Status DC Sertraline HCl (Zoloft) 50 mg DAILY PO Last administered on 12/24/16 12:28; Start 12/07/16 at 09:00 Rivastigmine (Exelon) 1 patch DAILY TD Last administered on 12/24/16 12:28; Start 12/07/16 at 09:00 Olanzapine (Zyprexa Zydis) 2.5 mg BID PO ; Start 12/06/16 at 21:00; Stop 12/06/16 at 21:00; Status DC Olanzapine (Zyprexa Zydis) 2.5 mg BID92 PO ; Start 12/06/16 at 21:00; Status Cancel Olanzapine (Zyprexa Zydis) 2.5 mg BID92 PO Last administered on 12/07/16 13:36 ; Start 12/07/16 at 09:00; Stop 12/07/16 at 18:46; Status DC Quetiapine Fumarate (SEROquel) 25 mg QID PO Last administered on 12/24/16 19: 40; Start 12/07/16 at 21:00 Buspirone HCl (Buspar) 5 mg BID PO Last administered on 12/09/16 08:35; Start 12/07/16 at 21:00; Stop 12/09/16 at 18:31; Status DC Buspirone HCl (Buspar) 5 mg TID PO Last administered on 12/12/16 13:25; Start 12/09/16 at 21:00; Stop 12/12/16 at 18:03; Status DC Buspirone HCl (Buspar) 5 mg QID PO Last administered on 12/14/16 17:05; Start 12/12/16 at 21:00; Stop 12/14/16 at 18:46; Status DC Buspirone HCl (Buspar) 10 mg TID PO Last administered on 12/24/16 19:39; Start 12/14/16 at 21:00 Docusate Sodium (Colace) 100 mg BID PO Last administered on 12/24/16 19:40; Start 12/17/16 at 21:00 Polyethylene Glycol (miraLAX) 17 gm DAILY PO Last administered on 12/24/16 12: 27; Start 12/18/16 at 09:00 Melatonin 3 mg QHS PO Last administered on 12/24/16 19:39; Start 12/18/16 at 21:00 Trazodone HCl (Desyrel) 12.5 mg 09,14 PO Last administered on 12/22/16 13:16; Start 12/20/16 at 09:00; Stop 12/22/16 at 18:06; Status DC Trazodone HCl (Desyrel) 12.5 mg TID PO Last administered on 12/24/16 19:40; Start 12/22/16 at 21:00 Active Scripts Active Reported Zyprexa Zydis (Olanzapine) 10 Mg Tab.rapdis 10 Mg PO PRN Q4HRS PRN Zyprexa (Olanzapine) 2.5 Mg Tablet 2.5 Mg PO QHS Namenda (Memantine Hcl) 5 Mg Tablet 2.5 Mg PO QHS 4 Days Namenda (Memantine Hcl) 5 Mg Tablet 5 Mg PO DAILY 4 Days Synthroid (Levothyroxine Sodium) 25 Mcg Tablet 25 Mcg PO DAILY06 Zoloft (Sertraline Hcl) 25 Mg Tablet 25 Mg PO DAILY Oyster Shell 500 Mg + Vit D Tb (Calcium Carbonate/Vitamin D3) 1 Each Tablet 1 Tab PO DAILY Evista (Raloxifene Hcl) 60 Mg Tablet 60 Mg PO DAILY Gnp B-50 Complex Tablet (Vitamin B Complex/Folic Acid) 0.4 Mg Tablet.er 0.8 Mg PO DAILY Namenda Xr (Memantine Hcl) 7 Mg Cap.spr.24 7 Mg PO DAILY EXELON 4.6mg/24hr (Rivastigmine) 1 Each Patch.td24 1 Patch TD DAILY Diagnosis: Problems: (1) Mental status change (2) Anxiety disorder (3) Dementia in Alzheimer's disease with depression (4) Dementia, vascular, with delusions (5) Dementia, vascular, with depression (6) Dementia in Alzheimer's disease with delusions (7) Impulse control disorder YOGESH VELASQUEZ MD Dec 24, 2016 21:16
--- NOTE | 2016-12-25 01:34 | PN ---
DATE: 12/22/2016 This late entry for 12/22/2016 covers elements not covered in my initial note. SUBJECTIVE: The patient slept 10 hours the previous night. REVIEW OF SYSTEMS: Ambulation impaired, in her Broda chair. No CV, , pulmonary, eye, ENT system symptoms on review. She remains anxious, restless, quite labile in her mood, constantly talking with no one around her, grabbing at things, trying to push things off the table in front of her. Insight, judgment, recent and remote memory, attention, concentration, fund of knowledge poor, consistent with her diagnosis mentioned in my initial note. IMPRESSION: Major neurocognitive disorder, Alzheimer, vascular with depression, delusion, behavioral disturbance; anxiety disorder, unspecified; impulse control disorder, unspecified. PLAN: Continue psychotropics mentioned in my initial note, increase the daytime trazodone from 12.5 b.i.d. to 12.5 t.i.d. Adjust further as clinically indicated. YOGESH VELASQUEZ MD DR: AAMRJIT/mason JOB#: [id number] / [id number]
--- NOTE | 2016-12-25 01:44 | PN ---
DATE: 12/23/2016 This is a late entry for 12/23/2016 covers elements not covered in my initial note. SUBJECTIVE: Per nursing report, the patient has been anxious, restless, delusional, having some questionable auditory and visual hallucinations, but not aggressive. She remains hyperverbal. REVIEW OF SYSTEMS: Ambulation impaired, in her Broda chair. No CV, , eye, ENT, pulmonary system symptoms on review. Reliability poor. MENTAL STATUS EXAM: Oriented to herself. Insight, judgment, recent and remote memory, attention, concentration, fund of knowledge poor, consistent with her diagnosis as mentioned in my initial note. PLAN: Continue Namenda 5 b.i.d., Exelon patch 9.5 mg a day, Zoloft 50 mg a day, Zyprexa p.r.n., Remeron 7.5 at bedtime, trazodone 12.5 t.i.d., Atarax p.r.n., Seroquel 25 four times a day, BuSpar 10 four times a day. Adjust further as clinically indicated. MAN Jaclyn VELASQUEZ MD DR: AMARJIT/mason JOB#: [id number] / [id number]
[2016-12-25] MEDS: LEVOTHYROXINE 25 MCG TABLET. PO SCH (05:33)
[2016-12-25 06:21] VITALS: BP 118/76
[2016-12-25] MEDS: QUEtiapine 25 MG TABLET. PO SCH ×4 (10:30→20:04)
[2016-12-25] MEDS: RALOXIFENE 60 MG TABLET. PO SCH (10:30)
[2016-12-25] MEDS: CALCIUM CARB/VIT D3 500/200 TABLET PO SCH (10:30)
[2016-12-25] MEDS: MEMANTINE 5 MG TABLET. PO SCH ×2 (10:30→20:04)
[2016-12-25] MEDS: DOCUSATE SODIUM 100 MG CAPSULE PO SCH ×2 (10:30→20:04)
[2016-12-25] MEDS: traZODone 50 MG TABLET. PO SCH ×3 (10:30→20:04)
[2016-12-25] MEDS: SERTRALINE 50 MG TABLET. PO SCH (10:30)
[2016-12-25] MEDS: FOLIC ACID 0.4 MG TABLET PO SCH (10:30)
[2016-12-25] MEDS: VITAMIN B COMPLEX CAPSULE. PO SCH (10:30)
[2016-12-25] MEDS: busPIRone 10 MG TABLET. PO SCH ×3 (10:30→20:04)
[2016-12-25] MEDS: POLYETHYLENE GLYCOL 3350 17 GM PACKET. PO SCH (10:31)
[2016-12-25] MEDS: RIVASTIGMINE 9.5MG PATCH. TD SCH (10:31)
[2016-12-25 16:11] VITALS: BP 100/58
[2016-12-25] MEDS: MIRTAZAPINE 7.5 MG TABLET. PO SCH (20:04)
[2016-12-25] MEDS: DIVALPROEX 125 MG CAP.SPRINK PO SCH (20:04)
[2016-12-25] MEDS: MELATONIN 3 MG TABLET PO SCH (20:04)
--- NOTE | 2016-12-25 21:00 | PDOC ---
Exam Olivier Demential Exam: Olivier Note: Please also refer to the separate dictated note~for this date of service dictated separately.~Patient seen individually. Discussed the patient with Nursing staff reviewed the chart.~Reviewed interim history and current functioning. Reviewed vital signs,~Labs/ Radiology~and current medications noted below. Continue current treatment with the changes noted in the dictated addendum note Assessment: Vital Signs: Vital Signs Date Time Temp Pulse Resp B/P Pulse Ox O2 Delivery O2 Flow Rate FiO2 12/25/16 16:11 97.1 80 18 100/58 94 12/21/16 06:56 Room Air I&O Intake and Output 12/25/16 07:00 Intake Total 480 ml Balance 480 ml Intake Oral 480 ml Current Medications: Meds: Current Medications Diphenhydramine HCl (Benadryl) 50 mg 1X ONCE PO Last administered on 20:00; Start 11/29/16 at 20:00; Stop 11/29/16 at 20:11; Status DC Olanzapine (Zyprexa) 10 mg 1X ONCE PO Last administered on 11/29/16 20:05; Start 11/29/16 at 20:00; Stop 11/29/16 at 20:12; Status DC Lorazepam (Ativan) 1 mg 1X ONCE PO Last administered on 11/29/16 20:05; Start 11/29/16 at 20:00; Stop 11/29/16 at 20:11; Status DC Diphenhydramine HCl (Benadryl) 25 mg STK-MED ONCE PO ; Start 11/29/16 at 20:02; Stop 11/29/16 at 20:03; Status DC Cephalexin HCl (Keflex) 500 mg TID PO Last administered on 12/01/16 13:48; Start 11/29/16 at 21:00; Stop 12/01/16 at 14:15; Status DC Acetaminophen (Tylenol) 650 mg PRN Q6HRS PRN PO PAIN / TEMP Last administered on 12/16/16 15:40; Start 11/29/16 at 20:45 Multi-Ingredient Ointment (Analgesic [place]) 1 sagar PRN QID PRN TP MUSCLE PAIN; Start 11/29/16 at 20:45 Al Hydroxide/Mg Hydroxide (Mylanta Plus Xs) 15 ml PRN AFTMEALHC PRN PO DYSPEPSIA; Start 11/29/16 at 20:45 Magnesium Hydroxide (Milk Of Magnesia) 2,400 mg PRN QHS PRN PO CONSTIPATION Last administered on 12/16/16 09:21; Start 11/29/16 at 20:45 Memantine (Namenda) 5 mg BID PO Last administered on 12/25/16 20:04; Start at 21:00 Rivastigmine (Exelon) 1 patch DAILY TD Last administered on 12/06/16 08:21; Start 11/30/16 at 09:00; Stop 12/06/16 at 12:19; Status DC Sertraline HCl (Zoloft) 25 mg DAILY PO Last administered on 12/06/16 08:20; Start 11/30/16 at 09:00; Stop 12/06/16 at 12:19; Status DC Olanzapine (Zyprexa Zydis) 2.5 mg PRN Q2HR PRN PO Psych Last administered on 09:46; Start 11/29/16 at 20:45 Calcium/Vitamin D (Oscal D 500mg/ 200uts) 1 tab DAILYWBKFT PO Last administered on 12/25/16 10:30; Start 11/30/16 at 08:00 Levothyroxine Sodium (Synthroid) 25 mcg DAILY06 PO Last administered on 05:33; Start 11/30/16 at 06:00 Raloxifene HCl (Evista) 60 mg DAILY PO Last administered on 12/25/16 10:30; Start 11/30/16 at 09:00 Vitamin B Complex 1 cap DAILY PO Last administered on 12/25/16 10:30; Start at 09:00 Iohexol (Omnipaque 300 Mg/ml) 75 ml 1X ONCE IV ; Start 11/29/16 at 22:45; Stop 11/29/16 at 22:46; Status DC Info (Do NOT chart on this entry -- for MONITORING) 1 each PRN DAILY PRN MC SEE COMMENTS; Start 11/29/16 at 22:45; Stop 12/01/16 at 22:44; Status DC Folic Acid (Folic Acid) 0.8 mg DAILY PO Last administered on 12/25/16 10:30; Start 11/30/16 at 09:00 Trazodone HCl (Desyrel) 50 mg PRN QHS PRN PO INSOMNIA, MAY REPEAT X1 Last administered on 12/23/16 21:52; Start 11/30/16 at 16:45 Amoxicillin (Amoxil) 500 mg [id number] PO Last administered on 12/08/16 12:33; Start 12/01/16 at 21:00; Stop 12/08/16 at 20:59; Status DC Mirtazapine (Remeron) 7.5 mg QHS PO Last administered on 12/25/16 20:04; Start 12/01/16 at 21:00 Hydroxyzine HCl (Atarax) 25 mg PRN Q2HR PRN PO ANXIETY / AGITATION Last administered on 12/23/16 15:30; Start 12/01/16 at 18:15 Vitamin D (Vitamin D3) 50,000 unit WEEKLY PO Last administered on 12/24/16 12: 28; Start 12/03/16 at 09:00 Quetiapine Fumarate (SEROquel) 12.5 mg BID PO Last administered on 12/04/16 09: 31; Start 12/02/16 at 21:00; Stop 12/04/16 at 18:23; Status DC Quetiapine Fumarate (SEROquel) 12.5 mg QID PO Last administered on 12/06/16 16: 33; Start 12/04/16 at 21:00; Stop 12/06/16 at 17:46; Status DC Sertraline HCl (Zoloft) 50 mg DAILY PO Last administered on 12/25/16 10:30; Start 12/07/16 at 09:00 Rivastigmine (Exelon) 1 patch DAILY TD Last administered on 12/25/16 10:31; Start 12/07/16 at 09:00 Olanzapine (Zyprexa Zydis) 2.5 mg BID PO ; Start 12/06/16 at 21:00; Stop 12/06/16 at 21:00; Status DC Olanzapine (Zyprexa Zydis) 2.5 mg BID92 PO ; Start 12/06/16 at 21:00; Status Cancel Olanzapine (Zyprexa Zydis) 2.5 mg BID92 PO Last administered on 12/07/16 13:36 ; Start 12/07/16 at 09:00; Stop 12/07/16 at 18:46; Status DC Quetiapine Fumarate (SEROquel) 25 mg QID PO Last administered on 12/25/16 20: 04; Start 12/07/16 at 21:00 Buspirone HCl (Buspar) 5 mg BID PO Last administered on 12/09/16 08:35; Start 12/07/16 at 21:00; Stop 12/09/16 at 18:31; Status DC Buspirone HCl (Buspar) 5 mg TID PO Last administered on 12/12/16 13:25; Start 12/09/16 at 21:00; Stop 12/12/16 at 18:03; Status DC Buspirone HCl (Buspar) 5 mg QID PO Last administered on 12/14/16 17:05; Start 12/12/16 at 21:00; Stop 12/14/16 at 18:46; Status DC Buspirone HCl (Buspar) 10 mg TID PO Last administered on 12/25/16 20:04; Start 12/14/16 at 21:00 Docusate Sodium (Colace) 100 mg BID PO Last administered on 12/25/16 20:04; Start 12/17/16 at 21:00 Polyethylene Glycol (miraLAX) 17 gm DAILY PO Last administered on 12/25/16 10: 31; Start 12/18/16 at 09:00 Melatonin 3 mg QHS PO Last administered on 12/25/16 20:04; Start 12/18/16 at 21:00 Trazodone HCl (Desyrel) 12.5 mg 09,14 PO Last administered on 12/22/16 13:16; Start 12/20/16 at 09:00; Stop 12/22/16 at 18:06; Status DC Trazodone HCl (Desyrel) 12.5 mg TID PO Last administered on 12/25/16 20:04; Start 12/22/16 at 21:00 Divalproex Sodium (Depakote Sprinkles) 125 mg BID PO Last administered on 20:04; Start 12/25/16 at 21:00 Active Scripts Active Reported Zyprexa Zydis (Olanzapine) 10 Mg Tab.rapdis 10 Mg PO PRN Q4HRS PRN Zyprexa (Olanzapine) 2.5 Mg Tablet 2.5 Mg PO QHS Namenda (Memantine Hcl) 5 Mg Tablet 2.5 Mg PO QHS 4 Days Namenda (Memantine Hcl) 5 Mg Tablet 5 Mg PO DAILY 4 Days Synthroid (Levothyroxine Sodium) 25 Mcg Tablet 25 Mcg PO DAILY06 Zoloft (Sertraline Hcl) 25 Mg Tablet 25 Mg PO DAILY Oyster Shell 500 Mg + Vit D Tb (Calcium Carbonate/Vitamin D3) 1 Each Tablet 1 Tab PO DAILY Evista (Raloxifene Hcl) 60 Mg Tablet 60 Mg PO DAILY Gnp B-50 Complex Tablet (Vitamin B Complex/Folic Acid) 0.4 Mg Tablet.er 0.8 Mg PO DAILY Namenda Xr (Memantine Hcl) 7 Mg Cap.spr.24 7 Mg PO DAILY EXELON 4.6mg/24hr (Rivastigmine) 1 Each Patch.td24 1 Patch TD DAILY Diagnosis: Problems: (1) Mental status change (2) Anxiety disorder (3) Dementia in Alzheimer's disease with depression (4) Dementia, vascular, with delusions (5) Dementia, vascular, with depression (6) Dementia in Alzheimer's disease with delusions (7) Impulse control disorder YOGESH VELASQUEZ MD Dec 25, 2016 21:00
[2016-12-26] MEDS: LEVOTHYROXINE 25 MCG TABLET. PO SCH (05:38)
[2016-12-26 06:32] VITALS: BP 108/62
[2016-12-26] MEDS: CALCIUM CARB/VIT D3 500/200 TABLET PO SCH (08:40)
[2016-12-26] MEDS: DOCUSATE SODIUM 100 MG CAPSULE PO SCH ×2 (08:40→19:50)
[2016-12-26] MEDS: SERTRALINE 50 MG TABLET. PO SCH (08:40)
[2016-12-26] MEDS: MEMANTINE 5 MG TABLET. PO SCH ×2 (08:40→19:50)
[2016-12-26] MEDS: QUEtiapine 25 MG TABLET. PO SCH ×4 (08:40→19:50)
[2016-12-26] MEDS: DIVALPROEX 125 MG CAP.SPRINK PO SCH ×2 (08:40→19:50)
[2016-12-26] MEDS: RALOXIFENE 60 MG TABLET. PO SCH (08:40)
[2016-12-26] MEDS: busPIRone 10 MG TABLET. PO SCH ×3 (08:40→19:50)
[2016-12-26] MEDS: traZODone 50 MG TABLET. PO SCH ×3 (08:40→19:50)
[2016-12-26] MEDS: RIVASTIGMINE 9.5MG PATCH. TD SCH (08:41)
[2016-12-26] MEDS: POLYETHYLENE GLYCOL 3350 17 GM PACKET. PO SCH (08:41)
[2016-12-26] MEDS: FOLIC ACID 0.4 MG TABLET PO SCH (08:42)
[2016-12-26] MEDS: VITAMIN B COMPLEX CAPSULE. PO SCH (08:42)
[2016-12-26 16:05] VITALS: BP 111/80
[2016-12-26] MEDS: MELATONIN 3 MG TABLET PO SCH (19:50)
[2016-12-26] MEDS: MIRTAZAPINE 7.5 MG TABLET. PO SCH (19:50)
--- NOTE | 2016-12-26 20:59 | PDOC ---
Exam Olivier Demential Exam: Olivier Note: Please also refer to the separate dictated note~for this date of service dictated separately.~Patient seen individually. Discussed the patient with Nursing staff reviewed the chart.~Reviewed interim history and current functioning. Reviewed vital signs,~Labs/ Radiology~and current medications noted below. Continue current treatment with the changes noted in the dictated addendum note Assessment: Vital Signs: Vital Signs Date Time Temp Pulse Resp B/P Pulse Ox O2 Delivery O2 Flow Rate FiO2 12/26/16 16:05 98.5 99 20 111/80 98 12/21/16 06:56 Room Air I&O Intake and Output 12/26/16 07:00 Intake Total 900 ml Balance 900 ml Intake Oral 900 ml # Voids 2 Current Medications: Meds: Current Medications Diphenhydramine HCl (Benadryl) 50 mg 1X ONCE PO Last administered on 20:00; Start 11/29/16 at 20:00; Stop 11/29/16 at 20:11; Status DC Olanzapine (Zyprexa) 10 mg 1X ONCE PO Last administered on 11/29/16 20:05; Start 11/29/16 at 20:00; Stop 11/29/16 at 20:12; Status DC Lorazepam (Ativan) 1 mg 1X ONCE PO Last administered on 11/29/16 20:05; Start 11/29/16 at 20:00; Stop 11/29/16 at 20:11; Status DC Diphenhydramine HCl (Benadryl) 25 mg STK-MED ONCE PO ; Start 11/29/16 at 20:02; Stop 11/29/16 at 20:03; Status DC Cephalexin HCl (Keflex) 500 mg TID PO Last administered on 12/01/16 13:48; Start 11/29/16 at 21:00; Stop 12/01/16 at 14:15; Status DC Acetaminophen (Tylenol) 650 mg PRN Q6HRS PRN PO PAIN / TEMP Last administered on 12/16/16 15:40; Start 11/29/16 at 20:45 Multi-Ingredient Ointment (Analgesic [place]) 1 sagar PRN QID PRN TP MUSCLE PAIN; Start 11/29/16 at 20:45 Al Hydroxide/Mg Hydroxide (Mylanta Plus Xs) 15 ml PRN AFTMEALHC PRN PO DYSPEPSIA; Start 11/29/16 at 20:45 Magnesium Hydroxide (Milk Of Magnesia) 2,400 mg PRN QHS PRN PO CONSTIPATION Last administered on 12/16/16 09:21; Start 11/29/16 at 20:45 Memantine (Namenda) 5 mg BID PO Last administered on 12/26/16 19:50; Start at 21:00 Rivastigmine (Exelon) 1 patch DAILY TD Last administered on 12/06/16 08:21; Start 11/30/16 at 09:00; Stop 12/06/16 at 12:19; Status DC Sertraline HCl (Zoloft) 25 mg DAILY PO Last administered on 12/06/16 08:20; Start 11/30/16 at 09:00; Stop 12/06/16 at 12:19; Status DC Olanzapine (Zyprexa Zydis) 2.5 mg PRN Q2HR PRN PO Psych Last administered on 09:46; Start 11/29/16 at 20:45 Calcium/Vitamin D (Oscal D 500mg/ 200uts) 1 tab DAILYWBKFT PO Last administered on 12/26/16 08:40; Start 11/30/16 at 08:00 Levothyroxine Sodium (Synthroid) 25 mcg DAILY06 PO Last administered on 05:38; Start 11/30/16 at 06:00 Raloxifene HCl (Evista) 60 mg DAILY PO Last administered on 12/26/16 08:40; Start 11/30/16 at 09:00 Vitamin B Complex 1 cap DAILY PO Last administered on 12/26/16 08:42; Start at 09:00 Iohexol (Omnipaque 300 Mg/ml) 75 ml 1X ONCE IV ; Start 11/29/16 at 22:45; Stop 11/29/16 at 22:46; Status DC Info (Do NOT chart on this entry -- for MONITORING) 1 each PRN DAILY PRN MC SEE COMMENTS; Start 11/29/16 at 22:45; Stop 12/01/16 at 22:44; Status DC Folic Acid (Folic Acid) 0.8 mg DAILY PO Last administered on 12/25/16 10:30; Start 11/30/16 at 09:00 Trazodone HCl (Desyrel) 50 mg PRN QHS PRN PO INSOMNIA, MAY REPEAT X1 Last administered on 12/23/16 21:52; Start 11/30/16 at 16:45 Amoxicillin (Amoxil) 500 mg [id number] PO Last administered on 12/08/16 12:33; Start 12/01/16 at 21:00; Stop 12/08/16 at 20:59; Status DC Mirtazapine (Remeron) 7.5 mg QHS PO Last administered on 12/26/16 19:50; Start 12/01/16 at 21:00 Hydroxyzine HCl (Atarax) 25 mg PRN Q2HR PRN PO ANXIETY / AGITATION Last administered on 12/23/16 15:30; Start 12/01/16 at 18:15 Vitamin D (Vitamin D3) 50,000 unit WEEKLY PO Last administered on 12/24/16 12: 28; Start 12/03/16 at 09:00 Quetiapine Fumarate (SEROquel) 12.5 mg BID PO Last administered on 12/04/16 09: 31; Start 12/02/16 at 21:00; Stop 12/04/16 at 18:23; Status DC Quetiapine Fumarate (SEROquel) 12.5 mg QID PO Last administered on 12/06/16 16: 33; Start 12/04/16 at 21:00; Stop 12/06/16 at 17:46; Status DC Sertraline HCl (Zoloft) 50 mg DAILY PO Last administered on 12/26/16 08:40; Start 12/07/16 at 09:00 Rivastigmine (Exelon) 1 patch DAILY TD Last administered on 12/26/16 08:41; Start 12/07/16 at 09:00 Olanzapine (Zyprexa Zydis) 2.5 mg BID PO ; Start 12/06/16 at 21:00; Stop 12/06/16 at 21:00; Status DC Olanzapine (Zyprexa Zydis) 2.5 mg BID92 PO ; Start 12/06/16 at 21:00; Status Cancel Olanzapine (Zyprexa Zydis) 2.5 mg BID92 PO Last administered on 12/07/16 13:36 ; Start 12/07/16 at 09:00; Stop 12/07/16 at 18:46; Status DC Quetiapine Fumarate (SEROquel) 25 mg QID PO Last administered on 12/26/16 19: 50; Start 12/07/16 at 21:00 Buspirone HCl (Buspar) 5 mg BID PO Last administered on 12/09/16 08:35; Start 12/07/16 at 21:00; Stop 12/09/16 at 18:31; Status DC Buspirone HCl (Buspar) 5 mg TID PO Last administered on 12/12/16 13:25; Start 12/09/16 at 21:00; Stop 12/12/16 at 18:03; Status DC Buspirone HCl (Buspar) 5 mg QID PO Last administered on 12/14/16 17:05; Start 12/12/16 at 21:00; Stop 12/14/16 at 18:46; Status DC Buspirone HCl (Buspar) 10 mg TID PO Last administered on 12/26/16 19:50; Start 12/14/16 at 21:00 Docusate Sodium (Colace) 100 mg BID PO Last administered on 12/26/16 19:50; Start 12/17/16 at 21:00 Polyethylene Glycol (miraLAX) 17 gm DAILY PO Last administered on 12/26/16 08: 41; Start 12/18/16 at 09:00 Melatonin 3 mg QHS PO Last administered on 12/26/16 19:50; Start 12/18/16 at 21:00 Trazodone HCl (Desyrel) 12.5 mg 09,14 PO Last administered on 12/22/16 13:16; Start 12/20/16 at 09:00; Stop 12/22/16 at 18:06; Status DC Trazodone HCl (Desyrel) 12.5 mg TID PO Last administered on 12/26/16 19:50; Start 12/22/16 at 21:00 Divalproex Sodium (Depakote Sprinkles) 125 mg BID PO Last administered on 19:50; Start 12/25/16 at 21:00 Active Scripts Active Reported Zyprexa Zydis (Olanzapine) 10 Mg Tab.rapdis 10 Mg PO PRN Q4HRS PRN Zyprexa (Olanzapine) 2.5 Mg Tablet 2.5 Mg PO QHS Namenda (Memantine Hcl) 5 Mg Tablet 2.5 Mg PO QHS 4 Days Namenda (Memantine Hcl) 5 Mg Tablet 5 Mg PO DAILY 4 Days Synthroid (Levothyroxine Sodium) 25 Mcg Tablet 25 Mcg PO DAILY06 Zoloft (Sertraline Hcl) 25 Mg Tablet 25 Mg PO DAILY Oyster Shell 500 Mg + Vit D Tb (Calcium Carbonate/Vitamin D3) 1 Each Tablet 1 Tab PO DAILY Evista (Raloxifene Hcl) 60 Mg Tablet 60 Mg PO DAILY Gnp B-50 Complex Tablet (Vitamin B Complex/Folic Acid) 0.4 Mg Tablet.er 0.8 Mg PO DAILY Namenda Xr (Memantine Hcl) 7 Mg Cap.spr.24 7 Mg PO DAILY EXELON 4.6mg/24hr (Rivastigmine) 1 Each Patch.td24 1 Patch TD DAILY Diagnosis: Problems: (1) Mental status change (2) Anxiety disorder (3) Dementia in Alzheimer's disease with depression (4) Dementia, vascular, with delusions (5) Dementia, vascular, with depression (6) Dementia in Alzheimer's disease with delusions (7) Impulse control disorder YOGESH VELASQUEZ MD Dec 26, 2016 20:59
--- NOTE | 2016-12-27 00:50 | PN ---
DATE: 12/25/2016 This is a late entry for 12/25/2016, covers elements not covered in my initial note. SUBJECTIVE: The patient was staffed at a treatment team meeting with the entire team, morning of 12/25/2016 and met with her individually. She is calling out for her children's names including Ugo at times and Ervin her , restless, anxious, in a Broda chair. REVIEW OF SYSTEMS: No CV, , pulmonary, eye, ENT system symptoms on review. At the treatment team reviewed history, diagnoses, discharge, aftercare plans and different options. MENTAL STATUS EXAM: Oriented to herself. Insight, judgment, recent and remote memory, attention, concentration, fund of knowledge poor, consistent with her diagnosis mentioned in my initial note. IMPRESSION: Major neurocognitive disorder, Alzheimer, vascular with depression, delusion and behavioral disturbance; anxiety disorder, unspecified; impulse control disorder, unspecified. PLAN: Continue Exelon patch, Namenda, and Zyprexa p.r.n., trazodone p.r.n., Remeron 7.5 mg at bedtime, Atarax p.r.n., Seroquel 25 four times a day, BuSpar 10 four times a day, trazodone scheduled 12.5 t.i.d., start Depakote 125 mg twice a day. Follow labs level in 3 days. Adjust further as clinically indicated. YOGESH VELASQUEZ MD DR: AMARJIT/mason JOB#: [id number] / [id number]
--- NOTE | 2016-12-27 01:06 | PN ---
DATE: 12/24/2016 This is a late entry for 12/24/2016, covers elements not covered in my initial note. SUBJECTIVE: Overall, the patient slept till lunch, did eat her lunch, takes her medications, laughing, somewhat labile, very confused, remains in a Broda chair, singing loud, noisy at times, constantly moving, repeating things that she hears. REVIEW OF SYSTEMS: Ambulation impaired. No CV, , pulmonary, eye, ENT system symptoms on review. Reliability poor. MENTAL STATUS EXAM: Oriented to herself. Insight, judgment, recent and remote memory, attention, concentration, fund of knowledge poor, consistent with her diagnosis. She responds to the name of Mohit, who is her and to Ugo, her son and this was evident as I met with her. LABORATORY DATA: Reviewed. IMPRESSION: Major neurocognitive disorder, Alzheimer, vascular with depression, delusion and behavioral disturbance; anxiety disorder, unspecified; impulse control disorder, unspecified. Rest diagnoses unchanged. PLAN: Continue psychotropics mentioned in my initial note, consider adding Depakote as a mood stabilizer if restlessness, agitation, yelling persists. MAN Jaclyn VELASQUEZ MD DR: AMARJIT/masno JOB#: [id number] / [id number]
[2016-12-27] MEDS: LEVOTHYROXINE 25 MCG TABLET. PO SCH (05:15)
[2016-12-27 06:16] VITALS: BP 118/66
[2016-12-27] MEDS: QUEtiapine 25 MG TABLET. PO SCH ×4 (07:41→19:48)
[2016-12-27] MEDS: RALOXIFENE 60 MG TABLET. PO SCH (07:41)
[2016-12-27] MEDS: DIVALPROEX 125 MG CAP.SPRINK PO SCH ×2 (07:41→19:48)
[2016-12-27] MEDS: DOCUSATE SODIUM 100 MG CAPSULE PO SCH ×2 (07:41→19:48)
[2016-12-27] MEDS: VITAMIN B COMPLEX CAPSULE. PO SCH (07:41)
[2016-12-27] MEDS: FOLIC ACID 0.4 MG TABLET PO SCH (07:42)
[2016-12-27] MEDS: CALCIUM CARB/VIT D3 500/200 TABLET PO SCH (07:42)
[2016-12-27] MEDS: MEMANTINE 5 MG TABLET. PO SCH ×2 (07:42→19:48)
[2016-12-27] MEDS: POLYETHYLENE GLYCOL 3350 17 GM PACKET. PO SCH (07:43)
[2016-12-27] MEDS: SERTRALINE 50 MG TABLET. PO SCH (07:43)
[2016-12-27] MEDS: busPIRone 10 MG TABLET. PO SCH ×3 (07:43→19:48)
[2016-12-27] MEDS: RIVASTIGMINE 9.5MG PATCH. TD SCH (07:43)
[2016-12-27] MEDS: traZODone 50 MG TABLET. PO SCH ×3 (07:43→19:48)
[2016-12-27 16:37] VITALS: BP 144/70
[2016-12-27] MEDS: MIRTAZAPINE 7.5 MG TABLET. PO SCH (19:48)
[2016-12-27] MEDS: MELATONIN 3 MG TABLET PO SCH (19:48)
--- NOTE | 2016-12-27 22:40 | PDOC ---
Exam Olivier Demential Exam: Olivier Note: Please also refer to the separate dictated note~for this date of service dictated separately.~Patient seen individually. Discussed the patient with Nursing staff reviewed the chart.~Reviewed interim history and current functioning. Reviewed vital signs,~Labs/ Radiology~and current medications noted below. Continue current treatment with the changes noted in the dictated addendum note Assessment: Vital Signs: Vital Signs Date Time Temp Pulse Resp B/P Pulse Ox O2 Delivery O2 Flow Rate FiO2 12/27/16 16:37 98.3 61 18 144/70 93 I&O Intake and Output 12/27/16 07:00 Intake Total 940 ml Balance 940 ml Intake Oral 940 ml # Bowel Movements 2 Current Medications: Meds: Current Medications Diphenhydramine HCl (Benadryl) 50 mg 1X ONCE PO Last administered on 20:00; Start 11/29/16 at 20:00; Stop 11/29/16 at 20:11; Status DC Olanzapine (Zyprexa) 10 mg 1X ONCE PO Last administered on 11/29/16 20:05; Start 11/29/16 at 20:00; Stop 11/29/16 at 20:12; Status DC Lorazepam (Ativan) 1 mg 1X ONCE PO Last administered on 11/29/16 20:05; Start 11/29/16 at 20:00; Stop 11/29/16 at 20:11; Status DC Diphenhydramine HCl (Benadryl) 25 mg STK-MED ONCE PO ; Start 11/29/16 at 20:02; Stop 11/29/16 at 20:03; Status DC Cephalexin HCl (Keflex) 500 mg TID PO Last administered on 12/01/16 13:48; Start 11/29/16 at 21:00; Stop 12/01/16 at 14:15; Status DC Acetaminophen (Tylenol) 650 mg PRN Q6HRS PRN PO PAIN / TEMP Last administered on 12/16/16 15:40; Start 11/29/16 at 20:45 Multi-Ingredient Ointment (Analgesic [place]) 1 sagar PRN QID PRN TP MUSCLE PAIN; Start 11/29/16 at 20:45 Al Hydroxide/Mg Hydroxide (Mylanta Plus Xs) 15 ml PRN AFTMEALHC PRN PO DYSPEPSIA; Start 11/29/16 at 20:45 Magnesium Hydroxide (Milk Of Magnesia) 2,400 mg PRN QHS PRN PO CONSTIPATION Last administered on 12/16/16 09:21; Start 11/29/16 at 20:45 Memantine (Namenda) 5 mg BID PO Last administered on 12/27/16 19:48; Start at 21:00 Rivastigmine (Exelon) 1 patch DAILY TD Last administered on 12/06/16 08:21; Start 11/30/16 at 09:00; Stop 12/06/16 at 12:19; Status DC Sertraline HCl (Zoloft) 25 mg DAILY PO Last administered on 12/06/16 08:20; Start 11/30/16 at 09:00; Stop 12/06/16 at 12:19; Status DC Olanzapine (Zyprexa Zydis) 2.5 mg PRN Q2HR PRN PO Psych Last administered on 09:46; Start 11/29/16 at 20:45 Calcium/Vitamin D (Oscal D 500mg/ 200uts) 1 tab DAILYWBKFT PO Last administered on 12/27/16 07:42; Start 11/30/16 at 08:00 Levothyroxine Sodium (Synthroid) 25 mcg DAILY06 PO Last administered on 05:15; Start 11/30/16 at 06:00 Raloxifene HCl (Evista) 60 mg DAILY PO Last administered on 12/27/16 07:41; Start 11/30/16 at 09:00 Vitamin B Complex 1 cap DAILY PO Last administered on 12/27/16 07:41; Start at 09:00 Iohexol (Omnipaque 300 Mg/ml) 75 ml 1X ONCE IV ; Start 11/29/16 at 22:45; Stop 11/29/16 at 22:46; Status DC Info (Do NOT chart on this entry -- for MONITORING) 1 each PRN DAILY PRN MC SEE COMMENTS; Start 11/29/16 at 22:45; Stop 12/01/16 at 22:44; Status DC Folic Acid (Folic Acid) 0.8 mg DAILY PO Last administered on 12/25/16 10:30; Start 11/30/16 at 09:00 Trazodone HCl (Desyrel) 50 mg PRN QHS PRN PO INSOMNIA, MAY REPEAT X1 Last administered on 12/23/16 21:52; Start 11/30/16 at 16:45 Amoxicillin (Amoxil) 500 mg [id number] PO Last administered on 12/08/16 12:33; Start 12/01/16 at 21:00; Stop 12/08/16 at 20:59; Status DC Mirtazapine (Remeron) 7.5 mg QHS PO Last administered on 12/27/16 19:48; Start 12/01/16 at 21:00 Hydroxyzine HCl (Atarax) 25 mg PRN Q2HR PRN PO ANXIETY / AGITATION Last administered on 12/23/16 15:30; Start 12/01/16 at 18:15 Vitamin D (Vitamin D3) 50,000 unit WEEKLY PO Last administered on 12/24/16 12: 28; Start 12/03/16 at 09:00 Quetiapine Fumarate (SEROquel) 12.5 mg BID PO Last administered on 12/04/16 09: 31; Start 12/02/16 at 21:00; Stop 12/04/16 at 18:23; Status DC Quetiapine Fumarate (SEROquel) 12.5 mg QID PO Last administered on 12/06/16 16: 33; Start 12/04/16 at 21:00; Stop 12/06/16 at 17:46; Status DC Sertraline HCl (Zoloft) 50 mg DAILY PO Last administered on 12/27/16 07:43; Start 12/07/16 at 09:00 Rivastigmine (Exelon) 1 patch DAILY TD Last administered on 12/27/16 07:43; Start 12/07/16 at 09:00 Olanzapine (Zyprexa Zydis) 2.5 mg BID PO ; Start 12/06/16 at 21:00; Stop 12/06/16 at 21:00; Status DC Olanzapine (Zyprexa Zydis) 2.5 mg BID92 PO ; Start 12/06/16 at 21:00; Status Cancel Olanzapine (Zyprexa Zydis) 2.5 mg BID92 PO Last administered on 12/07/16 13:36 ; Start 12/07/16 at 09:00; Stop 12/07/16 at 18:46; Status DC Quetiapine Fumarate (SEROquel) 25 mg QID PO Last administered on 12/27/16 19: 48; Start 12/07/16 at 21:00 Buspirone HCl (Buspar) 5 mg BID PO Last administered on 12/09/16 08:35; Start 12/07/16 at 21:00; Stop 12/09/16 at 18:31; Status DC Buspirone HCl (Buspar) 5 mg TID PO Last administered on 12/12/16 13:25; Start 12/09/16 at 21:00; Stop 12/12/16 at 18:03; Status DC Buspirone HCl (Buspar) 5 mg QID PO Last administered on 12/14/16 17:05; Start 12/12/16 at 21:00; Stop 12/14/16 at 18:46; Status DC Buspirone HCl (Buspar) 10 mg TID PO Last administered on 12/27/16 19:48; Start 12/14/16 at 21:00 Docusate Sodium (Colace) 100 mg BID PO Last administered on 12/27/16 19:48; Start 12/17/16 at 21:00 Polyethylene Glycol (miraLAX) 17 gm DAILY PO Last administered on 12/27/16 07: 43; Start 12/18/16 at 09:00 Melatonin 3 mg QHS PO Last administered on 12/27/16 19:48; Start 12/18/16 at 21:00 Trazodone HCl (Desyrel) 12.5 mg 09,14 PO Last administered on 12/22/16 13:16; Start 12/20/16 at 09:00; Stop 12/22/16 at 18:06; Status DC Trazodone HCl (Desyrel) 12.5 mg TID PO Last administered on 12/27/16 19:48; Start 12/22/16 at 21:00 Divalproex Sodium (Depakote Sprinkles) 125 mg BID PO Last administered on 19:48; Start 12/25/16 at 21:00 Active Scripts Active Reported Zyprexa Zydis (Olanzapine) 10 Mg Tab.rapdis 10 Mg PO PRN Q4HRS PRN Zyprexa (Olanzapine) 2.5 Mg Tablet 2.5 Mg PO QHS Namenda (Memantine Hcl) 5 Mg Tablet 2.5 Mg PO QHS 4 Days Namenda (Memantine Hcl) 5 Mg Tablet 5 Mg PO DAILY 4 Days Synthroid (Levothyroxine Sodium) 25 Mcg Tablet 25 Mcg PO DAILY06 Zoloft (Sertraline Hcl) 25 Mg Tablet 25 Mg PO DAILY Oyster Shell 500 Mg + Vit D Tb (Calcium Carbonate/Vitamin D3) 1 Each Tablet 1 Tab PO DAILY Evista (Raloxifene Hcl) 60 Mg Tablet 60 Mg PO DAILY Gnp B-50 Complex Tablet (Vitamin B Complex/Folic Acid) 0.4 Mg Tablet.er 0.8 Mg PO DAILY Namenda Xr (Memantine Hcl) 7 Mg Cap.spr.24 7 Mg PO DAILY EXELON 4.6mg/24hr (Rivastigmine) 1 Each Patch.td24 1 Patch TD DAILY Diagnosis: Problems: (1) Mental status change (2) Anxiety disorder (3) Dementia in Alzheimer's disease with depression (4) Dementia, vascular, with delusions (5) Dementia, vascular, with depression (6) Impulse control disorder (7) Dementia in Alzheimer's disease with delusions YOGESH VELASQUEZ MD Dec 27, 2016 22:40
[2016-12-28] MEDS: LEVOTHYROXINE 25 MCG TABLET. PO SCH (05:59)
[2016-12-28 06:08] VITALS: BP 116/76
[2016-12-28] MEDS: FOLIC ACID 0.4 MG TABLET PO SCH (09:00)
[2016-12-28] MEDS: VITAMIN B COMPLEX CAPSULE. PO SCH (10:38)
[2016-12-28] MEDS: SERTRALINE 50 MG TABLET. PO SCH (10:39)
[2016-12-28] MEDS: traZODone 50 MG TABLET. PO SCH ×3 (10:39→19:49)
[2016-12-28] MEDS: CALCIUM CARB/VIT D3 500/200 TABLET PO SCH (10:39)
[2016-12-28] MEDS: DIVALPROEX 125 MG CAP.SPRINK PO SCH ×2 (10:39→19:49)
[2016-12-28] MEDS: QUEtiapine 25 MG TABLET. PO SCH ×4 (10:39→19:49)
[2016-12-28] MEDS: MEMANTINE 5 MG TABLET. PO SCH ×2 (10:40→19:49)
[2016-12-28] MEDS: RIVASTIGMINE 9.5MG PATCH. TD SCH (10:40)
[2016-12-28] MEDS: DOCUSATE SODIUM 100 MG CAPSULE PO SCH ×2 (10:40→19:49)
[2016-12-28] MEDS: POLYETHYLENE GLYCOL 3350 17 GM PACKET. PO SCH (10:40)
[2016-12-28] MEDS: busPIRone 10 MG TABLET. PO SCH ×3 (10:40→19:49)
[2016-12-28] MEDS: RALOXIFENE 60 MG TABLET. PO SCH (10:40)
[2016-12-28 13:49] LABS: BASO % 1 % (0-3); EOS # 0.3 x10^3/uL (0.0-0.7); EOS % 7 % (0-3); HEMATOCRIT 43.8 % (36.0-47.0); HEMOGLOBIN 14.1 g/dL (12.0-15.5); LYMPH # 1.3 x10^3/uL (1.0-4.8); LYMPH % 25 % (24-48); MEAN CORPUSCULAR HEMOGLOBIN 30 pg (25-35); MEAN CORPUSCULAR HGB CONC 32 g/dL (31-37); MEAN CORPUSCULAR VOLUME 93 fL (79-100); MONO # 0.5 x10^3/uL (0.0-1.1); MONO % 10 % (0-9); NEUT # 2.9 x10^3uL (1.8-7.7); NEUT % 57 % (31-73); PLATELET COUNT 224 x10^3/uL (140-400); RED BLOOD COUNT 4.69 x10^6/uL (3.50-5.40); RED CELL DISTRIBUTION WIDTH 14.2 % (11.5-14.5); WHITE BLOOD COUNT 5.1 x10^3/uL (4.0-11.0)
--- NOTE | 2016-12-28 14:10 | PN ---
DATE: 11/29/2016 SUBJECTIVE: This is a late entry 12/27/2016, covers elements not covered in my initial note. The patient is compliant with her medications and assessment. 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 No anger noted. 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 No family visited on 12/27/2016. REVIEW OF SYSTEMS: Ambulation impaired. No CV, , pulmonary, eye, or ENT system symptoms on review. MENTAL STATUS EXAM: Oriented to herself. Insight, judgment, recent and remote memory, attention, concentration, fund of knowledge poor, consistent with her diagnosis as mentioned in my initial note. PLAN: Continue current psychotropics. Adjust further as clinically indicated. MAN Jaclyn VELASQUEZ MD DR: AMARJIT/mason JOB#: [id number] / [id number]
[2016-12-28 14:15] LABS: ALBUMIN/GLOBULIN RATIO 0.8 (1.0-1.7); ALK PHOS 78 U/L (46-116); ALT (SGPT) 26 U/L (14-59); ANION GAP 8 (6-14); AST (SGOT) 20 U/L (15-37); BLOOD UREA NITROGEN 11 mg/dL (7-20); BUN/CREATININE RATIO 12 (6-20); CALCIUM 8.8 mg/dL (8.5-10.1); CARBON DIOXIDE 27 mmol/L (21-32); CHLORIDE 108 mmol/L (98-107); CREATININE 0.9 mg/dL (0.6-1.0); GFR 61.2; GLUCOSE 104 mg/dL (70-99); POTASSIUM 4.2 mmol/L (3.5-5.1); SODIUM 143 mmol/L (136-145); TOTAL BILIRUBIN 0.5 mg/dL (0.2-1.0); TOTAL PROTEIN 6.6 g/dL (6.4-8.2)
[2016-12-28 14:20] LABS: VAL ACID 21 mcg/mL (50-100)
[2016-12-28 15:56] VITALS: BP 137/70
[2016-12-28] MEDS: MIRTAZAPINE 7.5 MG TABLET. PO SCH (19:49)
[2016-12-28] MEDS: MELATONIN 3 MG TABLET PO SCH (19:49)
--- NOTE | 2016-12-28 21:04 | PDOC ---
Exam Olivier Demential Exam: Olivier Note: Please also refer to the separate dictated note~for this date of service dictated separately.~Patient seen individually. Discussed the patient with Nursing staff reviewed the chart.~Reviewed interim history and current functioning. Reviewed vital signs,~Labs/ Radiology~and current medications noted below. Continue current treatment with the changes noted in the dictated addendum note Assessment: Vital Signs: Vital Signs Date Time Temp Pulse Resp B/P Pulse Ox O2 Delivery O2 Flow Rate FiO2 12/28/16 15:56 98.4 95 20 137/70 96 I&O Intake and Output 12/28/16 07:00 Intake Total 720 ml Balance 720 ml Intake Oral 720 ml Labs: Laboratory Tests Test 12/28/16 13:30 White Blood Count 5.1x10^3/uL (4.0-11.0) Red Blood Count 4.69x10^6/uL (3.50-5.40) Hemoglobin 14.1g/dL (12.0-15.5) Hematocrit 43.8% (36.0-47.0) Mean Corpuscular Volume 93fL (79-100) Mean Corpuscular Hemoglobin 30pg (25-35) Mean Corpuscular Hemoglobin Concent 32g/dL (31-37) Red Cell Distribution Width 14.2% (11.5-14.5) Platelet Count 224x10^3/uL (140-400) Neutrophils (%) (Auto) 57% (31-73) Lymphocytes (%) (Auto) 25% (24-48) Monocytes (%) (Auto) 10% (0-9) H Eosinophils (%) (Auto) 7% (0-3) H Basophils (%) (Auto) 1% (0-3) Neutrophils # (Auto) 2.9x10^3uL (1.8-7.7) Lymphocytes # (Auto) 1.3x10^3/uL (1.0-4.8) Monocytes # (Auto) 0.5x10^3/uL (0.0-1.1) Eosinophils # (Auto) 0.3x10^3/uL (0.0-0.7) Basophils # (Auto) 0.0x10^3/uL (0.0-0.2) Sodium Level 143mmol/L (136-145) Potassium Level 4.2mmol/L (3.5-5.1) Chloride Level 108mmol/L (98-107) H Carbon Dioxide Level 27mmol/L (21-32) Anion Gap 8 (6-14) Blood Urea Nitrogen 11mg/dL (7-20) Creatinine 0.9mg/dL (0.6-1.0) Estimated GFR (Cockcroft-Gault) 61.2 BUN/Creatinine Ratio 12 (6-20) Glucose Level 104mg/dL (70-99) H Calcium Level 8.8mg/dL (8.5-10.1) Total Bilirubin 0.5mg/dL (0.2-1.0) Aspartate Amino Transferase (AST) 20U/L (15-37) Alanine Aminotransferase (ALT) 26U/L (14-59) Alkaline Phosphatase 78U/L (46-116) Total Protein 6.6g/dL (6.4-8.2) Albumin 3.0g/dL (3.4-5.0) L Albumin/Globulin Ratio 0.8 (1.0-1.7) L Valproic Acid Level 21mcg/mL (50-100) L Valproic Acid Last Dose Date 12/27/16 Valproic Acid Last Dose Time 2100 Current Medications: Meds: Current Medications Diphenhydramine HCl (Benadryl) 50 mg 1X ONCE PO Last administered on 20:00; Start 11/29/16 at 20:00; Stop 11/29/16 at 20:11; Status DC Olanzapine (Zyprexa) 10 mg 1X ONCE PO Last administered on 11/29/16 20:05; Start 11/29/16 at 20:00; Stop 11/29/16 at 20:12; Status DC Lorazepam (Ativan) 1 mg 1X ONCE PO Last administered on 11/29/16 20:05; Start 11/29/16 at 20:00; Stop 11/29/16 at 20:11; Status DC Diphenhydramine HCl (Benadryl) 25 mg STK-MED ONCE PO ; Start 11/29/16 at 20:02; Stop 11/29/16 at 20:03; Status DC Cephalexin HCl (Keflex) 500 mg TID PO Last administered on 12/01/16 13:48; Start 11/29/16 at 21:00; Stop 12/01/16 at 14:15; Status DC Acetaminophen (Tylenol) 650 mg PRN Q6HRS PRN PO PAIN / TEMP Last administered on 12/16/16 15:40; Start 11/29/16 at 20:45 Multi-Ingredient Ointment (Analgesic [place]) 1 sagar PRN QID PRN TP MUSCLE PAIN; Start 11/29/16 at 20:45 Al Hydroxide/Mg Hydroxide (Mylanta Plus Xs) 15 ml PRN AFTMEALHC PRN PO DYSPEPSIA; Start 11/29/16 at 20:45 Magnesium Hydroxide (Milk Of Magnesia) 2,400 mg PRN QHS PRN PO CONSTIPATION Last administered on 12/16/16 09:21; Start 11/29/16 at 20:45 Memantine (Namenda) 5 mg BID PO Last administered on 12/28/16 19:49; Start at 21:00 Rivastigmine (Exelon) 1 patch DAILY TD Last administered on 12/06/16 08:21; Start 11/30/16 at 09:00; Stop 12/06/16 at 12:19; Status DC Sertraline HCl (Zoloft) 25 mg DAILY PO Last administered on 12/06/16 08:20; Start 11/30/16 at 09:00; Stop 12/06/16 at 12:19; Status DC Olanzapine (Zyprexa Zydis) 2.5 mg PRN Q2HR PRN PO Psych Last administered on 09:46; Start 11/29/16 at 20:45 Calcium/Vitamin D (Oscal D 500mg/ 200uts) 1 tab DAILYWBKFT PO Last administered on 12/28/16 10:39; Start 11/30/16 at 08:00 Levothyroxine Sodium (Synthroid) 25 mcg DAILY06 PO Last administered on 05:59; Start 11/30/16 at 06:00 Raloxifene HCl (Evista) 60 mg DAILY PO Last administered on 12/28/16 10:40; Start 11/30/16 at 09:00 Vitamin B Complex 1 cap DAILY PO Last administered on 12/28/16 10:38; Start at 09:00; Stop 12/28/16 at 14:20; Status DC Iohexol (Omnipaque 300 Mg/ml) 75 ml 1X ONCE IV ; Start 11/29/16 at 22:45; Stop 11/29/16 at 22:46; Status DC Info (Do NOT chart on this entry -- for MONITORING) 1 each PRN DAILY PRN MC SEE COMMENTS; Start 11/29/16 at 22:45; Stop 12/01/16 at 22:44; Status DC Folic Acid (Folic Acid) 0.8 mg DAILY PO Last administered on 12/25/16 10:30; Start 11/30/16 at 09:00; Stop 12/28/16 at 14:21; Status DC Trazodone HCl (Desyrel) 50 mg PRN QHS PRN PO INSOMNIA, MAY REPEAT X1 Last administered on 12/23/16 21:52; Start 11/30/16 at 16:45 Amoxicillin (Amoxil) 500 mg OQU326 PO Last administered on 12/08/16 12:33; Start 12/01/16 at 21:00; Stop 12/08/16 at 20:59; Status DC Mirtazapine (Remeron) 7.5 mg QHS PO Last administered on 12/28/16 19:49; Start 12/01/16 at 21:00 Hydroxyzine HCl (Atarax) 25 mg PRN Q2HR PRN PO ANXIETY / AGITATION Last administered on 12/23/16 15:30; Start 12/01/16 at 18:15 Vitamin D (Vitamin D3) 50,000 unit WEEKLY PO Last administered on 12/24/16 12: 28; Start 12/03/16 at 09:00 Quetiapine Fumarate (SEROquel) 12.5 mg BID PO Last administered on 12/04/16 09: 31; Start 12/02/16 at 21:00; Stop 12/04/16 at 18:23; Status DC Quetiapine Fumarate (SEROquel) 12.5 mg QID PO Last administered on 12/06/16 16: 33; Start 12/04/16 at 21:00; Stop 12/06/16 at 17:46; Status DC Sertraline HCl (Zoloft) 50 mg DAILY PO Last administered on 12/28/16 10:39; Start 12/07/16 at 09:00 Rivastigmine (Exelon) 1 patch DAILY TD Last administered on 12/28/16 10:40; Start 12/07/16 at 09:00 Olanzapine (Zyprexa Zydis) 2.5 mg BID PO ; Start 12/06/16 at 21:00; Stop 12/06/16 at 21:00; Status DC Olanzapine (Zyprexa Zydis) 2.5 mg BID92 PO ; Start 12/06/16 at 21:00; Status Cancel Olanzapine (Zyprexa Zydis) 2.5 mg BID92 PO Last administered on 12/07/16 13:36 ; Start 12/07/16 at 09:00; Stop 12/07/16 at 18:46; Status DC Quetiapine Fumarate (SEROquel) 25 mg QID PO Last administered on 12/28/16 19: 49; Start 12/07/16 at 21:00 Buspirone HCl (Buspar) 5 mg BID PO Last administered on 12/09/16 08:35; Start 12/07/16 at 21:00; Stop 12/09/16 at 18:31; Status DC Buspirone HCl (Buspar) 5 mg TID PO Last administered on 12/12/16 13:25; Start 12/09/16 at 21:00; Stop 12/12/16 at 18:03; Status DC Buspirone HCl (Buspar) 5 mg QID PO Last administered on 12/14/16 17:05; Start 12/12/16 at 21:00; Stop 12/14/16 at 18:46; Status DC Buspirone HCl (Buspar) 10 mg TID PO Last administered on 12/28/16 19:49; Start 12/14/16 at 21:00 Docusate Sodium (Colace) 100 mg BID PO Last administered on 12/28/16 19:49; Start 12/17/16 at 21:00 Polyethylene Glycol (miraLAX) 17 gm DAILY PO Last administered on 12/28/16 10: 40; Start 12/18/16 at 09:00 Melatonin 3 mg QHS PO Last administered on 12/28/16 19:49; Start 12/18/16 at 21:00 Trazodone HCl (Desyrel) 12.5 mg 09,14 PO Last administered on 12/22/16 13:16; Start 12/20/16 at 09:00; Stop 12/22/16 at 18:06; Status DC Trazodone HCl (Desyrel) 12.5 mg TID PO Last administered on 12/28/16 19:49; Start 12/22/16 at 21:00 Divalproex Sodium (Depakote Sprinkles) 125 mg BID PO Last administered on 19:49; Start 12/25/16 at 21:00 Folic Acid (Folic Acid) 1 mg DAILY PO ; Start 12/29/16 at 09:00 Vitamin B Complex 1 cap DAILY PO ; Start 12/29/16 at 09:00 Active Scripts Active Reported Zyprexa Zydis (Olanzapine) 10 Mg Tab.rapdis 10 Mg PO PRN Q4HRS PRN Zyprexa (Olanzapine) 2.5 Mg Tablet 2.5 Mg PO QHS Namenda (Memantine Hcl) 5 Mg Tablet 2.5 Mg PO QHS 4 Days Namenda (Memantine Hcl) 5 Mg Tablet 5 Mg PO DAILY 4 Days Synthroid (Levothyroxine Sodium) 25 Mcg Tablet 25 Mcg PO DAILY06 Zoloft (Sertraline Hcl) 25 Mg Tablet 25 Mg PO DAILY Oyster Shell 500 Mg + Vit D Tb (Calcium Carbonate/Vitamin D3) 1 Each Tablet 1 Tab PO DAILY Evista (Raloxifene Hcl) 60 Mg Tablet 60 Mg PO DAILY Gnp B-50 Complex Tablet (Vitamin B Complex/Folic Acid) 0.4 Mg Tablet.er 0.8 Mg PO DAILY Namenda Xr (Memantine Hcl) 7 Mg Cap.spr.24 7 Mg PO DAILY EXELON 4.6mg/24hr (Rivastigmine) 1 Each Patch.td24 1 Patch TD DAILY Diagnosis: Problems: (1) Mental status change (2) Anxiety disorder (3) Dementia in Alzheimer's disease with depression (4) Dementia, vascular, with delusions (5) Dementia, vascular, with depression (6) Dementia in Alzheimer's disease with delusions (7) Impulse control disorder YOGESH VELASQUEZ MD Dec 28, 2016 21:04
--- NOTE | 2016-12-28 21:23 | PN ---
DATE: 12/26/2016 SUBJECTIVE: This is a late entry 12/26/2016, covers elements not covered in my initial note. 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 REVIEW OF SYSTEMS: No CV, , pulmonary, eye, or ENT system symptoms on review. Gait, unsteady. She is in a Broda chair, constantly moving her hands over the table instructing people to do things and calling out for Ty and Ugo. MENTAL STATUS EXAM: Insight, judgment, recent and remote memory, attention, concentration, fund of knowledge poor, consistent with her diagnosis mentioned in my initial note. PLAN: Continue current psychotropics. Adjust further as clinically indicated. MAN Jaclyn VELASQUEZ MD DR: AMARJIT/mason JOB#: [id number] / [id number]
[2016-12-29] MEDS: LEVOTHYROXINE 25 MCG TABLET. PO SCH (05:43)
[2016-12-29 06:22] VITALS: BP 110/69
[2016-12-29] MEDS: QUEtiapine 25 MG TABLET. PO SCH ×4 (09:15→19:27)
[2016-12-29] MEDS: CALCIUM CARB/VIT D3 500/200 TABLET PO SCH (09:15)
[2016-12-29] MEDS: MEMANTINE 5 MG TABLET. PO SCH ×2 (09:15→19:26)
[2016-12-29] MEDS: RALOXIFENE 60 MG TABLET. PO SCH (09:15)
[2016-12-29] MEDS: DIVALPROEX 125 MG CAP.SPRINK PO SCH ×2 (09:15→19:26)
[2016-12-29] MEDS: DOCUSATE SODIUM 100 MG CAPSULE PO SCH ×2 (09:15→19:27)
[2016-12-29] MEDS: SERTRALINE 50 MG TABLET. PO SCH (09:15)
[2016-12-29] MEDS: busPIRone 10 MG TABLET. PO SCH ×3 (09:15→19:28)
[2016-12-29] MEDS: traZODone 50 MG TABLET. PO SCH ×3 (09:16→19:28)
[2016-12-29] MEDS: RIVASTIGMINE 9.5MG PATCH. TD SCH (09:16)
[2016-12-29] MEDS: POLYETHYLENE GLYCOL 3350 17 GM PACKET. PO SCH (09:16)
[2016-12-29] MEDS: FOLIC ACID 1 MG TABLET PO SCH (09:32)
[2016-12-29] MEDS: VITAMIN B COMPLEX CAPSULE. PO SCH (09:33)
[2016-12-29 16:18] VITALS: BP 136/61
[2016-12-29] MEDS: MELATONIN 3 MG TABLET PO SCH (19:26)
[2016-12-29] MEDS: MIRTAZAPINE 7.5 MG TABLET. PO SCH (19:26)
--- NOTE | 2016-12-29 21:00 | PDOC ---
Exam Olivier Demential Exam: Olivier Note: Please also refer to the separate dictated note~for this date of service dictated separately.~Patient seen individually. Discussed the patient with Nursing staff reviewed the chart.~Reviewed interim history and current functioning. Reviewed vital signs,~Labs/ Radiology~and current medications noted below. Continue current treatment with the changes noted in the dictated addendum note Assessment: Vital Signs: Vital Signs Date Time Temp Pulse Resp B/P Pulse Ox O2 Delivery O2 Flow Rate FiO2 12/29/16 16:18 98.0 61 18 136/61 96 I&O Intake and Output 12/29/16 07:00 Intake Total 600 ml Balance 600 ml Intake Oral 600 ml Current Medications: Meds: Current Medications Diphenhydramine HCl (Benadryl) 50 mg 1X ONCE PO Last administered on 20:00; Start 11/29/16 at 20:00; Stop 11/29/16 at 20:11; Status DC Olanzapine (Zyprexa) 10 mg 1X ONCE PO Last administered on 11/29/16 20:05; Start 11/29/16 at 20:00; Stop 11/29/16 at 20:12; Status DC Lorazepam (Ativan) 1 mg 1X ONCE PO Last administered on 11/29/16 20:05; Start 11/29/16 at 20:00; Stop 11/29/16 at 20:11; Status DC Diphenhydramine HCl (Benadryl) 25 mg STK-MED ONCE PO ; Start 11/29/16 at 20:02; Stop 11/29/16 at 20:03; Status DC Cephalexin HCl (Keflex) 500 mg TID PO Last administered on 12/01/16 13:48; Start 11/29/16 at 21:00; Stop 12/01/16 at 14:15; Status DC Acetaminophen (Tylenol) 650 mg PRN Q6HRS PRN PO PAIN / TEMP Last administered on 12/16/16 15:40; Start 11/29/16 at 20:45 Multi-Ingredient Ointment (Analgesic [place]) 1 sagar PRN QID PRN TP MUSCLE PAIN; Start 11/29/16 at 20:45 Al Hydroxide/Mg Hydroxide (Mylanta Plus Xs) 15 ml PRN AFTMEALHC PRN PO DYSPEPSIA; Start 11/29/16 at 20:45 Magnesium Hydroxide (Milk Of Magnesia) 2,400 mg PRN QHS PRN PO CONSTIPATION Last administered on 12/16/16 09:21; Start 11/29/16 at 20:45 Memantine (Namenda) 5 mg BID PO Last administered on 12/29/16 19:26; Start at 21:00 Rivastigmine (Exelon) 1 patch DAILY TD Last administered on 12/06/16 08:21; Start 11/30/16 at 09:00; Stop 12/06/16 at 12:19; Status DC Sertraline HCl (Zoloft) 25 mg DAILY PO Last administered on 12/06/16 08:20; Start 11/30/16 at 09:00; Stop 12/06/16 at 12:19; Status DC Olanzapine (Zyprexa Zydis) 2.5 mg PRN Q2HR PRN PO Psych Last administered on 09:46; Start 11/29/16 at 20:45 Calcium/Vitamin D (Oscal D 500mg/ 200uts) 1 tab DAILYWBKFT PO Last administered on 12/29/16 09:15; Start 11/30/16 at 08:00 Levothyroxine Sodium (Synthroid) 25 mcg DAILY06 PO Last administered on 05:43; Start 11/30/16 at 06:00 Raloxifene HCl (Evista) 60 mg DAILY PO Last administered on 12/29/16 09:15; Start 11/30/16 at 09:00 Vitamin B Complex 1 cap DAILY PO Last administered on 12/28/16 10:38; Start at 09:00; Stop 12/28/16 at 14:20; Status DC Iohexol (Omnipaque 300 Mg/ml) 75 ml 1X ONCE IV ; Start 11/29/16 at 22:45; Stop 11/29/16 at 22:46; Status DC Info (Do NOT chart on this entry -- for MONITORING) 1 each PRN DAILY PRN MC SEE COMMENTS; Start 11/29/16 at 22:45; Stop 12/01/16 at 22:44; Status DC Folic Acid (Folic Acid) 0.8 mg DAILY PO Last administered on 12/25/16 10:30; Start 11/30/16 at 09:00; Stop 12/28/16 at 14:21; Status DC Trazodone HCl (Desyrel) 50 mg PRN QHS PRN PO INSOMNIA, MAY REPEAT X1 Last administered on 12/23/16 21:52; Start 11/30/16 at 16:45 Amoxicillin (Amoxil) 500 mg QFH280 PO Last administered on 12/08/16 12:33; Start 12/01/16 at 21:00; Stop 12/08/16 at 20:59; Status DC Mirtazapine (Remeron) 7.5 mg QHS PO Last administered on 12/29/16 19:26; Start 12/01/16 at 21:00 Hydroxyzine HCl (Atarax) 25 mg PRN Q2HR PRN PO ANXIETY / AGITATION Last administered on 12/23/16 15:30; Start 12/01/16 at 18:15 Vitamin D (Vitamin D3) 50,000 unit WEEKLY PO Last administered on 12/24/16 12: 28; Start 12/03/16 at 09:00 Quetiapine Fumarate (SEROquel) 12.5 mg BID PO Last administered on 12/04/16 09: 31; Start 12/02/16 at 21:00; Stop 12/04/16 at 18:23; Status DC Quetiapine Fumarate (SEROquel) 12.5 mg QID PO Last administered on 12/06/16 16: 33; Start 12/04/16 at 21:00; Stop 12/06/16 at 17:46; Status DC Sertraline HCl (Zoloft) 50 mg DAILY PO Last administered on 12/29/16 09:15; Start 12/07/16 at 09:00 Rivastigmine (Exelon) 1 patch DAILY TD Last administered on 12/29/16 09:16; Start 12/07/16 at 09:00 Olanzapine (Zyprexa Zydis) 2.5 mg BID PO ; Start 12/06/16 at 21:00; Stop 12/06/16 at 21:00; Status DC Olanzapine (Zyprexa Zydis) 2.5 mg BID92 PO ; Start 12/06/16 at 21:00; Status Cancel Olanzapine (Zyprexa Zydis) 2.5 mg BID92 PO Last administered on 12/07/16 13:36 ; Start 12/07/16 at 09:00; Stop 12/07/16 at 18:46; Status DC Quetiapine Fumarate (SEROquel) 25 mg QID PO Last administered on 12/29/16 19: 27; Start 12/07/16 at 21:00 Buspirone HCl (Buspar) 5 mg BID PO Last administered on 12/09/16 08:35; Start 12/07/16 at 21:00; Stop 12/09/16 at 18:31; Status DC Buspirone HCl (Buspar) 5 mg TID PO Last administered on 12/12/16 13:25; Start 12/09/16 at 21:00; Stop 12/12/16 at 18:03; Status DC Buspirone HCl (Buspar) 5 mg QID PO Last administered on 12/14/16 17:05; Start 12/12/16 at 21:00; Stop 12/14/16 at 18:46; Status DC Buspirone HCl (Buspar) 10 mg TID PO Last administered on 12/29/16 19:28; Start 12/14/16 at 21:00 Docusate Sodium (Colace) 100 mg BID PO Last administered on 12/29/16 19:27; Start 12/17/16 at 21:00 Polyethylene Glycol (miraLAX) 17 gm DAILY PO Last administered on 12/29/16 09: 16; Start 12/18/16 at 09:00 Melatonin 3 mg QHS PO Last administered on 12/29/16 19:26; Start 12/18/16 at 21:00 Trazodone HCl (Desyrel) 12.5 mg 09,14 PO Last administered on 12/22/16 13:16; Start 12/20/16 at 09:00; Stop 12/22/16 at 18:06; Status DC Trazodone HCl (Desyrel) 12.5 mg TID PO Last administered on 12/29/16 19:28; Start 12/22/16 at 21:00 Divalproex Sodium (Depakote Sprinkles) 125 mg BID PO Last administered on 19:26; Start 12/25/16 at 21:00 Folic Acid (Folic Acid) 1 mg DAILY PO Last administered on 12/29/16 09:32; Start 12/29/16 at 09:00 Vitamin B Complex 1 cap DAILY PO Last administered on 12/29/16 09:33; Start at 09:00 Active Scripts Active Reported Zyprexa Zydis (Olanzapine) 10 Mg Tab.rapdis 10 Mg PO PRN Q4HRS PRN Zyprexa (Olanzapine) 2.5 Mg Tablet 2.5 Mg PO QHS Namenda (Memantine Hcl) 5 Mg Tablet 2.5 Mg PO QHS 4 Days Namenda (Memantine Hcl) 5 Mg Tablet 5 Mg PO DAILY 4 Days Synthroid (Levothyroxine Sodium) 25 Mcg Tablet 25 Mcg PO DAILY06 Zoloft (Sertraline Hcl) 25 Mg Tablet 25 Mg PO DAILY Oyster Shell 500 Mg + Vit D Tb (Calcium Carbonate/Vitamin D3) 1 Each Tablet 1 Tab PO DAILY Evista (Raloxifene Hcl) 60 Mg Tablet 60 Mg PO DAILY Gnp B-50 Complex Tablet (Vitamin B Complex/Folic Acid) 0.4 Mg Tablet.er 0.8 Mg PO DAILY Namenda Xr (Memantine Hcl) 7 Mg Cap.spr.24 7 Mg PO DAILY EXELON 4.6mg/24hr (Rivastigmine) 1 Each Patch.td24 1 Patch TD DAILY Diagnosis: Problems: (1) Mental status change (2) Anxiety disorder (3) Dementia in Alzheimer's disease with depression (4) Dementia, vascular, with delusions (5) Dementia, vascular, with depression (6) Dementia in Alzheimer's disease with delusions (7) Impulse control disorder YOGESH VELASQUEZ MD Dec 29, 2016 21:00
--- NOTE | 2016-12-29 22:39 | PN ---
DATE: 12/28/2016 This late entry covers elements not covered in my initial note. SUBJECTIVE: Overall, per nursing report, the patient remains confused, restless, anxious, constantly talking at times rather loudly disrupting the unit, but redirects. She is not aggressive. REVIEW OF SYSTEMS: Ambulation impaired. No CV, , pulmonary, eye system symptoms on review. Reliability poor. MENTAL STATUS EXAM: Oriented to herself. Insight, judgment, recent and remote memory, attention, concentration, fund of knowledge poor, consistent with her diagnosis mentioned in my initial note. Valproic acid level is 21, even though it is subtherapeutic clinically, it is adequate for her. IMPRESSION: Unchanged from my initial note. PLAN: Continue current psychotropics. If behaviors persist and are really disruptive at the nursing facility, Depakote may need to be increased. MAN Jaclyn VELASQUEZ MD DR: AMARJIT/mason JOB#: [id number] / [id number]
[2016-12-30] MEDS ORDERED: ACET325T9 PO (00:34)
[2016-12-30] MEDS ORDERED: CHOL500050 PO (00:35)
[2016-12-30] MEDS ORDERED: DIVA125C PO (00:36)
[2016-12-30] MEDS ORDERED: DOCU100C5 PO (00:36)
[2016-12-30] MEDS ORDERED: MAG355OR17 PO (00:40)
[2016-12-30] MEDS ORDERED: MAGN2400 PO (00:40)
[2016-12-30] MEDS ORDERED: METH29OI TP (00:42)
[2016-12-30] MEDS ORDERED: POLY17PO5 PO (00:43)
[2016-12-30] MEDS ORDERED: HYDR25TA PO (00:45)
[2016-12-30] MEDS ORDERED: MELA3TAB PO (00:46)
[2016-12-30] MEDS ORDERED: MIRT15TA3 PO (00:48)
[2016-12-30] MEDS ORDERED: QUET25TA5 PO (00:50)
[2016-12-30] MEDS ORDERED: RIVA1PAT3 TD (00:51)
[2016-12-30] MEDS ORDERED: SERT50TA PO (00:52)
[2016-12-30] MEDS ORDERED: BUSP10TA PO ×2 (00:53→07:40)
[2016-12-30] MEDS ORDERED: TRAZ50TA15 PO ×2 (00:54→00:56)
[2016-12-30] MEDS: LEVOTHYROXINE 25 MCG TABLET. PO SCH (05:42)
[2016-12-30 06:33] VITALS: BP 130/72
[2016-12-30] MEDS: DOCUSATE SODIUM 100 MG CAPSULE PO SCH (08:46)
[2016-12-30] MEDS: QUEtiapine 25 MG TABLET. PO SCH (08:47)
[2016-12-30] MEDS: RIVASTIGMINE 9.5MG PATCH. TD SCH (08:47)
[2016-12-30] MEDS: RALOXIFENE 60 MG TABLET. PO SCH (08:47)
[2016-12-30] MEDS: SERTRALINE 50 MG TABLET. PO SCH (08:47)
[2016-12-30] MEDS: VITAMIN B COMPLEX CAPSULE. PO SCH (08:47)
[2016-12-30] MEDS: MEMANTINE 5 MG TABLET. PO SCH (08:47)
[2016-12-30] MEDS: FOLIC ACID 1 MG TABLET PO SCH (08:47)
[2016-12-30] MEDS: POLYETHYLENE GLYCOL 3350 17 GM PACKET. PO SCH (08:47)
[2016-12-30] MEDS: DIVALPROEX 125 MG CAP.SPRINK PO SCH (08:47)
[2016-12-30] MEDS: busPIRone 10 MG TABLET. PO SCH (08:48)
[2016-12-30] MEDS: traZODone 50 MG TABLET. PO SCH (08:48)
[2016-12-30] MEDS: CALCIUM CARB/VIT D3 500/200 TABLET PO SCH (08:49)
--- NOTE | 2016-12-30 22:20 | PN ---
DATE: 12/29/2016 PSYCHIATRIC PROGRESS NOTE This is a late entry 12/29/2016 covers elements not covered in my initial note. SUBJECTIVE: Per nursing report, the patient had a good night. Speech is word salad. She is anxious, restless, constantly moving and talking, but redirectable. REVIEW OF SYSTEMS: No CV, , pulmonary, eye, ENT system symptoms on review. Reliability poor. MENTAL STATUS EXAM: Oriented to herself. Insight, judgment, recent and remote memory, attention, concentration, fund of knowledge poor, consistent with her diagnosis mentioned in my initial note. PLAN: Continue current psychotropics. Transition to [facility] on 12/30/2016. MAN Jaclyn VELASQUEZ MD DR: AMARJIT/mason JOB#: [id number] / [id number]
--- NOTE | 2016-12-31 20:40 | DS ---
DATE OF DISCHARGE: 12/30/2016 DISCHARGE SUMMARY/PSYCHIATRIC PROGRESS NOTE This is a late entry for 12/30/2016, covers elements not covered in my initial note of 12/30/2016. REASON FOR ADMISSION: Please refer to the admission history for details. Briefly, the patient is a 76-year-old female with severe dementia, Alzheimer's, vascular with delusion, depression, behavioral disturbance, referred from [facility] by her primary care physician on account of increased hallucinations, increased confusion, urinating on the floor, crawling on the floor. She had failed outpatient psychiatric interventions. Behaviors were unmanageable and referred for inpatient psychiatric stabilization. SIGNIFICANT FINDINGS AND CLINICAL COURSE: Following admission, the patient was seen daily individually by myself, followed medically per Dr. Bob/Dr. Carson. The patient was extremely confused, agitated, anxious, restless, psychotic, but love to walk and this seemed to help her anxiety. Adjustments were made in her psychotropics and she seemed to respond to a combination of Exelon patch 9.5 mg a day, Namenda 5 mg b.i.d., Zoloft 50 mg a day, Zyprexa p.r.n., trazodone 50 mg at bedtime p.r.n. and may repeat x 1, Remeron 7.5 mg at bedtime, Atarax p.r.n., Seroquel 25 mg q.i.d., BuSpar 10 mg four times a day, trazodone 12.5 three times a day, Depakote 125 mg b.i.d. REVIEW OF SYSTEMS: Prior to discharge on 12/30/2016, ambulation impaired. No CV, , pulmonary, eye, ENT system symptoms on review. Reliability poor. MENTAL STATUS EXAM: Oriented to herself. Insight, judgment, recent and remote memory, attention, concentration, fund of knowledge poor, consistent with her diagnosis. VITAL SIGNS: Temperature 96.9, BP 114/63, pulse 82, respirations 18. FINAL DIAGNOSES: Major neurocognitive disorder, Alzheimer, vascular with depression, delusion, behavioral disturbance; anxiety disorder, unspecified; impulse control disorder, unspecified. Rest diagnoses, unchanged from admission. DISCHARGE MEDICATIONS: Please refer to the MRAD. DISCHARGE INSTRUCTIONS: Outpatient psychiatric and medical followup at the [facility]. Time for discharge day management greater than 30 minutes. MAN Jaclyn VELASQUEZ MD DR: Soren JOB#: [id number] / [id number]
== END 2016-12-30 10:10 | DRG 884 ==
LOC: EEVIPCON 18:42 → ER 18:42 → GEROPSY 20:29
PROVIDERS: ADMIT Psychiatry & Neurology Psychiatry; ATTEND Psychiatry & Neurology Psychiatry
DX: F01.51 Vascular dementia, unspecified severity, with behavioral disturbance (principal); F02.81 Dementia in other diseases classified elsewhere, unspecified severity, with behavioral disturbance; N39.0 Urinary tract infection, site not specified; G30.9 Alzheimer's disease, unspecified; E03.9 Hypothyroidism, unspecified; E04.1 Nontoxic single thyroid nodule; F32.9 Major depressive disorder, single episode, unspecified; F41.9 Anxiety disorder, unspecified; F63.9 Impulse disorder, unspecified; K59.00 Constipation, unspecified; M81.0 Age-related osteoporosis without current pathological fracture; Z66 Do not resuscitate; R29.6 Repeated falls; E05.90 Thyrotoxicosis, unspecified without thyrotoxic crisis or storm; K44.9 Diaphragmatic hernia without obstruction or gangrene; Z79.899 Other long term (current) drug therapy; Z91.81 History of falling
CPT/HCPCS: 36415; 51702; 70450; 71020; 71275; 80048; 80053; 80061; 80076; 80164; 81001; 82306; 82553; 82607; 83036; 83540; 83550; 83690; 83735; 83880; 84436; 84443; 84480; 84484; 85027; 85379; 85610; 85651; 85730; 86140; 86592; 86593; 87086; 87186; 93005; 93970; G0481; Q0163; 97110; 97116; 97530; 97535; 99285-25